=== PATIENT | male | born 1990 | race Caucasian/White ===

== ENCOUNTER 2020-11-14 13:23 | Outpatient (REF) | payer OTHER, SELFPAY ==
[2020-11-14 13:50] LABS: MANUAL DIFF FLAG NO
[2020-11-14 13:57] LABS: Basophils Percent Auto 0.4 % (0-2); Eosinophils Percent Auto 0.8 % (0-4); Hematocrit 42.2 % (42-52); Hemoglobin 13.8 g/dl (14.0-18.0); Imm Gran Abs Auto 0.01 X10*3/uL (0.00-0.03); Imm Gran Pct Auto 0.2 % (0.0-0.4); Lymphocytes Absolute Auto 1.5 X10*3/uL (1.2-4.9); Lymphocytes Percent Auto 30.1 % (20-40); Mean Corpuscular HGB Conc 32.7 g/dl (31.0-36.0); Mean Corpuscular Hemoglobin 28.4 pg (27.0-33.0); Mean Corpuscular Volume 86.8 fL (80-98); Mean Platelet Volume 10.5 fL (9.4-12.4); Monocytes Absolute Auto 0.6 X10*3/uL (0.1-1.2); Monocytes Percent Auto 11.5 % (2-11); Neutrophils Absolute Auto 2.8 X10*3/uL (2.0-8.3); Platelet Count 316 X10*3/uL (160-400); Red Blood Count 4.86 X10*6/uL (4.60-5.80); Red Cell Distribution Width 11.8 % (11.0-16.0); White Blood Count 4.9 X10*3/uL (4.8-10.8)
[2020-11-14 14:19] LABS: Alanine Aminotransferase 29 U/L (0-40); Albumin Level 4.2 g/dL (3.5-5.0); Alkaline Phosphatase 95 U/L (39-117); Anion Gap 13 (12-20); Aspartate Amino Transferase 20 U/L (5-37); Bilirubin Total 0.6 mg/dL (0.0-1.0); Blood Urea Nitrogen 14 mg/dL (9-16); Calcium 8.6 mg/dL (8.4-10.2); Carbon Dioxide 24 mmol/L (22-29); Chloride 107 mmol/L (96-108); Cholesterol 153 mg/dL; Estimated Glomerular Filt Rate > 60; Glucose Fasting 102 mg/dL (60-99); HDL Cholesterol 47 mg/dL; LDL Cholesterol Calculated 99 mg/dl; Potassium 4.4 mmol/L (3.3-5.1); Sodium 140 mmol/L (135-145); Total Protein 6.5 g/dL (6.5-8.0); Triglycerides 38 mg/dL
== END 2020-11-14 13:24 | disposition home or self-care (01) ==
LOC: HO.LAB 13:23
PROVIDERS: PCP Internal Medicine; Visit Provider Internal Medicine
DX: Z00.00 Encounter for general adult medical examination without abnormal findings (principal); E11.9 Type 2 diabetes mellitus without complications
CPT/HCPCS: 36415; 80053; 80061; 85025

== ENCOUNTER 2020-12-29 15:06 | Outpatient (REF) | payer OTHER, SELFPAY ==
--- NOTE | ~2020-12-29 | XR_ITS ---
EXAMINATION: XR KNEE, RIGHT CLINICAL INFORMATION: Pain COMPARISON: None TECHNIQUE: Four views of the right knee. FINDINGS: Postsurgical changes from cruciate ligament repair. Bones and soft tissues are normal. No fracture or joint effusion. Alignment is anatomic. Mild narrowing of medial joint space suggest mild DJD.. No abnormal soft tissue calcification. XR/XR knee RT 4V IMPRESSION: Postoperative changes. Mild DJD medial compartment.
== END 2020-12-29 15:07 | disposition home or self-care (01) ==
LOC: HO.XRAY 15:06
PROVIDERS: PCP Internal Medicine; Visit Provider Nurse Practitioner Family
DX: M25.561 Pain in right knee (principal)
CPT/HCPCS: 73564

== ENCOUNTER 2021-01-25 14:00 | Outpatient (RCR) | payer OTHER, SELFPAY | END 2021-03-02 10:10 | disposition other institution (70) | LOC: HO.OT 14:00 | PROVIDERS: PCP Internal Medicine; Visit Provider Nurse Practitioner Family | DX: M77.01 Medial epicondylitis, right elbow (principal) | CPT/HCPCS: 97033; 97110; 97140; 97166 ==

== ENCOUNTER 2021-07-11 17:04 | Outpatient (REF) | payer OTHER, SELFPAY ==
--- NOTE | ~2021-07-11 | XR_ITS ---
EXAMINATION: XR CHEST CLINICAL INFORMATION: Bronchitis COMPARISON: Previous chest x-ray most recent October 2018 TECHNIQUE: 2 views of the chest were obtained. FINDINGS: The cardiac and mediastinal contours are normal. There is increased attenuation in the right upper lung questionable for small right upper lobe pneumonia. This overlies the right anterior third rib. The lungs are otherwise clear. There is no pleural effusion or pneumothorax. Bony structures are unremarkable. XR/XR chest 2V IMPRESSION: Question small right upper lobe pneumonia.
[2021-07-11 17:14] LABS: MANUAL DIFF FLAG NO
[2021-07-11 17:49] LABS: Basophils Percent Auto 0.1 % (0-2); Hematocrit 47.6 % (42.0-52.0); Hemoglobin 15.6 g/dl (14.0-18.0); Imm Gran Abs Auto 0.03 X10*3/uL (0.00-0.03); Imm Gran Pct Auto 0.4 % (0.0-0.4); Lymphocytes Absolute Auto 0.7 X10*3/uL (1.2-4.9); Mean Corpuscular HGB Conc 32.8 g/dl (31.0-36.0); Mean Corpuscular Hemoglobin 27.9 pg (27.0-33.0); Mean Platelet Volume 10.9 fL (9.4-12.4); Monocytes Absolute Auto 0.2 X10*3/uL (0.1-1.2); Monocytes Percent Auto 1.8 % (2-11); Neutrophils Absolute Auto 7.4 x10*3/uL (2.0-8.3); Neutrophils Percent Auto 89.7 % (45-73); Platelet Count 297 X10*3/uL (160-400); Red Cell Distribution Width 11.6 % (11.0-16.0); White Blood Count 8.3 X10*3/uL (4.8-10.8)
[2021-07-11 18:14] LABS: Alanine Aminotransferase 50 U/L (0-40); Albumin Level 4.7 g/dL (3.5-5.0); Alkaline Phosphatase 90 U/L (39-117); Anion Gap 13 (12-20); Aspartate Amino Transferase 42 U/L (5-37); Bilirubin Total 0.6 mg/dL (0.0-1.0); Blood Urea Nitrogen 13 mg/dL (9-16); Calcium 9.4 mg/dL (8.4-10.2); Carbon Dioxide 29 mmol/L (22-29); Chloride 102 mmol/L (96-108); Cholesterol 143 mg/dL; Estimated Glomerular Filt Rate > 60; Glucose Fasting 86 mg/dL (60-99); HDL Cholesterol 37 mg/dL; LDL Cholesterol Calculated 88 mg/dl; Potassium 4.3 mmol/L (3.3-5.1); Sodium 140 mmol/L (135-145); Total Protein 7.7 g/dL (6.5-8.0); Triglycerides 94 mg/dL
[2021-07-11 18:35] LABS: Thyroid Stimulating Hormone 0.59 uIU/mL (0.32-4.0)
== END 2021-07-11 17:05 | disposition home or self-care (01) ==
LOC: HO.XRAY 17:04
PROVIDERS: PCP Physician Assistant; Visit Provider Internal Medicine
DX: Z00.00 Encounter for general adult medical examination without abnormal findings (principal); J40 Bronchitis, not specified as acute or chronic
CPT/HCPCS: 36415; 71046; 80053; 80061; 84443; 85025

== ENCOUNTER → 2021-12-05 14:13 | Outpatient (BNVA) | payer OTHER, SELFPAY | PROVIDERS: PCP Internal Medicine; Referring Provider Internal Medicine; Visit Provider Internal Medicine | DX: R01.1 Cardiac murmur, unspecified (principal); R00.2 Palpitations | CPT/HCPCS: 93005; 99202 ==

== ENCOUNTER → 2021-12-14 10:09 | Outpatient (BNVA) | payer OTHER, SELFPAY | PROVIDERS: PCP Internal Medicine; Referring Provider Internal Medicine; Visit Provider Surgery | DX: L72.3 Sebaceous cyst (principal); L98.9 Disorder of the skin and subcutaneous tissue, unspecified; I88.9 Nonspecific lymphadenitis, unspecified | CPT/HCPCS: 99202 ==

== ENCOUNTER 2021-12-21 14:05 | Outpatient (REF) | payer OTHER, SELFPAY ==
--- NOTE | ~2021-12-21 | XR_ITS ---
EXAMINATION: CERVICAL SPINE. LUMBAR SPINE. CLINICAL INFORMATION: Neck pain and low back pain. COMPARISON: None TECHNIQUE: Lumbar spine 3 views. Cervical spine 3 views. FINDINGS: Lumbar spine: There is normal lumbar lordosis. The vertebral heights, alignment and disc heights are normal. No visible acute fracture, dislocation or lytic process seen. The paravertebral soft tissues are normal. The SI joints are normal. Soft tissues are normal. XR/XR cervical spine 2V IMPRESSION: Unremarkable lumbar spine exam.
--- NOTE | ~2021-12-21 | XR_ITS ---
EXAMINATION: CERVICAL SPINE. LUMBAR SPINE. CLINICAL INFORMATION: Neck pain and low back pain. COMPARISON: None TECHNIQUE: Lumbar spine 3 views. Cervical spine 3 views. FINDINGS: Lumbar spine: There is normal lumbar lordosis. The vertebral heights, alignment and disc heights are normal. No visible acute fracture, dislocation or lytic process seen. The paravertebral soft tissues are normal. The SI joints are normal. Soft tissues are normal. XR/XR lumbar spine 2-3V IMPRESSION: Unremarkable lumbar spine exam.
== END 2021-12-21 14:06 | disposition home or self-care (01) ==
LOC: HO.XRAY 14:05
PROVIDERS: PCP Internal Medicine; Visit Provider Internal Medicine
DX: M54.9 Dorsalgia, unspecified (principal); M54.2 Cervicalgia
CPT/HCPCS: 72040; 72100

== ENCOUNTER 2021-12-28 09:50 | Outpatient (REF) | payer OTHER, SELFPAY | END 2021-12-28 09:51 | disposition home or self-care (01) | LOC: HO.LAB 09:50 | PROVIDERS: PCP Internal Medicine; Visit Provider Surgery | DX: L72.3 Sebaceous cyst (principal); L98.9 Disorder of the skin and subcutaneous tissue, unspecified; Z87.891 Personal history of nicotine dependence | CPT/HCPCS: 11401; 11422; 88304 ==

== ENCOUNTER → 2022-01-22 13:10 | Outpatient (REF) | payer OTHER, SELFPAY ==
--- NOTE | 2022-01-22 13:13 | CA_ITS ---
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 The calculated ejection fraction is 63% by biplane method. - There is mildly decreased right ventricular systolic function. - No obvious valvular pathology seen on this study. Findings Left Ventricle Normal left ventricular cavity size. There is normal left ventricular wall thickness. The left ventricular systolic function is normal. The calculated ejection fraction is 63% by biplane method. There is no evidence of regional wall motion abnormalities. Diastolic function is normal for age. LV peak GLS -22%. Right Ventricle Mildly increased right ventricular cavity size. There is mildly decreased right ventricular systolic function. Atria Both atria are normal in size. Aortic Valve There is a normal trileaflet aortic valve. There is no aortic valve stenosis. There is no aortic valve regurgitation. Mitral Valve The mitral valve appears normal. There is no mitral valve regurgitation. There is no mitral valve stenosis. Pulmonic Valve The pulmonic valve is likely normal. Tricuspid Valve Normal tricuspid valve structure. There is no tricuspid valve regurgitation. Tricuspid regurgitation envelope is inadequate for calculation of right ventricular systolic pressure. Great Vessels The aortic annulus, sinuses of valsalva, sino tubular ridge, and asc aorta are normal in size. Venous The inferior vena cava is normal in size and collapses greater than 50% with inspiration. Pericardium/Pleural There is no evidence of pericardial effusion. Prior Study Comparison Changes noted compared to prior study dated: 01/22/2017. See comments on RV. Recommendations, Care & Conclusions No obvious valvular pathology seen on this study. Measurements 2D Linear Measurements IVSd: 0.94 0.6-0.9/0.6-1.0 cm LVIDd: 5.19 3.9-5.3/4.2-5.9 cm LVIDd Index: 2.51 2.4-3.2/2.2-3.1 cm/m2 LVIDs: 3.19 2.0-3.6 cm LVPWd: 0.70 0.7-1.1 cm LA Diam: 4.20 2.7-3.8/3.0-4.0 cm LAIDs Index: 2.03 1.5-2.3 cm/m2 LV Mass: 185.38 67-162/88-224 g LV Mass Index: 89.56 43-95/49-115 g/m2 LVOT Diam: 2.00 3.0+(-)1.3 cm 2D Systolic Function EF 4C: 63.10 >55% EF 2C: 63.00 >55% EF BiP: 63.00 >55% Mitral Valve MV Pk E: 0.78 MV PK A: 0.43 MV Decel Time: 202.00 E/A: 1.80 E'Lateral: 13.20 E'Medial: 9.14 E/E' Med: 8.50 E/E' Lat: 5.90 PHT: 59.00 MVA PHT: 3.73 Decel Mccone: 3.85 Aortic Valve AoV Pk Brad: 1.29 AoV Mn Brad: 0.96 AoV VTI: 0.27 AoV Pk Grad: 7.00 Aov Mn Grad: 4.00 CLAY Cont.VTI: 2.50 LVOT LVOT Pk Brad: 1.00 LVOT Mn Brad: 0.79 LVOT VTI: 0.22 LVOT Pk Grad: 4.00 LVOT Mn Grad: 3.00 LVOT Diam: 2.00 LVOT Area: 3.14 Diastolic Function MV Pk E: 0.78 MV Pk A: 0.43 E/A: 1.80 E'Medial: 9.14 E/E' Med: 8.50 E' Laterial: 13.20 E/E' Lat: 5.90 Right Ventricle TAPSE (mm): 15.50 TVS' Brad: 11.40 Tricuspid Valve RA Press: 3.00 Great Vessels Aorta Sinus of Valsalva: 2.80 2.0-3.[address] Ridge: 2.47 1.7-3.4 cm Ao Asc: 2.80 2.1-3.4 cm Ao Arch: 2.30 Ao Desc: 1.60 Pulmonary Veins Pulm Vein S/D 0.50 Pulmonary Valve PV Pk Brad: 1.19 Peak PV Grad: 6.00 Updated in Other Vendor System with Status of Final Ermias Morales MD electronically signed on 01/24/2022 4:13:15 PM with status of Final
--- NOTE | 2022-01-22 13:13 | HM_ITS ---
Conclusion: 1. Patient was monitored for total period of 2 days and 23 hours 2. Baseline was normal sinus rhythm with average heart rate 74 beats per minute 3. No significant pauses or bradycardia noted 4. Very rare ectopy noted 5. No patient reported events MTDD
== END ==
LOC: HO.CARD 13:10
PROVIDERS: PCP Internal Medicine; Visit Provider Internal Medicine
DX: R01.1 Cardiac murmur, unspecified (principal); R00.2 Palpitations
CPT/HCPCS: 93242; 93306; 93356

== ENCOUNTER → 2022-01-31 09:17 | Outpatient (BNVA) | payer OTHER, SELFPAY | PROVIDERS: PCP Internal Medicine; Referring Provider Internal Medicine; Visit Provider Internal Medicine | DX: R01.1 Cardiac murmur, unspecified (principal); R00.2 Palpitations; I51.7 Cardiomegaly; G47.33 Obstructive sleep apnea (adult) (pediatric) | CPT/HCPCS: 99212 ==

== ENCOUNTER → 2022-02-19 15:57 | Outpatient (REF) | payer OTHER, SELFPAY | LOC: HO.SL 15:57 | PROVIDERS: PCP Internal Medicine; Visit Provider Internal Medicine | DX: G47.33 Obstructive sleep apnea (adult) (pediatric) (principal) | CPT/HCPCS: 95806 ==

== ENCOUNTER 2022-06-12 11:13 | Outpatient (REF) | payer OTHER, SELFPAY ==
--- NOTE | ~2022-06-12 | XR_ITS ---
EXAMINATION: XR CHEST CLINICAL INFORMATION: R07.9 - Chest pain, unspecified COMPARISON: Chest radiographs 07/11/2021 and 11/24/2018 TECHNIQUE: 2 views of the chest were obtained. FINDINGS: No pneumothorax, hyperinflation, airspace consolidation, or groundglass opacity. The costophrenic sulci are clear. The heart is normal in size. The vascularity is normal. Hilar and mediastinal contours and bony structures are unremarkable. XR/XR chest 2V IMPRESSION: Unremarkable examination.
== END 2022-06-12 11:14 | disposition home or self-care (01) ==
LOC: HO.XRAY 11:13
PROVIDERS: PCP Internal Medicine; Visit Provider Internal Medicine
DX: R07.9 Chest pain, unspecified (principal)
CPT/HCPCS: 71046

== ENCOUNTER 2022-12-30 13:45 | Outpatient (REF) | payer OTHER, SELFPAY ==
[2022-12-30 13:54] LABS: MANUAL DIFF FLAG NO
[2022-12-30 14:26] LABS: Basophils Percent Auto 0.3 % (0-2); Eosinophils Percent Auto 0.3 % (0-4); Hematocrit 45.6 % (42.0-52.0); Imm Gran Abs Auto 0.03 X10*3/uL (0.00-0.03); Imm Gran Pct Auto 0.3 % (0.0-0.4); Lymphocytes Absolute Auto 1.5 X10*3/uL (1.2-4.9); Lymphocytes Percent Auto 13.2 % (20-40); Mean Corpuscular HGB Conc 32.9 g/dl (31.0-36.0); Mean Corpuscular Volume 85.1 fL (80.0-98.0); Mean Platelet Volume 10.8 fL (9.4-12.4); Monocytes Absolute Auto 0.7 X10*3/uL (0.1-1.2); Monocytes Percent Auto 6.3 % (2-11); Neutrophils Absolute Auto 8.9 x10*3/uL (2.0-8.3); Neutrophils Percent Auto 79.6 % (45-73); Platelet Count 324 X10*3/uL (160-400); Red Blood Count 5.36 X10*6/uL (4.60-5.80); Red Cell Distribution Width 12.2 % (11.0-16.0); White Blood Count 11.1 X10*3/uL (4.8-10.8)
[2022-12-30 15:38] LABS: Alanine Aminotransferase 30 U/L (0-40); Albumin Level 4.5 g/dL (3.5-5.0); Alkaline Phosphatase 106 U/L (39-117); Anion Gap 11 (12-20); Aspartate Amino Transferase 19 U/L (5-37); Bilirubin Total 0.7 mg/dL (0.0-1.0); Blood Urea Nitrogen 14 mg/dL (9-16); Calcium 9.5 mg/dL (8.4-10.2); Carbon Dioxide 29 mmol/L (22-29); Chloride 107 mmol/L (96-108); Cholesterol 178 mg/dL; Estimated Glomerular Filt Rate > 60; Glucose Fasting 103 mg/dL (60-99); HDL Cholesterol 53 mg/dL; LDL Cholesterol Calculated 117 mg/dl; Potassium 4.6 mmol/L (3.3-5.1); Sodium 142 mmol/L (135-145); Total Protein 7.2 g/dL (6.5-8.0); Triglycerides 42 mg/dL
[2022-12-30 15:56] LABS: Thyroid Stimulating Hormone 0.82 uIU/mL (0.32-4.0)
[2023-01-08 15:14] LABS: Testosterone, Free 67.9 pg/mL (35.0-155.0); Testosterone, Total 348 ng/dL (250-1100)
== END 2022-12-30 13:46 | disposition home or self-care (01) ==
LOC: HO.LAB 13:45
PROVIDERS: PCP Internal Medicine; Visit Provider Internal Medicine
DX: E78.5 Hyperlipidemia, unspecified (principal); D64.9 Anemia, unspecified; N28.9 Disorder of kidney and ureter, unspecified; R53.83 Other fatigue; E03.9 Hypothyroidism, unspecified
CPT/HCPCS: 36415; 80053; 80061; 84402; 84403; 84443; 85025

== ENCOUNTER → 2022-12-31 12:50 | Outpatient (REF) | payer OTHER, SELFPAY ==
--- NOTE | 2022-12-31 12:52 | CA_ITS ---
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 The calculated ejection fraction is 67% by biplane method. - No obvious valvular pathology seen on this study. Findings Left Ventricle Normal left ventricular cavity size. There is normal left ventricular wall thickness. The left ventricular systolic function is normal. The calculated ejection fraction is 67% by biplane method. There is no evidence of regional wall motion abnormalities. Diastolic function is normal for age. LV peak GLS -18.1%. Right Ventricle Normal right ventricular cavity size and systolic function. Atria Both atria are normal in size. Aortic Valve There is a normal trileaflet aortic valve. There is no aortic valve stenosis. There is no aortic valve regurgitation. Mitral Valve The mitral valve appears normal. There is no mitral valve regurgitation. There is no mitral valve stenosis. Pulmonic Valve The pulmonic valve is likely normal. Tricuspid Valve There is no tricuspid valve regurgitation. Tricuspid regurgitation envelope is inadequate for calculation of right ventricular systolic pressure. Great Vessels The asc aorta is normal in size. Venous The inferior vena cava is normal in size and collapses greater than 50% with inspiration. Pericardium/Pleural There is no evidence of pericardial effusion. Prior Study Comparison Changes noted compared to prior study dated: 01/22/2022. TAPSE in normal range. Recommendations, Care & Conclusions No obvious valvular pathology seen on this study. Measurements 2D Linear Measurements IVSd: 0.99 0.6-0.9/0.6-1.0 cm LVIDd: 4.97 3.9-5.3/4.2-5.9 cm LVIDd Index: 2.13 2.4-3.2/2.2-3.1 cm/m2 LVIDs: 3.10 2.0-3.6 cm LVPWd: 0.92 0.7-1.1 cm LA Diam: 3.70 2.7-3.8/3.0-4.0 cm LAIDs Index: 1.59 1.5-2.3 cm/m2 LV Mass: 211.16 67-162/88-224 g LV Mass Index: 90.63 43-95/49-115 g/m2 LVOT Diam: 2.00 3.0+(-)1.3 cm 2D Systolic Function EF 4C: 66.00 >55% EF 2C: 67.80 >55% EF BiP: 67.10 >55% Mitral Valve MV Pk E: 0.73 MV PK A: 0.48 MV Decel Time: 253.00 E/A: 1.50 E'Lateral: 16.40 E'Medial: 9.46 E/E' Med: 7.70 E/E' Lat: 4.50 PHT: 74.00 MVA PHT: 2.97 Decel Mifflin: 2.90 Aortic Valve AoV Pk Brad: 1.45 AoV Mn Brad: 1.06 AoV VTI: 0.33 AoV Pk Grad: 8.00 Aov Mn Grad: 5.00 CLAY Cont.VTI: 2.34 LVOT LVOT Pk Brad: 1.17 LVOT Mn Brad: 0.71 LVOT VTI: 0.24 LVOT Pk Grad: 5.00 LVOT Mn Grad: 2.00 LVOT Diam: 2.00 LVOT Area: 3.14 Diastolic Function MV Pk E: 0.73 MV Pk A: 0.48 E/A: 1.50 E'Medial: 9.46 E/E' Med: 7.70 E' Laterial: 16.40 E/E' Lat: 4.50 Right Ventricle TAPSE (mm): 24.90 TVS' Brad: 11.50 Tricuspid Valve RA Press: 3.00 Great Vessels Aorta Sinus of Valsalva: 2.97 2.0-3.[address] Ridge: 2.11 1.7-3.4 cm Ao Asc: 2.80 2.1-3.4 cm Updated in Other Vendor System with Status of Final Ermias Morales MD electronically signed on 01/01/2023 9:58:32 AM with status of Final
== END ==
LOC: HO.CARD 12:50
PROVIDERS: PCP Internal Medicine; Visit Provider Internal Medicine
DX: I51.7 Cardiomegaly (principal)
CPT/HCPCS: 93306; 93356

== ENCOUNTER → 2023-01-30 13:03 | Outpatient (BNVA) | payer OTHER, SELFPAY | PROVIDERS: PCP Internal Medicine; Referring Provider Internal Medicine; Visit Provider Internal Medicine | DX: R01.1 Cardiac murmur, unspecified (principal); R00.2 Palpitations; I51.7 Cardiomegaly | CPT/HCPCS: 93005; 99212 ==

== ENCOUNTER 2023-02-27 11:42 | Outpatient (AMB) | payer OTHER, SELFPAY ==
--- NOTE | 2023-02-27 11:48 | A.OFFPC_ITS ---
Vital Signs 02/27/23 11:51 Height 5 ft 7 in Weight 214 lb 6 oz BMI 33.6 BP 132/70 Blood Pressure Location Lt brachial Position Sitting Pulse 69 Pulse Source Pulse Oximeter Pulse Oximetry (%) 100 Oxygen Delivery Method Room Air Intake Visit Reasons: Dropped weight on pinky-foot Intake Note: Patient is here today for dropping weight on his right baby toe. Client Server Developer Required: No Mold Designer: Not Required per policy Accompanied by: Self / Same As Patient Allergies diphenhydramine Allergy (Intermediate, Verified 02/27/23 11:50) hives apple [APPLE] Allergy (Mild, Verified 02/27/23 11:50) NECK PAIN COUGH amoxicillin [AMOXICILLIN] Allergy (Unknown, Verified 02/27/23 11:50) HIVES azithromycin [From ZITHROMAX] Allergy (Unknown, Verified 02/27/23 11:50) COLITIS clindamycin [CLINDAMYCIN] Allergy (Unknown, Verified 02/27/23 11:50) GI PROBLEMS lactose [LACTOSE] Allergy (Unknown, Verified 02/27/23 11:50) GI SYMPTOMS, VOMITING, DIFF BREATHING levofloxacin [Levaquin] Allergy (Unknown, Verified 02/27/23 11:50) rash on hand naproxen [NAPROXEN] Allergy (Unknown, Verified 02/27/23 11:50) STOMACH UPSET penicillin V Allergy (Unknown, Verified 02/27/23 11:50) hives Penicillins [PENICILLINS] Allergy (Unknown, Verified 02/27/23 11:50) HIVES Sulfa (Sulfonamide Antibiotics) [SULFA (SULFONAMIDE ANTIBIOTICS)] Allergy (Unknown, Verified 02/27/23 11:50) HIVES aspirin Adverse Reaction (Unknown, Verified 02/27/23 11:50) upset stomach sertraline [Zoloft] Adverse Reaction (Unknown, Verified 02/27/23 11:50) SI thoughts all nsaids Allergy (Unknown, Uncoded 02/27/23 11:50) stomach upset Codeine Phosphate Allergy (Unknown, Uncoded 02/27/23 11:50) hives Medication List - Last Reconciled 02/27/23 by Norris Villasenor MD omeprazole 20 mg PO DAILY Tobacco use date assessed: 02/27/23 Dental Screening Dental Screen Date: 02/27/23 Did you have a dental visit in the last 12 months?: Yes Did you have a dental problem in the last 6 months where you did not have access to dental care?: No Was dental information given to patient?: Patient has dentist HPI Dropped weight on pinky-foot HPI Details weight fell on right foot today 4th and 5th toes [facility] Medical History (Updated 06/12/22 @ 11:03 by Norris Villasenor MD) Elevated BP without diagnosis of hypertension Surgical History History of anterior cruciate ligament surgery History of knee surgery History of tonsillectomy Family History Mother Hypertension Father Diabetes Hypertension High cholesterol Brother WPW (Yddek-Fqloyzdhc-Zrowh syndrome) Social History Housing: Apartment Alcohol intake: current Alcohol intake frequency: does not drink Patient Tobacco Use Status: Former Tobacco user e-Cigarette/Vaping Use: Never Used Second Hand Smoke Exposure: No service: Yes Current occupational status: employed Current occupational exposures/hazards: No Cognitive needs: No Hearing needs: No Vision needs: Yes Questionnaire PHQ-9 Over the last 2 weeks, how often have you been bothered by any of the following problems? 1. Little interest or pleasure in doing things: not at all 2. Feeling down, depressed, or hopeless: not at all 3. Trouble falling or staying asleep, or sleeping too much: not at all 4. Feeling tired or having little energy: not at all 5. Poor appetite or overeating: not at all 6. Feeling bad about yourself - or that you are a failure or have let yourself or your family down: not at all 7. Trouble concentrating on things, such as reading the newspaper or watching television: not at all 8. Moving or speaking so slowly that other people could have noticed. Or the opposite - being so fidgety or restless that you have been moving around a lot more than usual: not at all 9. Thoughts that you would be better off or of hurting yourself in some way: not at all Total score: 0 Depression Screening Interpretation: Negative Source: Developed by Drs. Cuate Luna, La Nena B.Aman Petty and colleagues, with an educational priscila from [employer]. Thrive Questionnaire Date Thrive assessed: 02/27/23 I am a: Patient What is your living situation today?: I have a steady place to live Within the past 12 months, did the food you bought not last and you didn't have the money to get more?: Never true Within the past 12 months, did you worry whether your food would run out before you got money to buy more?: Never true Do you have trouble paying for medicines?: No Do you have trouble getting transportation to medical appointments?: No Do you have trouble paying your heating and electricity bill?: No Do you have trouble taking care of your child, family member or friend?: No Do you have trouble with day-to-day activities such as bathing, preparing meals, shopping, managing finances, etc.?: No Are you currently unemployed and looking for a job?: No Are you interested in more education?: No Currently or been in a relationship where the following occur: no concerns reported AUDIT C Alcohol Use Questionnaire (AUDIT-C) 1. How often do you have a drink containing alcohol?: Never Total Score: 0 SUDARSHAN-7 AMB Questionnaire SUDARSHAN-7 Date SUDARSHAN - 7 assessed: 02/27/23 Feeling nervous, anxious, or on edge: 0 = Not at all Not being able to stop or control worryin = Not at all Worrying too much about different things: 0 = Not at all Trouble relaxin = Not at all Being so restless that it is hard to sit still: 0 = Not at all Becoming easily annoyed or irritable: 0 = Not at all Feeling afraid as if something awful might happen: 0 = Not at all Total SUDARSHAN-7 score (0-4 normal; 5-9 mild; 10-14 moderate; 15-21 severe): 0 Source: Developed by Drs. Cuate Luna, Aman Bernabe and colleagues, with an educational priscila from [employer]. Review of Systems Const Denies chills, Denies headache(s) and Denies weight loss ENT Denies headache(s) Card Denies chest pain, Denies syncope, Denies irregular heart rhythm and Denies dyspnea Resp Denies chest congestion, Denies cough and Denies dyspnea GI Denies abdominal pain, Denies change in stool character, Denies nausea and Denies vomiting Musc Denies deformity and Denies joint swelling Neuro Denies syncope and Denies headache(s) Physical exam (Primary Care) Vital Signs: Last Vital Signs Pulse 69 02/27/23 11:51 BP 132/70 02/27/23 11:51 Pulse Ox 100 02/27/23 11:51 Oxygen Delivery Method Room Air 02/27/23 11:51 BMI result Body Mass Index 33.6 Tobacco/Smoking Status: Tobacco use Status Tobacco use date assessed 02/27/23 02/27/23 11:55 Patient Tobacco Use Status Former Tobacco user 02/27/23 11:55 e-Cigarette/Vaping Use Never Used 02/27/23 11:55 PHQ-9: PHQ-9 Score PHQ-9: Total score 0 02/27/23 11:55 Depression Screening Interpretation: Negative Thrive Assessment: Date of Thrive Assessment Date Thrive assessed 02/27/23 02/27/23 11:55 Currently or been in a relationship where the following occur: no concerns reported Const General: cooperative and no acute distress Chest Chest palpation & inspection: normal inspection of the chest GI Inspection: Yes normal to inspection Extrem Other: contusions on right 4th and 5th toes Assessment and Plan Assessment & Plan (1) Toe trauma: Code(s): S99.929A - Unspecified injury of unspecified foot, initial encounter Plan: xr ordered Orders: Orders XR foot RT 2V Today M79.673 - Pain in unspecified foot Medications: Refilled omeprazole 20 mg PO DAILY 90 tabs 8RF Coding Level of Care Code Est Pt Level 3 (12423) Diagnoses Toe trauma S99.929A
[2023-02-27 11:51] VITALS: BP 132/70; PULSE 69; O2SAT 100; BMI 33.6
== END 2023-02-27 12:00 | disposition home or self-care (01) ==
PROVIDERS: PCP Internal Medicine; Visit Provider Internal Medicine
DX: S99.929A Unspecified injury of unspecified foot, initial encounter (principal)
CPT/HCPCS: 99213

== ENCOUNTER 2023-02-27 12:13 | Outpatient (REF) | payer OTHER, SELFPAY ==
--- NOTE | ~2023-02-27 | XR_ITS ---
EXAMINATION: XR FOOT, RIGHT CLINICAL INFORMATION: Pain. COMPARISON: None available. TECHNIQUE: AP, lateral, and oblique views of the right foot. FINDINGS: The bones and soft tissues are normal. No fracture. Alignment is anatomic. Joint spaces are maintained. XR/XR foot RT 2V IMPRESSION: Unremarkable right foot.
== END 2023-02-27 12:14 | disposition home or self-care (01) ==
LOC: HO.XRAY 12:13
PROVIDERS: PCP Internal Medicine; Visit Provider Internal Medicine
DX: M79.671 Pain in right foot (principal)
CPT/HCPCS: 73620

== ENCOUNTER 2023-06-02 08:27 | Outpatient (AMB) | payer OTHER, SELFPAY ==
[2023-06-02 08:31] VITALS: BP 136/82; PULSE 58; O2SAT 98; BMI 33.5
--- NOTE | 2023-06-02 08:31 | MHC.PC.OV ---
Vital Signs 06/02/23 08:31 Height 5 ft 7 in Weight 214 lb BMI 33.5 BP 136/82 Blood Pressure Location Lt brachial Position Sitting Pulse 58 Pulse Source Pulse Oximeter Pulse Oximetry (%) 98 Oxygen Delivery Method Room Air Intake Visit Reasons: Carpal tunnel left hand. Allergy testing. 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 Outside: Not Required per policy Accompanied by: Self / Same As Patient Allergies diphenhydramine Allergy (Intermediate, Verified 06/02/23 08:31) hives apple [APPLE] Allergy (Mild, Verified 06/02/23 08:31) NECK PAIN COUGH amoxicillin [AMOXICILLIN] Allergy (Unknown, Verified 06/02/23 08:31) HIVES azithromycin [From ZITHROMAX] Allergy (Unknown, Verified 06/02/23 08:31) COLITIS clindamycin [CLINDAMYCIN] Allergy (Unknown, Verified 06/02/23 08:31) GI PROBLEMS lactose [LACTOSE] Allergy (Unknown, Verified 06/02/23 08:31) GI SYMPTOMS, VOMITING, DIFF BREATHING levofloxacin [Levaquin] Allergy (Unknown, Verified 06/02/23 08:31) rash on hand naproxen [NAPROXEN] Allergy (Unknown, Verified 06/02/23 08:31) STOMACH UPSET penicillin V Allergy (Unknown, Verified 06/02/23 08:31) hives Penicillins [PENICILLINS] Allergy (Unknown, Verified 06/02/23 08:31) HIVES Sulfa (Sulfonamide Antibiotics) [SULFA (SULFONAMIDE ANTIBIOTICS)] Allergy (Unknown, Verified 06/02/23 08:31) HIVES aspirin Adverse Reaction (Unknown, Verified 06/02/23 08:31) upset stomach sertraline [Zoloft] Adverse Reaction (Unknown, Verified 06/02/23 08:31) SI thoughts all nsaids Allergy (Unknown, Uncoded 06/02/23 08:31) stomach upset Codeine Phosphate Allergy (Unknown, Uncoded 06/02/23 08:31) hives Medication List - Last Reconciled 06/02/23 by Norris Villasenor MD omeprazole 20 mg PO DAILY Tobacco use date assessed: 02/27/23 Dental Screening Dental Screen Date: 06/02/23 Did you have a dental visit in the last 12 months?: No Did you have a dental problem in the last 6 months where you did not have access to dental care?: No Was dental information given to patient?: Patient has dentist HPI Carpal tunnel left hand. Allergy testing. HPI Details diagnosed with left CTS last year at [facility]; symptoms persist [facility] Medical History Elevated BP without diagnosis of hypertension Surgical History History of tonsillectomy History of anterior cruciate ligament surgery History of knee surgery Family History Mother Hypertension Father Diabetes Hypertension High cholesterol Brother WPW (Oaziv-Ifuvxuabu-Sufak syndrome) Social History Housing: Apartment Alcohol intake: current Alcohol intake frequency: does not drink Patient Tobacco Use Status: Former Tobacco user e-Cigarette/Vaping Use: Never Used Second Hand Smoke Exposure: No service: Yes Current occupational status: employed Current occupational exposures/hazards: No Cognitive needs: No Hearing needs: No Vision needs: Yes Questionnaire PHQ-9 Over the last 2 weeks, how often have you been bothered by any of the following problems? 1. Little interest or pleasure in doing things: not at all 2. Feeling down, depressed, or hopeless: not at all 3. Trouble falling or staying asleep, or sleeping too much: not at all 4. Feeling tired or having little energy: not at all 5. Poor appetite or overeating: not at all 6. Feeling bad about yourself - or that you are a failure or have let yourself or your family down: not at all 7. Trouble concentrating on things, such as reading the newspaper or watching television: not at all 8. Moving or speaking so slowly that other people could have noticed. Or the opposite - being so fidgety or restless that you have been moving around a lot more than usual: not at all 9. Thoughts that you would be better off or of hurting yourself in some way: not at all Total score: 0 Depression Screening Interpretation: Negative Depression Screening Done: Yes 38072 - PHQ-9 Billing: Yes Source: Developed by Drs. Cuate Luna, La Nena B.WAman Ramires and colleagues, with an educational priscila from [employer]. Thrive Questionnaire Date Thrive assessed: 02/27/23 AUDIT C Alcohol Use Questionnaire (AUDIT-C) 1. How often do you have a drink containing alcohol?: Never Total Score: 0 Score Reviewed/Action Taken: Yes SUDARSHAN-7 AMB Questionnaire SUDARSHAN-7 Date SUDARSHAN - 7 assessed: 02/27/23 Source: Developed by Drs. Cuate Luna, Aman Bernabe and colleagues, with an educational priscila from [employer]. Review of Systems Const Denies chills, Denies headache(s) and Denies weight loss ENT Denies headache(s) Card Denies chest pain, Denies syncope, Denies irregular heart rhythm and Denies dyspnea Resp Denies chest congestion, Denies cough and Denies dyspnea GI Denies abdominal pain, Denies change in stool character, Denies nausea and Denies vomiting Musc Denies deformity and Denies joint swelling Neuro Denies syncope and Denies headache(s) Physical exam (Primary Care) Vital Signs: Last Vital Signs Pulse 58 06/02/23 08:31 BP 136/82 06/02/23 08:31 Pulse Ox 98 06/02/23 08:31 Oxygen Delivery Method Room Air 06/02/23 08:31 BMI result Body Mass Index 33.5 Tobacco/Smoking Status: Tobacco use Status Tobacco use date assessed 02/27/23 06/02/23 08:34 Patient Tobacco Use Status Former Tobacco user 06/02/23 08:34 e-Cigarette/Vaping Use Never Used 06/02/23 08:34 PHQ-9: PHQ-9 Score PHQ-9: Total score 0 06/02/23 08:38 Depression Screening Interpretation: Negative Thrive Assessment: Date of Thrive Assessment Date Thrive assessed 02/27/23 06/02/23 08:34 Const General: cooperative, comfortable, no acute distress and alert Neck Neck: Yes no lymphadenopathy Thyroid: Thyroid normal Resp Effort & Inspection: normal respiratory effort Auscultation: clear to auscultation bilaterally Percussion: percussion normal Cardio Jugular venous distension: no JVD Palpation: normal PMI Rate: regular rate Rhythm: regular rhythm Heart sounds: S1 normal heart sound present and S2 normal heart sound present GI Inspection: Yes normal to inspection Palpation (GI): No hepatosplenomegaly present Skin General skin exam: no rashes or lesions noted Extrem General: Yes no clubbing, cyanosis or edema Assessment and Plan Assessment & Plan (1) Carpal tunnel syndrome of left wrist: Code(s): G56.02 - Carpal tunnel syndrome, left upper limb Plan: ref REJI Orders: Referrals Orthopedics Referral G56.02 - Carpal tunnel syndrome, left upper limb Gastroenterology Referral R10.9 - Unspecified abdominal pain Coding Level of Care Code Est Pt Level 3 (58488) Diagnoses Carpal tunnel syndrome of left wrist G56.02
== END 2023-06-02 08:59 | disposition home or self-care (01) ==
LOC: HO.HMGH 08:27
PROVIDERS: PCP Internal Medicine; Visit Provider Internal Medicine
DX: G56.02 Carpal tunnel syndrome, left upper limb (principal); Z90.89 Acquired absence of other organs
CPT/HCPCS: 99213

== ENCOUNTER 2023-06-05 13:38 | Outpatient (AMB) | payer OTHER, SELFPAY ==
--- NOTE | 2023-06-05 13:50 | A.OFFVIS_ITS ---
Intake Vital Signs 06/05/23 13:52 Height 5 ft 7 in Weight 214 lb BMI 33.5 Intake Visit Reasons: New Pt - Left Hand CTS Intake Note: Mikal 32 yr old male who is right hand dominant presents today as a new patient for his left hand CTS. States symptoms started about 10 years ago and has worsen in the last year. States he has weakness in hands and is dropping items more frequent. Seen with [facility] gave a wrist brace to use at night time. Patient reports brace didnt help. States his right hand is not as bad as his left. Denies EMG study. Allergies diphenhydramine Allergy (Intermediate, Verified 06/05/23 13:51) hives apple [APPLE] Allergy (Mild, Verified 06/05/23 13:51) NECK PAIN COUGH amoxicillin [AMOXICILLIN] Allergy (Unknown, Verified 06/05/23 13:51) HIVES azithromycin [From ZITHROMAX] Allergy (Unknown, Verified 06/05/23 13:51) COLITIS clindamycin [CLINDAMYCIN] Allergy (Unknown, Verified 06/05/23 13:51) GI PROBLEMS lactose [LACTOSE] Allergy (Unknown, Verified 06/05/23 13:51) GI SYMPTOMS, VOMITING, DIFF BREATHING levofloxacin [Levaquin] Allergy (Unknown, Verified 06/05/23 13:51) rash on hand naproxen [NAPROXEN] Allergy (Unknown, Verified 06/05/23 13:51) STOMACH UPSET penicillin V Allergy (Unknown, Verified 06/05/23 13:51) hives Penicillins [PENICILLINS] Allergy (Unknown, Verified 06/05/23 13:51) HIVES Sulfa (Sulfonamide Antibiotics) [SULFA (SULFONAMIDE ANTIBIOTICS)] Allergy (Unknown, Verified 06/05/23 13:51) HIVES aspirin Adverse Reaction (Unknown, Verified 06/05/23 13:51) upset stomach sertraline [Zoloft] Adverse Reaction (Unknown, Verified 06/05/23 13:51) SI thoughts all nsaids Allergy (Unknown, Uncoded 06/05/23 13:51) stomach upset Codeine Phosphate Allergy (Unknown, Uncoded 06/05/23 13:51) hives HPI New Pt - Left Hand CTS HPI Details 32-year-old male who presents to the off ice today for evaluation of left hand. He states he has numbness and tingling in his bilateral hands for about 10 years which is has been worsened for the last 1 year. His symptoms are worse in his left hand. He also c/o weakness in his hands and frequently drops items. He was seen at [facility] where he was given a wrist brace to use at night which did not provide him any relief. [facility] Medical History Elevated BP without diagnosis of hypertension Surgical History History of tonsillectomy History of anterior cruciate ligament surgery History of knee surgery Family History Mother Hypertension Father Diabetes Hypertension High cholesterol Brother WPW (Hoprq-Kuwqijmwj-Symjl syndrome) Social History (Updated 06/05/23 @ 13:55 by Maryann Rivas [facility]) Housing: Apartment Alcohol intake: current Alcohol intake frequency: does not drink Patient Tobacco Use Status: Former Tobacco user e-Cigarette/Vaping Use: Never Used Second Hand Smoke Exposure: No service: Yes Current occupational status: employed 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 Current occupational exposures/hazards: No Cognitive needs: No Hearing needs: No Vision needs: Yes Review of Systems Const All systems reviewed & are unremarkable except as noted in HPI and below Physical Exam Vital Signs: BMI result Body Mass Index 33.5 Const General: cooperative, healthy appearing, comfortable, no acute distress, well developed and alert Orientation/consciousness: patient oriented x3 HEENT Head: Yes normal to inspection, Yes normocephalic and Yes atraumatic Eyes General: appearance normal, both eyes and all related structures Resp Effort & Inspection: normal respiratory effort and able to speak in complete sentences Cardio Rate: regular rate Peripheral pulses: Peripheral pulses 2+ throughout GI Palpation (GI): Soft to palpation Skin Lesions: no lesions Rashes: no rashes Neuro General: patient oriented x3 Extrem Other: Bilateral wrist: Normal to inspection. Tenderness over the carpal canal. Numbness and tingling over the median nerve distribution of the right hand. Able to make a full fist and fully extend all fingers. Positive Tinel's. Assessment & Plan Assessment & Plan (1) Carpal tunnel syndrome of left wrist: Code(s): G56.02 - Carpal tunnel syndrome, left upper limb (2) Carpal tunnel syndrome on right: Code(s): G56.01 - Carpal tunnel syndrome, right upper limb Plan We are going to obtain an EMG/nerve conduction study for bilateral wrist to further evaluate the etiology of his numbness and tingling. I did briefly discussed options if he does come back with median or ulnar nerve neuropathy. He will see me back once the study is complete. Orders: Orders NE electromyogram (EMG) Today R20.0 - Anesthesia of skin, R20.2 - Paresthesia of skin NE nerve conduction velocity Today R20.0 - Anesthesia of skin, R20.2 - Paresthesia of skin Patient Instructions: Scribed for Jossy Mccann PA-C, by Eric Ponce expert medical writer, on 06/05/2023 at 1:45 PM OWEN. Jossy Garcia PA-C, have personally reviewed and agree with the information entered by the scribe. Coding Level of Care Code New Pt Level 3 (84620) Diagnoses Carpal tunnel syndrome of left wrist G56.02 Carpal tunnel syndrome on right G56.01
[2023-06-05 13:52] VITALS: BMI 33.5
== END 2023-06-05 14:16 | disposition home or self-care (01) ==
PROVIDERS: PCP Internal Medicine; Visit Provider Physician Assistant
DX: G56.03 Carpal tunnel syndrome, bilateral upper limbs (principal)
CPT/HCPCS: 99203

== ENCOUNTER → 2023-06-05 13:38 | Outpatient (BNVA) | payer OTHER, SELFPAY | PROVIDERS: PCP Internal Medicine; Visit Provider Physician Assistant | DX: G56.03 Carpal tunnel syndrome, bilateral upper limbs (principal) | CPT/HCPCS: 99202 ==

== ENCOUNTER 2023-07-14 11:58 | Outpatient (REF) | payer OTHER, SELFPAY ==
--- NOTE | ~2023-07-14 | XR_ITS ---
EXAMINATION: XR KNEE STANDING, BILATERAL XR KNEE, RIGHT CLINICAL INFORMATION: Pain in unspecified knee. COMPARISON: X-ray of the right knee December 2020. TECHNIQUE: Upright views of both knees. Patellar and lateral views of the right knee. FINDINGS: RIGHT KNEE: Postsurgical changes related to anterior cruciate ligament reconstruction surgery. Medial Compartment: Marginal osteophytes and mild joint space narrowing indicative of mild osteoarthritis, unchanged. Lateral Compartment: Normal. Patellofemoral Compartment: Marginal osteophytes indicative of mild osteoarthritis, unchanged. No effusion. LEFT KNEE: Limited AP upright: Bone and joints unremarkable. XR/XR knee RT 2V IMPRESSION: Right knee: Postsurgical changes. Mild osteoarthritis unchanged. Left knee: Normal.
--- NOTE | ~2023-07-14 | XR_ITS ---
EXAMINATION: XR PELVIS CLINICAL INFORMATION: Pain in unspecified hip. COMPARISON: CT scan of the abdomen and pelvis July 2015. TECHNIQUE: AP view of the pelvis. FINDINGS: Small bone island in the femoral neck, unchanged. Small circular area of sclerosis in the femoral neck, likely reflects a cyst. No fracture. Hip joint spaces are maintained. Alignment is anatomic. Sacroiliac joints and pubic symphysis are normal. No abnormal soft tissue calcifications. XR/XR pelvis 1-2V IMPRESSION: No acute abnormality of the pelvis or hips. Probable cyst at the left femoral head-neck junction. This can be associated with femoroacetabular impingement syndrome in some patients. This is unchanged.
--- NOTE | ~2023-07-14 | XR_ITS ---
EXAMINATION: XR KNEE STANDING, BILATERAL XR KNEE, RIGHT CLINICAL INFORMATION: Pain in unspecified knee. COMPARISON: X-ray of the right knee December 2020. TECHNIQUE: Upright views of both knees. Patellar and lateral views of the right knee. FINDINGS: RIGHT KNEE: Postsurgical changes related to anterior cruciate ligament reconstruction surgery. Medial Compartment: Marginal osteophytes and mild joint space narrowing indicative of mild osteoarthritis, unchanged. Lateral Compartment: Normal. Patellofemoral Compartment: Marginal osteophytes indicative of mild osteoarthritis, unchanged. No effusion. LEFT KNEE: Limited AP upright: Bone and joints unremarkable. XR/XR knee standing BI IMPRESSION: Right knee: Postsurgical changes. Mild osteoarthritis unchanged. Left knee: Normal.
== END 2023-07-14 11:59 | disposition home or self-care (01) ==
LOC: HO.HOSX 11:58
PROVIDERS: Visit Provider Orthopaedic Surgery
DX: M25.561 Pain in right knee (principal); M25.461 Effusion, right knee; M79.604 Pain in right leg; M25.559 Pain in unspecified hip
CPT/HCPCS: 72170; 73560; 73565; 99212

== ENCOUNTER 2023-07-14 13:10 | Outpatient (AMB) | payer OTHER, SELFPAY ==
--- NOTE | 2023-07-14 13:12 | MHC.OFFVIS ---
Intake Intake Visit Reasons: Right leg pain and swellimg Intake Note: Mikal is a 33 year old male who presents today with complaints of right knee pain and swelling. Patient reports that he has had right knee pain for about 2 weeks now. Denies injury. Hx of 2 right knee surgeries. 1st was done at [facility] - ACL and meniscus, 2nd surgery done here at [facility] [place] [place] just meniscus arthroscopy. He has pain on the lateral aspect of the calf, pain increases with pronation of the foot. he is taking ibuprofen for the pain which does help. Allergies diphenhydramine Allergy (Intermediate, Verified 06/05/23 13:51) hives apple [APPLE] Allergy (Mild, Verified 06/05/23 13:51) NECK PAIN COUGH amoxicillin [AMOXICILLIN] Allergy (Unknown, Verified 06/05/23 13:51) HIVES azithromycin [From ZITHROMAX] Allergy (Unknown, Verified 06/05/23 13:51) COLITIS clindamycin [CLINDAMYCIN] Allergy (Unknown, Verified 06/05/23 13:51) GI PROBLEMS lactose [LACTOSE] Allergy (Unknown, Verified 06/05/23 13:51) GI SYMPTOMS, VOMITING, DIFF BREATHING levofloxacin [Levaquin] Allergy (Unknown, Verified 06/05/23 13:51) rash on hand naproxen [NAPROXEN] Allergy (Unknown, Verified 06/05/23 13:51) STOMACH UPSET penicillin V Allergy (Unknown, Verified 06/05/23 13:51) hives Penicillins [PENICILLINS] Allergy (Unknown, Verified 06/05/23 13:51) HIVES Sulfa (Sulfonamide Antibiotics) [SULFA (SULFONAMIDE ANTIBIOTICS)] Allergy (Unknown, Verified 06/05/23 13:51) HIVES aspirin Adverse Reaction (Unknown, Verified 06/05/23 13:51) upset stomach sertraline [Zoloft] Adverse Reaction (Unknown, Verified 06/05/23 13:51) SI thoughts all nsaids Allergy (Unknown, Uncoded 06/05/23 13:51) stomach upset Codeine Phosphate Allergy (Unknown, Uncoded 06/05/23 13:51) hives HPI Right leg pain and swellimg HPI Details Mikal is a 33 year old man who presents with complaints of right knee pain & swelling. He has pain with daily activity, along with swelling which worsens with pronation of his foot. His pain is localized primarily to the lateral aspect of his calf, and has been present for ~2 weeks. He finds some relief from NSAIDs and denies any other treatment. He was seen at [facility] urgent care for this, and an ultrasound of his right leg, done on 07/06/23, was negative for DVT. He has a hx of two prior right knee surgeries. A right ACL reconstruction & meniscus repair at [facility], and a second knee done at [facility]. [facility] Medical History Elevated BP without diagnosis of hypertension Surgical History History of tonsillectomy History of anterior cruciate ligament surgery History of knee surgery Family History Mother Hypertension Father Diabetes Hypertension High cholesterol Brother WPW (Emaip-Ydjyhlbwy-Dxiun syndrome) Social History (Updated 06/05/23 @ 13:55 by Maryann [facility]ivas [facility] Housing: Apartment Alcohol intake: current Alcohol intake frequency: does not drink Patient Tobacco Use Status: Former Tobacco user e-Cigarette/Vaping Use: Never Used Second Hand Smoke Exposure: No service: Yes Current occupational status: employed 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 Current occupational exposures/hazards: No Cognitive needs: No Hearing needs: No Vision needs: Yes Review of Systems Const All systems reviewed & are unremarkable except as noted in HPI and below Physical Exam Const General: no acute distress, alert and awake Orientation/consciousness: patient oriented x3 HEENT Head: Yes normocephalic and Yes atraumatic Eyes EOM: EOMs intact bilaterally Resp Effort & Inspection: normal respiratory effort and able to speak in complete sentences Cardio Jugular venous distension: no JVD Skin General skin exam: turgor normal Rashes: no rashes Neuro General: patient oriented x3 Extrem Other: His pain is anterior tibial and mild. There is no STS and his knee is not symptomatic. He has tight hamstrings and is well muscled. Psych Appearance: grossly normal Affect: normal affect Attitude: cooperative Results Reviewed Results Reviewed: I personally reviewed relevant radiographs nl pelvis and knee radiographs. s/p ACL recon knee Assessment & Plan Assessment & Plan (1) Leg pain, anterior: Code(s): M79.606 - Pain in leg, unspecified Plan: Anterior lower leg discomfort. We had a long discusion about muscle development and balancing extensors and flexors and core exercises. There in no acute treatment warranted. Plan Scribed for Shahbaz Roa MD by Bruce Cuellar, medical records assistant, on 07/14/23 at 1:40 PM, EST. Orders: Orders XR pelvis 1-2V 07/14/23 M25.559 - Pain in unspecified hip XR knee standing BI 07/14/23 M25.569 - Pain in unspecified knee XR knee RT 2V 07/14/23 M25.569 - Pain in unspecified knee Coding Level of Care Code Est Pt Level 3 (14640) Diagnoses Leg pain, anterior M79.606
== END 2023-07-14 13:53 | disposition home or self-care (01) ==
PROVIDERS: PCP Internal Medicine; Visit Provider Orthopaedic Surgery
DX: M79.606 Pain in leg, unspecified (principal)
CPT/HCPCS: 99213

== ENCOUNTER 2023-07-18 14:42 | Outpatient (REF) | payer OTHER, SELFPAY ==
--- NOTE | 2023-07-18 14:44 | EMG_ITS ---
Chief complaint: Bilateral hand numbness Reason for referral: Evaluate for Carpal Tunnel Syndrome Referred by: Jossy CURRY Procedure done: Bilateral upper extremities NCS/EMG Precautions and/or limitations: None The limb temperature was monitored continuously and remained between 32-36 degrees C during the performance of the NCS. Nerve Conduction Studies Anti Sensory Summary Table ?Stim Site NR Onset (ms) Norm Onset (ms) Peak (ms) Norm Peak (ms) O-P Amp (?V) Norm O-P Amp Site1 Site2 Delta-0 (ms) Dist (cm) Brad (m/s) Norm Brad (m/s) Left Median Anti Sensory (2nd Digit) Wrist ? 2.4 3.0 <3.6 50.1 >10 Wrist 2nd Digit 2.4 14.0 58 Right Median Anti Sensory (2nd Digit) Wrist ? 2.4 3.0 <3.6 38.6 >10 Wrist 2nd Digit 2.4 14.0 58 Left Ulnar Anti Sensory (5th Digit) Wrist ? 2.2 2.7 <3.7 36.5 >15.0 Wrist 5th Digit 2.2 14.0 64 Right Ulnar Anti Sensory (5th Digit) Wrist ? 2.3 2.8 <3.7 31.4 >15.0 Wrist 5th Digit 2.3 14.0 61 Motor Summary Table ?Stim Site NR Onset (ms) Norm Onset (ms) O-P Amp (mV) Norm O-P Amp iAmp (mV) Amp (1st) (%) Site1 Site2 Delta-0 (ms) Dist (cm) Brad (m/s) Norm Brad (m/s) Left Median Motor (Abd Poll Brev) Wrist ? 3.3 <3.9 12.0 >4.5 14.5 100.0 Elbow Wrist 3.8 22.0 58 >45 Elbow ? 7.1 10.8 13.2 90.0 Right Median Motor (Abd Poll Brev) Wrist ? 3.1 <3.9 14.9 >4.5 17.8 100.0 Elbow Wrist 4.0 22.0 55 >45 Elbow ? 7.1 12.0 14.2 80.5 Left Ulnar Motor (Abd Dig Minimi) Wrist ? 2.6 <3.0 11.4 >5 14.0 100.0 B Elbow Wrist 3.3 20.0 61 >45 B Elbow ? 5.9 11.1 13.8 97.4 A Elbow B Elbow 1.0 10.0 100 >45 A Elbow ? 6.9 11.1 13.8 97.4 Right Ulnar Motor (Abd Dig Minimi) Wrist ? 2.5 <3.0 9.8 >5 13.3 100.0 B Elbow Wrist 3.2 20.0 63 >45 B Elbow ? 5.7 9.9 13.2 101.0 A Elbow B Elbow 1.2 10.0 83 >45 A Elbow ? 6.9 9.4 12.1 95.9 Comparison Summary Table ?Stim Site NR Peak (ms) Norm Peak (ms) P-T Amp (?V) Site1 Site2 Delta-P (ms) Norm Delta (ms) Right Median/Radial Dig I Comparison (Digit 1 - 10cm) Median ? 2.5 <2.9 53.7 Median Radial 0.1 Radial ? 2.4 <2.8 16.3 EMG ?Side Muscle Nerve Root Ins Act Fibs Psw Amp Dur Poly Recrt Int Pat Comment Right 1stDorInt Ulnar C8-T1 Nml Nml Nml Nml Nml 0 Nml Complete Right FlexCarRad Median C6-7 Nml Nml Nml Nml Nml 0 Nml Complete Right Biceps Musculocut C5-6 Nml Nml Nml Nml Nml 0 Nml Complete Right Triceps Radial C6-7-8 Nml Nml Nml Nml Nml 0 Nml Complete Right Deltoid Axillary C5-6 Nml Nml Nml Nml Nml 0 Nml Complete Left 1stDorInt Ulnar C8-T1 Nml Nml Nml Nml Nml 0 Nml Complete Left FlexCarRad Median C6-7 Nml Nml Nml Nml Nml 0 Nml Complete Left Biceps Musculocut C5-6 Nml Nml Nml Nml Nml 0 Nml Complete Left Triceps Radial C6-7-8 Nml Nml Nml Nml Nml 0 Nml Complete Left Deltoid Axillary C5-6 Nml Nml Nml Nml Nml 0 Nml Complete FINDINGS: All motor and sensory nerves tested showed normal latencies, amplitudes and conduction velocities. Concentric needle EMG was performed in selected muscles of the bilateral upper extremities. Study did not reveal signs of electric abnormalities as shown in the table below. IMPRESSION: 1. This is a normal study. 2. There is no electrodiagnostic evidence for median neuropathy, ulnar neuropathy, brachial plexopathy, or cervical radiculopathy. Thank you for your kind referral. Rosalva Sommer MD, ADENIKE Board Certified, [place] [employer] and Rehabilitation (ABPMR) Board Certified, [place] Board of Electrodiagnostic Medicine (ABEM) CODIN 05404 x 2 MTDD
== END 2023-07-18 14:43 | disposition home or self-care (01) ==
LOC: HO.NEURO 14:42
PROVIDERS: PCP Internal Medicine; Visit Provider Physician Assistant
DX: R20.0 Anesthesia of skin (principal); R20.2 Paresthesia of skin
CPT/HCPCS: 95886; 95911

== ENCOUNTER → 2023-07-18 14:44 | Outpatient (BNV) | payer OTHER, SELFPAY | PROVIDERS: PCP Internal Medicine; Visit Provider Physical Medicine & Rehabilitation | DX: R20.0 Anesthesia of skin (principal); M79.641 Pain in right hand; M79.642 Pain in left hand | CPT/HCPCS: 95886; 95911 ==

== ENCOUNTER 2023-08-04 14:52 | Outpatient (AMB) | payer OTHER, SELFPAY ==
--- NOTE | 2023-08-04 15:02 | MHC.OFFVIS ---
Intake Vital Signs 08/04/23 15:10 Height 5 ft 10 in Weight 220 lb BMI 31.6 BP 151/69 H Blood Pressure Location Lt brachial Position Sitting Pulse 83 Intake Visit Reasons: Unspecified Abdominal Pain Intake Note: Patient new consult for abdominal pain. Patient cc: abdominal pain with bloating, IBS symptoms. Control Room Tender Required: No Accompanied by: Self / Same As Patient Allergies diphenhydramine Allergy (Intermediate, Verified 08/04/23 15:04) hives apple [APPLE] Allergy (Mild, Verified 08/04/23 15:04) NECK PAIN COUGH amoxicillin [AMOXICILLIN] Allergy (Unknown, Verified 08/04/23 15:04) HIVES azithromycin [From ZITHROMAX] Allergy (Unknown, Verified 08/04/23 15:04) COLITIS clindamycin [CLINDAMYCIN] Allergy (Unknown, Verified 08/04/23 15:04) GI PROBLEMS lactose [LACTOSE] Allergy (Unknown, Verified 08/04/23 15:04) GI SYMPTOMS, VOMITING, DIFF BREATHING levofloxacin [Levaquin] Allergy (Unknown, Verified 08/04/23 15:04) rash on hand naproxen [NAPROXEN] Allergy (Unknown, Verified 08/04/23 15:04) STOMACH UPSET penicillin V Allergy (Unknown, Verified 08/04/23 15:04) hives Penicillins [PENICILLINS] Allergy (Unknown, Verified 08/04/23 15:04) HIVES Sulfa (Sulfonamide Antibiotics) [SULFA (SULFONAMIDE ANTIBIOTICS)] Allergy (Unknown, Verified 08/04/23 15:04) HIVES aspirin Adverse Reaction (Unknown, Verified 08/04/23 15:04) upset stomach sertraline [Zoloft] Adverse Reaction (Unknown, Verified 08/04/23 15:04) SI thoughts all nsaids Allergy (Unknown, Uncoded 06/05/23 13:51) stomach upset Codeine Phosphate Allergy (Unknown, Uncoded 06/05/23 13:51) hives HPI Unspecified Abdominal Pain HPI Details 33-year-old male with past medical history of allergic rhinitis, cardiac murmur, obesity, multiple seasonal allergies is here today for initial consultation. Patient reports that he has been dealing with on and off postprandial epigastric discomfort with abdominal bloating. On and off constipation and diarrhea. Patient reports dyspepsia without dysphagia or odynophagia. Reports abdominal pain and cramping not always related to meals. Patient denies any melena, hematochezia, unintentional weight loss or ribbon like stools. Patient admits that he is allergic to lactose. Multiple allergies that include medications and environmental allergies. Patient denies any abdominal surgeries. Denies any nausea or vomiting. 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 Current occupational exposures/hazards: No Cognitive needs: No Hearing needs: No Vision needs: Yes Review of Systems Const Denies weight gain and Denies weight loss ENT Reports no additional complaints, Denies dysphagia and Denies odynophagia Card Reports no additional complaints Resp Reports no additional complaints GI Reports abdominal pain, Denies belching, Denies melena, Denies bloating, Reports constipation, Denies dysphagia, Denies excessive flatus, Reports dyspepsia, Reports heartburn, Denies diarrhea, Reports loose stools, Denies nausea, Denies odynophagia and Denies vomiting Reports no additional complaints Musc Reports no additional complaints Neuro Reports no additional complaints Psych Reports no additional complaints Endo Reports no additional complaints Physical Exam Vital Signs: Last Vital Signs Pulse 83 08/04/23 15:10 BP 151/69 H 08/04/23 15:10 BMI result Body Mass Index 31.6 Const General: healthy appearing, no acute distress and well developed Nutritional Appearance: well nourished Orientation/consciousness: patient oriented x3 Resp Effort & Inspection: normal respiratory effort, able to speak in complete sentences, no tracheal deviation and symmetric chest movement Auscultation: clear to auscultation bilaterally Cardio Rate: regular rate GI Inspection: Yes normal to inspection and No distended Palpation (GI): Soft to palpation, not firm, nontender and No hepatosplenomegaly present Auscultation: normal bowel sounds General: Yes no CVA tenderness Back/Spine/Pelvis Back: no CVA tenderness Skin General skin exam: elasticity normal, turgor normal and dry skin Neuro General: patient oriented x3 Psych Appearance: grossly normal Mental Status: mental status grossly normal Assessment & Plan Assessment & Plan (1) GERD (gastroesophageal reflux disease): Code(s): K21.9 - Gastro-esophageal reflux disease without esophagitis Qualifiers: Esophagitis presence: esophagitis presence not specified Qualified Code(s): K21.9 - Gastro-esophageal reflux disease without esophagitis (2) Postprandial epigastric pain: Code(s): R10.13 - Epigastric pain (3) Abdominal bloating: Code(s): R14.0 - Abdominal distension (gaseous) (4) Postprandial diarrhea: Code(s): K52.9 - Noninfective gastroenteritis and colitis, unspecified (5) Constipation: Code(s): K59.00 - Constipation, unspecified Qualifiers: Constipation type: slow transit constipation Qualified Code(s): K59.01 - Slow transit constipation Plan Will check thyroid study, vitamin B12 and folate, vitamin-D level. Will rule out IBD check CRP fecal calprotectin. Rule out celiac, pancreatic insufficiency and H pylori. Discussed with patient avoiding dietary triggers and late night snacking. Staying upright for minimal 3 hours after meals discussed with patient. Patient continue taking omeprazole daily. Low FODMAP diet discussed with patient. List of food recommended as well as list of food to avoid given to patient. Will start patient on fiber to help him bulk stool and senna to help him eliminate his bowels. Patient was encouraged to increase fluid intake and activity to promote better bowel motility. Patient will return in our office in 5 weeks, sooner on as needed basis. Patient is agreeable to this plan and verbalizes understanding of instructions. He was given the opportunity to ask questions and all questions answered. Thank you for allowing me to participate in his care Orders: Orders TSH reflex Free T4 08/04/23 K59.00 - Constipation, unspecified Vitamin B12 and Folate 08/04/23 R19.7 - Diarrhea, unspecified H pylori Ag Stool 08/04/23 K21.9 - Gastro-esophageal reflux disease without esophagitis Pancreatic Elastase-1 08/04/23 R10.9 - Unspecified abdominal pain Transglutaminase Ab IgG 08/04/23 R10.9 - Unspecified abdominal pain Transglutaminase IgA 08/04/23 R10.9 - Unspecified abdominal pain Vitamin D 25-OH (D2 and D3) 08/04/23 E55.9 - Vitamin D deficiency, unspecified C Reactive Protein 08/04/23 K58.9 - Irritable bowel syndrome without diarrhea Calprotectin, Fecal 08/04/23 R15.9 - Full incontinence of feces Rast Allergen 08/04/23 K21.9 - Gastro-esophageal reflux disease without esophagitis Medications: New methylcellulose (laxative) (Citrucel) 500 mg PO DAILY 30 tabs 2RF K59.00 - Constipation, unspecified sennosides (Natural Senna Laxative) 17.2 mg (2 x 8.6 mg) PO BEDTIME 60 tabs 1RF constipation K59.00 - Constipation, unspecified Coding Level of Care Code New Pt Level 4 (95763) Diagnoses Gastroesophageal reflux disease, unspecified whether esophagitis present K21.9 Esophagitis presence: esophagitis presence not specified Postprandial epigastric pain R10.13 Abdominal bloating R14.0 Postprandial diarrhea K52.9 Slow transit constipation K59.01 Constipation type: slow transit constipation Time Spent (min) 45 Comment 30 minutes spent with patient and additional 15 minutes spent reviewing his records
[2023-08-04 15:10] VITALS: BP 151/69; PULSE 83; BMI 31.6
== END 2023-08-04 15:38 | disposition home or self-care (01) ==
PROVIDERS: PCP Internal Medicine; Visit Provider Nurse Practitioner Family
DX: K21.9 Gastro-esophageal reflux disease without esophagitis (principal); R10.13 Epigastric pain; R14.0 Abdominal distension (gaseous); K52.9 Noninfective gastroenteritis and colitis, unspecified; K59.01 Slow transit constipation
CPT/HCPCS: 99204

== ENCOUNTER 2023-08-04 14:52 | Outpatient (REF) | payer OTHER, SELFPAY ==
[2023-08-04 17:45] LABS: C Reactive Protein 0.32 mg/dL (< or = 0.50)
[2023-08-04 18:04] LABS: TSH reflex Free T4 0.95 uIU/mL (0.32-4.0)
[2023-08-04 18:20] LABS: Folate 7.3 ng/mL (> or = 4.0); Vitamin B12 509 pg/mL (200-900)
[2023-08-06 14:44] LABS: Transglutaminase Ab IgG <1.0 U/mL; Transglutaminase IgA <1.0 U/mL
[2023-08-09 14:58] LABS: Vitamin D 25-OH, D2 <4 ng/mL; Vitamin D 25-OH, D3 15 ng/mL; Vitamin D 25-OH, Total 15 ng/mL (30-100)
== END 2023-08-04 14:53 | disposition home or self-care (01) ==
LOC: HO.LAB 14:52
PROVIDERS: PCP Internal Medicine; Visit Provider Nurse Practitioner Family
DX: K52.9 Noninfective gastroenteritis and colitis, unspecified (principal); K21.9 Gastro-esophageal reflux disease without esophagitis; K59.01 Slow transit constipation; R10.13 Epigastric pain; R14.0 Abdominal distension (gaseous); E55.9 Vitamin D deficiency, unspecified
CPT/HCPCS: 36415; 82306; 82607; 82746; 84443; 86003; 86140; 86364; 99202

== ENCOUNTER 2024-03-09 13:24 | Outpatient (AMB) | payer OTHER, SELFPAY ==
[2024-03-09 13:30] VITALS: BP 142/82; PULSE 77; O2SAT 97; BMI 30.8
--- NOTE | 2024-03-09 13:30 | A.OFFPC_ITS ---
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 Accompanied by: Self / Same As Patient Allergies diphenhydramine Allergy (Intermediate, Verified 03/09/24 13:32) hives apple [APPLE] Allergy (Mild, Verified 03/09/24 13:32) NECK PAIN COUGH amoxicillin [AMOXICILLIN] Allergy (Unknown, Verified 03/09/24 13:32) HIVES azithromycin [From ZITHROMAX] Allergy (Unknown, Verified 03/09/24 13:32) COLITIS clindamycin [CLINDAMYCIN] Allergy (Unknown, Verified 03/09/24 13:32) GI PROBLEMS lactose [LACTOSE] Allergy (Unknown, Verified 03/09/24 13:32) GI SYMPTOMS, VOMITING, DIFF BREATHING levofloxacin [Levaquin] Allergy (Unknown, Verified 03/09/24 13:32) rash on hand naproxen [NAPROXEN] Allergy (Unknown, Verified 03/09/24 13:32) STOMACH UPSET penicillin V Allergy (Unknown, Verified 03/09/24 13:32) hives Penicillins [PENICILLINS] Allergy (Unknown, Verified 03/09/24 13:32) HIVES Sulfa (Sulfonamide Antibiotics) [SULFA (SULFONAMIDE ANTIBIOTICS)] Allergy (Unknown, Verified 03/09/24 13:32) HIVES aspirin Adverse Reaction (Unknown, Verified 03/09/24 13:32) upset stomach sertraline [Zoloft] Adverse Reaction (Unknown, Verified 03/09/24 13:32) SI thoughts all nsaids Allergy (Unknown, Uncoded 03/09/24 13:32) stomach upset Codeine Phosphate Allergy (Unknown, Uncoded 03/09/24 13:32) hives Medication List - Last Reconciled 03/09/24 by Norris Villasenor MD cholecalciferol (vitamin D3) 50 mcg PO DAILY methylcellulose (laxative) (Citrucel) 500 mg PO DAILY omeprazole 20 mg PO DAILY sennosides (Natural Senna Laxative) 17.2 mg (2 x 8.6 mg) PO BEDTIME Tobacco use date assessed: 02/27/23 Dental Screening Dental Screen Date: 06/02/23 HPI [facility] 03/08 RT hand infection HPI Details seen in er 2 days ago with an infected abrasion left hand with lymphahangitis; given rx and improving PFSH Medical History Elevated BP without diagnosis of hypertension Surgical History History of tonsillectomy History of anterior cruciate ligament surgery History of knee surgery Family History Mother Hypertension Father Diabetes Hypertension High cholesterol Brother WPW (Mrvnv-Psuxotmdc-Aoxxu syndrome) Social History Housing: Apartment Alcohol intake: current Alcohol intake frequency: does not drink Patient Tobacco Use Status: Former Tobacco user e-Cigarette/Vaping Use: Never Used Second Hand Smoke Exposure: No service: Yes Current occupational status: employed 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 1. Little interest or pleasure in doing things: not at all 2. Feeling down, depressed, or hopeless: not at all 3. Trouble falling or staying asleep, or sleeping too much: not at all 4. Feeling tired or having little energy: not at all 5. Poor appetite or overeating: not at all 6. Feeling bad about yourself - or that you are a failure or have let yourself or your family down: not at all 7. Trouble concentrating on things, such as reading the newspaper or watching television: not at all 8. Moving or speaking so slowly that other people could have noticed. Or the op posite - being so fidgety or restless that you have been moving around a lot more than usual: not at all 9. Thoughts that you would be better off or of hurting yourself in some way: not at all Total score: 0 Depression Screening Interpretation: Negative Depression Screening Done: Yes 33782 - PHQ-9 Billing: Yes Source: Developed by Drs. Cuate Luna, La Nena Aman Steven and colleagues, with an educational priscila from [email or web address]. Thrive Questionnaire Date Thrive assessed: 03/09/24 I am a: Patient What is your living situation today?: I have a steady place to live THRIVE Score: 0 SUDARSHAN-7 AMB Questionnaire SUDARSHAN-7 Date SUDARSHAN - 7 assessed: 03/09/24 Feeling nervous, anxious, or on edge: 0 = Not at all Not being able to stop or control worryin = Not at all Worrying too much about different things: 0 = Not at all Trouble relaxin = Not at all Being so restless that it is hard to sit still: 0 = Not at all Becoming easily annoyed or irritable: 0 = Not at all Feeling afraid as if something awful might happen: 0 = Not at all Total SUDARSHAN-7 score (0-4 normal; 5-9 mild; 10-14 moderate; 15-21 severe): 0 Source: Developed by Drs. Cuate Luna, Aman Bernabe and colleagues, with an educational priscila from [email or web address]. Review of Systems Const Denies chills, Denies headache(s) and Denies weight loss ENT Denies headache(s) Card Denies chest pain, Denies syncope, Denies irregular heart rhythm and Denies dyspnea Resp Denies chest congestion, Denies cough and Denies dyspnea GI Denies abdominal pain, Denies change in stool character, Denies nausea and Denies vomiting Musc Denies deformity and Denies joint swelling Neuro Denies syncope and Denies headache(s) Physical exam (Primary Care) Vital Signs: Last Vital Signs Pulse 77 03/09/24 13:30 BP 142/82 H 03/09/24 13:30 Pulse Ox 97 03/09/24 13:30 Oxygen Delivery Method Room Air 03/09/24 13:30 BMI result Body Mass Index 30.8 Tobacco/Smoking Status: Tobacco use Status Tobacco use date assessed 02/27/23 03/09/24 13:35 Patient Tobacco Use Status Former Tobacco user 03/09/24 13:35 e-Cigarette/Vaping Use Never Used 03/09/24 13:35 PHQ-9: PHQ-9 Score PHQ-9: Total score 0 03/09/24 13:35 Depression Screening Interpretation: Negative Thrive Assessment: Date of Thrive Assessment Date Thrive assessed 03/09/24 03/09/24 13:35 Const General: cooperative, comfortable, no acute distress and alert Neck Neck: Yes no lymphadenopathy Thyroid: Thyroid normal Resp Effort & Inspection: normal respiratory effort Auscultation: clear to auscultation bilaterally Percussion: percussion normal Cardio Jugular venous distension: no JVD Palpation: normal PMI Rate: regular rate Rhythm: regular rhythm Heart sounds: S1 normal heart sound present and S2 normal heart sound present GI Inspection: Yes normal to inspection Palpation (GI): No hepatosplenomegaly present Skin Other: abrasion right hypothenar em and not infected at present Extrem General: Yes no clubbing, cyanosis or edema Assessment and Plan Assessment & Plan (1) Hand abrasion, infected: Code(s): S60.519A - Abrasion of unspecified hand, initial encounter; L08.9 - Local infection of the skin and subcutaneous tissue, unspecified Plan: cont current rx Medications: Refilled omeprazole 20 mg PO DAILY 90 tabs 8RF Coding Level of Care Code Est Pt Level 3 (41087) Diagnoses Hand abrasion, infected S60.519A; L08.9
== END 2024-03-09 13:48 | disposition home or self-care (01) ==
PROVIDERS: PCP Internal Medicine; Visit Provider Internal Medicine
DX: S60.512A Abrasion of left hand, initial encounter (principal); L08.9 Local infection of the skin and subcutaneous tissue, unspecified
CPT/HCPCS: 99213

== ENCOUNTER 2024-08-19 12:44 | Outpatient (AMB) | payer OTHER, SELFPAY ==
[2024-08-19 12:48] VITALS: BMI 30.8
--- NOTE | 2024-08-19 12:48 | MHC.OFFVIS ---
Vital Signs 08/19/24 12:48 Height 5 ft 10 in Weight 215 lb BMI 30.8 Intake Visit Reasons: OV-R knee pain Intake Note: Mikal is a 34 year old male who presents today for a follow up of his right knee pain. He has a hx of two prior right knee surgeries. A right ACL reconstruction & meniscus repair at [facility], and a second knee done at [place]. He was last seen in June of 2023 where we discussed muscle development and balancing extensors and flexors and core exercises. Patient reports that he is having pain all the time, worse with exercises and prolonged walking and standing. He is interested in bracing. Allergies diphenhydramine Allergy (Intermediate, Verified 08/19/24 12:50) hives apple [APPLE] Allergy (Mild, Verified 08/19/24 12:50) NECK PAIN COUGH amoxicillin [AMOXICILLIN] Allergy (Unknown, Verified 08/19/24 12:50) HIVES azithromycin [From ZITHROMAX] Allergy (Unknown, Verified 08/19/24 12:50) COLITIS clindamycin [CLINDAMYCIN] Allergy (Unknown, Verified 08/19/24 12:50) GI PROBLEMS lactose [LACTOSE] Allergy (Unknown, Verified 08/19/24 12:50) GI SYMPTOMS, VOMITING, DIFF BREATHING levofloxacin [Levaquin] Allergy (Unknown, Verified 08/19/24 12:50) rash on hand naproxen [NAPROXEN] Allergy (Unknown, Verified 08/19/24 12:50) STOMACH UPSET penicillin V Allergy (Unknown, Verified 08/19/24 12:50) hives Penicillins [PENICILLINS] Allergy (Unknown, Verified 08/19/24 12:50) HIVES Sulfa (Sulfonamide Antibiotics) [SULFA (SULFONAMIDE ANTIBIOTICS)] Allergy (Unknown, Verified 08/19/24 12:50) HIVES aspirin Adverse Reaction (Unknown, Verified 08/19/24 12:50) upset stomach sertraline [Zoloft] Adverse Reaction (Unknown, Verified 08/19/24 12:50) SI thoughts all nsaids Allergy (Unknown, Uncoded 08/19/24 12:50) stomach upset Codeine Phosphate Allergy (Unknown, Uncoded 08/19/24 12:50) hives HPI HPI OV-R knee pain: Details: And he returns today to follow up. He is a 34-year-old who is status post ACL reconstruction with medial meniscus repair at an outside institution who came to see me in 2016 and I did a knee arthroscopy in which I removed some anchors from his medial meniscus and a partial medial meniscectomy. At that time he had medial compartment away. He returns today feeling like it has worsened. He has pain in the medial aspect of his right knee. He works every day and plays competitive baseball during the summer months. Ever since the last baseball season he has been suffering and pain he does not like to take medication. He went to the [facility] and they told him he needed a knee replacement. 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 0-130 degrees of motion. Mild gait antalgia. Office Procedures Joint Inj/Aspir; Non-Pain Clin Joint Injection/Drain Details: Injected 1 mL of Decadron and 3 mL 1% lidocaine and 3 mL of 0.25% Marcaine. Site was prepped using aseptic technique. Patient tolerated the procedure well. Shoulders, Hips, Knees, Knee Large Joint Injection : Right Knee Coding Procedure code (CPT) selection complete Results Reviewed Results Reviewed: I personally reviewed relevant radiographs. Moderate loss of joint space medially with osteoarthritic changes. Status post ACL reconstruction as well. Assessment & Plan Assessment & Plan (1) Localized osteoarthritis of right knee: Code(s): M17.11 - Unilateral primary osteoarthritis, right knee Category: Medical Plan: This is a 34 yo with medial compartment OA. I recommend an unloading brace and I injected his right knee. 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
--- OUTSIDE RECORDS SUMMARY | 2024-08-19 15:02 | XMS_ITS ---
Author Name [facility] Organization [facility] Address [address] [place] [id number] Care Team Providers Care Sugar Sampler Name Role Phone MANNY FREEMAN Primary Care Provider Unavailabl e Selected Encounter This section includes the information on record at [place] for the Encounter. Date/Time Encounter Type Encounter Description Reason Pro vider Source Aug 17, 2024 01:44 PM Outpatient Encounter PRIMARY CARE/MEDICINE IHE Encounter Template Text not used by [place] Plan of Treatment: Future Appointments (+ 6 months) and Future Tests (+/- 45 days) The Plan of Treatment section includes future care activities for the patient from all [place] treatmentfacilities. This section includes future appointments and future orders which are active, pending or scheduled. Future Appointments This section includes appointments that were scheduled to occur 6 months from the date of the Encounter, up to a maximum of 20 appointments. The data comes from all [place] treatment facilities. Appointment Date/Time Appointment Type Appointme nt Facility Name Aug 19, 2024 12:45 PM AMBULATORY - MEDICINE [facility] Encounter Notes: All associated encounter notes This section contains the clinical notes associated to the Encounter. Date/Time Encounter Note(s) Provider Source Aug 17, 2024 01:44 PM PRIMARY CARE TELEP DANNI ENCOUNTER NOTE: LOCAL TITLE: TELEPHONE NOTE/PRIMARY CARE STANDARD TITLE: PRIMARY CARE TELEPHONE ENCOUNTER NOTE DATE OF NOTE: AUG 17, 2024@13:44 ENTRY DATE: AUG 17, 2024@13:44:55 AUTHOR: BUNNY BERANRD EXP COSIGNER: URGENCY: STATUS: COMPLETED TELEPHONE NOTE/PRIMARY CARE Has ADDENDA Oreana called directly into [facility] Acupuncture/Chiropractic line asking for an appointment. [facility] noting that does not have an active consult/referral in place. asking for assistance with his injuries for neck, back, shoulders and hips. asking for both Acupuncture and infant childcare provider. Please review and advise. Oreana can be reached at confirmed phone number in system. /clay/ BUNNY LAMAR Signed: 08/17/2024 13:46 Receipt Acknowledged By: 08/18/2024 16:21 /clay/ MARIA LUZ COLE RN REGISTERED NURSE 08/19/2024 08:02 /clay/ ELLE ALLEN LPN PACT 10 08/18/2024 ADDENDUM STATUS: COMPLETED Spoke with the and advised that we cannot refer to these specialist for chronic long-term conditions. Oreana stated he is unsure what to do. Oreana was asked if he has spoken with his non-[facility] PCP about this. stated he can no longer see that provider due to no longer having insurance and [facility]. was made aware that medical records would be needed and reviewed before proceeding forward with a treatment plan. Oreana will obtain records. /clay/ MARIA LUZ COLE RN REGISTERED NURSE Signed: 08/18/2024 16:25 BUNNY BERNARD
--- OUTSIDE RECORDS SUMMARY | 2024-08-19 15:02 | XMS_ITS | Encounter Summary ---
Author Name [facility] Organization [facility] Address [address] [place] [id number] Care Team Providers Care Qa Reviewer Name Role Phone MANNY FREEMAN Primary Care Provider Unavailabl e Selected Encounter This section includes the information on record at [place] for the Encounter. Date/Time Encounter Type Encounter Description Reason Provider Source Apr 16, 2024 11:00 AM OFFICE O/P NEW LOW 30 MIN PRIMARY CARE/MEDICINE ICD-10-CM K21.9 Gastro-esophageal reflux disease without esophagitis MANNY FREEMAN Encounter Template Text not used by [place] Assessments - Encounter Diagnoses This section includes the primary and secondary diagnoses documented for the Encounter. Date/Time Primary/Secondary Diagnosis Diagnosis Name Provider Source Apr 16, 2024 11:46 AM PRIMARY Gastro-esophageal reflux disease without esophagitis MANNY FREEMAN Apr 16, 2024 11:46 AM SECONDARY Obesity, unspecified MANNY FREEMAN Plan of Treatment: Future Appointments (+ 6 months) and Future Tests (+/- 45 days) The Plan of Treatment section includes future care activities for the patient from all [place] treatmentfacilities. This section includes future appointments and future orders which are active, pending or scheduled. Future Appointments This section includes appointments that were scheduled to occur 6 months from the date of the Encounter, up to a maximum of 20 appointments. The data comes from all [place] treatment facilities. Appointment Date/Time Appointment Type Appointme nt Facility Name Aug 19, 2024 12:45 PM AMBULATORY - [facility]ICINE [facility] Social History: Smoking Status (Most current) and Tobacco Use (All prior to encounter date) This section includes the most current, and the historical, smoking and tobacco- related health factors from the [facility] facility where the Encounter took place. Current Smoking Status This section includes the most current smoking, or tobacco-related health factor, from the [place] facility where the Encounter took place. Date/Time Current Smoking Status Comment Vishal ity Apr 16, 2024 11:00 AM VA-TOBACCO FORMER USER [facility] Tobacco Use History This section includes a history of the smoking, or tobacco-related health factors, that were collected on or before the date of the Encounter. The data comes from the [place] facility where the Encounter took place. Date/Time Smoking Status/Tobacco Use Comment F acility Apr 16, 2024 11:00 AM VA-TOBACCO QUIT 5 TO < 15 YRS [facility] Encounter Notes: All associated encounter notes This section contains the clinical notes associated to the Encounter. Date/Time Encounter Note(s) Provider Source Apr 16, 2024 11:27 AM PHYSICIAN NOTE: LOCAL TITLE: MD NOTE STANDARD TITLE: PHYSICIAN NOTE DATE OF NOTE: APR 16, 2024@11:27 ENTRY DATE: APR 16, 2024@11:27:23 AUTHOR: MANNY FREEMAN EXP COSIGNER: URGENCY: STATUS: COMPLETED HISTORY OF PRESENT ILLNESS: ADAM BEST is a 33 yo MALE who presents at the [facility] as a new pt visit. No prior medical records available. New pt packet filled out. He maintains a nonVA PCP: Dr Norris Villasenor at [facility] in [place]. NonVA Providers: PCP: Dr Villasenor Orthopedics: Dr Roa Gastroenterology: Dr Preeti Humphries Active problems - Computerized Problem List is the source for the followin. Gastroesophageal reflux disease 2. NonVA Providers 3. Exsmoker Active and Recently Outpatient Medications (including Supplies): Active Non-VA Medications Status ======= 1) Non-VA ALBUTEROL 90MCG (CFC-F) 200D ORAL INHL 2 PUFFS ACTIVE BY MOUTH EVERY 4 HOURS NEEDED 2) Non-VA DICYCLOMINE HCL 10MG CAP 10MG BY MOUTH ONCE ACTIVE DAILY 3) Non-VA OMEPRAZOLE 20MG EC CAP 20MG BY MOUTH EVERY ACTIVE MORNING 30 MINUTES BEFORE BREAKFAST ALLERGIES: ========= DIPHENHYDRAMINE, APPLES, AMOXICILLIN, AZITHROMYCIN, CLINDAMYCIN, LACTOSE LEVOFLOXACIN, NAPROXEN, PENICILLIN, SULFA DRUGS, ASPIRIN RELATED MEDICATIONS SERTRALINE, NONSTEROIDAL ANTI-INFLAMMATORY, CODEINE PHOSPHATE SURGICAL HISTORY: 2006 - s/p appendectomy 2016 - s/p meniscus repair s/p ACL repair s/p cyst removal from testicle FAMILY HISTORY: Mother: age 59, HTN Father: age 59, DM, HTN, high cholesterol PGM: pancreatic CA 2 brothers: ages 33 & 37 SOCIAL HISTORY: Single, son age 15, exsmoker (quit 2018 - smoked 10 yrs), 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[place] [facility], born and raised in [place], got his GED, currently doing online courses at [employer] HISTORY: PERIOD OF SERVICE - OTHER OR NONE UNKNOWN COMBAT SERVICE INDICATED: No VITAL SIGNS: Blood Pressure 138/84 (04/16/2024 11:24) Pulse 62 (04/16/2024 11:24) Respiration 16 (04/16/2024 11:24) Pulse Oximetry 99% (04/16/2024 11:24) Temperature 98.7 F [37.1 C] (04/16/2024 11:24) Pain 0 (04/16/2024 11:24) Height 70 in [177.8 cm] (04/16/2024 11:24) Weight 217.6 lb [98.70 kg] (04/16/2024 11:24) BMI BMI: 31.3 REVIEW OF SYSTEMS: ENT: No sore throat, no cough CARDIOVASCULAR: No chest pain, no palpitations RESPIRATORY: No SOB, no wheezing GASTROINTESTINAL: No abd pain, no N/V/D MUSCULOSKELETAL: No joint pain NEUROLOGIC: No H/A, no numbness, no weakness EXAMINATION: GENERAL: WD/WN in NAD HEENT: Moist mucosa NECK: Supple HEART: RRR, S1-S2, no murmurs LUNGS: CTA B/L ABDOMEN: Soft, NT/ND EXTREMITIES: FROM x 4, no edema NEUROLOGIC: AAO x3, no focal findings PSYCHIATRIC: Good eye contact, affect normal ASSESSMENT/PLAN: 1. Obesity: BMI ~31, advised wt loss 2. GERD: on omeprazole 20mg/day, suggested dietary modifications and to trial H2 roe instead due to profile risks of long-term use of PPI's 3. IBS: on dicyclomine 10mg/day 4. Exercise Induced Asthma: on albuterol prn 5. Multiple Joint Pain: suggested turmeric, glucosamine chondroitin, tylenol arthritis, keep well hydrated FOLLOW UP: 1 year - Annual ========= No barriers; Patient understands and agrees to current treatment plan. If pt has any questions, concerns, or changes in current health status he/she will call or come in to the VA. BMI>30/>24.99 High Risk: Patient declines to discuss weight management. Patient declined weight discussion. Discussed revisiting at a future visit. Hepatitis C Testing: Patient declines HCV lab test. HIV Screening: Patient has been offered HIV testing and has declined. I have explained that HIV testing is recommended for all adults, even if all risk factors are absent. The patient was educated on the risk of delayed screening. Medication Reconciliation: Outpatient: Has the patient been taking medications as documented in the EMLR? YES: The patient has been taking medications as documented in the EMLR. Essential Medication List for Review used to complete this medication reconciliation. INCLUDED IN THIS LIST: Alphabetical list of active outpatient prescriptions dispensed from this [facility] (local) and dispensed from another [place] or [facility] facility (remote) as well as inpatient orders (local, pending and active), local clinic medications, locally documented non-VA medications, and local prescriptions that have or been discontinued in the past 90 days. - All changes in medications, including all non-VA/Herbal/OTC medications were entered into CPRS. - If there were any medications the patient should no longer take, they were discontinued. - The patient/caregiver was instructed to update this list, discard old lists, and take this list to the next appointment, whether with a VA or non-VA provider. JLV Link Data on this list may not be complete. Please check JLV. Allergies/ADRs (Tool #5) FACILITY ALLERGY/ADR -------- CLNCL/[facility]TH [facility] REPT EFF [id number] PENICILLINS CLNCL/[facility]TH [facility] REPT EFF [id number] SULFA DRUGS [facility] AMOXICILLIN [facility] APPLES [facility] ASPIRIN RELATED MEDICATIONS [facility] AZITHROMYC[facility] CLINDAMYC[facility] CODEINE [facility]OSPH[facility]AM[facility] LACTOSE [facility] LEVOFLOXACIN [facility] NAPROXEN [facility] NONSTEROIDAL ANTI-INFLAMMATORY [facility] PENICILLIN [facility] SERTRALINE [facility] SULFA DRUGS [facility] ([facility] INCLUDED IN THIS LIST: Alphabetical list of active outpatient prescriptions dispensed from this VA (local) and dispensed from another [place] or [facility] facility (remote) as well as inpatient orders (local pending and active), local clinic medications, locally documented non-VA medications, and local prescriptions that have or been discontinued in the past 90 days. Non-VA Meds Last Documented On: Apr 16, 2024 NOTE The display of VA prescriptions dispensed from another [place] or [facility] facility (remote) is limited to active outpatient prescription entries matched to National Drug File at the originating site and may not include some items such as investigational drugs, compounds, etc. NOT INCLUDED IN THIS LIST: Medications self-entered by the patient into personal health records (i.e. [employer]) are NOT included in this list. Non-VA medications documented outside this [place], remote inpatient orders (regardless of status) and remote clinic medications are NOT included in this list. The patient and provider must always discuss medications the patient is taking, regardless of where the medication was dispensed or obtained. ------ Non-VA ALBUTEROL 90MCG (CFC-F) 200D ORAL INHL INHALE 2 PUFFS BY MOUTH EVERY 4 HOURS NEEDED Patient wants to buy from Non-VA pharmacy. Medication prescribed by Non-VA provider. Non-VA DICYCLOMINE HCL 10MG CAP TAKE 1 CAPSULE BY MOUTH ONCE DAILY Patient wants to buy from Non-VA pharmacy. Medication prescribed by Non-VA provider. Non-VA OMEPRAZOLE 20MG EC CAP TAKE 1 CAPSULE BY MOUTH EVERY MORNING 30 MINUTES BEFORE BREAKFAST Patient wants to buy from Non-VA pharmacy. Medication prescribed by Non-VA provider. ------ SUPPLIES ------ /clay/ MANNY FREEMAN MD Primary Care Physician Signed: 04/16/2024 12:27 MANNY FREEMAN Apr 16, 2024 11:25 AM PREVENTIVE MEDICIN E NURSING NOTE: LOCAL TITLE: CLINICAL REMINDERS/NURSING STANDARD TITLE: PREVENTIVE MEDICINE NURSING NOTE DATE OF NOTE: APR 16, 2024@11:25 ENTRY DATE: APR 16, 2024@11:25:35 AUTHOR: ELLE ALLEN COSIGNER: URGENCY: STATUS: COMPLETED Advance Directive Screen MH AD: Patient does not have a completed advance directive on file at any facility, VA or outside. S/he is not interested in completing one at this time. The patient received education about Advance Directives and written notification of his/her rights. Suicide Screen: C-SSRS Screening [place] Suicide Severity Rating Scale (C-SSRS) screener 1. Over the past month, have you wished you were or wished you could go to sleep and not wake up? No 2. Over the past month, have you had any actual thoughts of killing yourself? No 3. Over the past month, have you been thinking about how you might do this? Response not required due to responses to other questions. 4. Over the past month, have you had these thoughts and had some intention of acting on them? Response not required due to responses to other questions. 5. Over the past month, have you started to work out or worked out the details of how to kill yourself? Response not required due to responses to other questions. 6. If yes, at any time in the past month did you intend to carry out this plan? Response not required due to responses to other questions. 7. In your lifetime, have you ever done anything, started to do anything, or prepared to do anything to end your life (for example, collected pills, obtained a gun, gave away valuables, went to the roof but didn't jump)? No 8. If YES, was this within the past 3 months? Response not required due to responses to other questions. 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 The [place]/caregiver was informed that we will continue to ask this screening question every 5 years. They can contact their provider/healthcare team if they have concerns about exposures and would like to be screened sooner. Printed information was offered and provided if desired. BMI>30/>24.99 High Risk: Patient declines to discuss weight management. Patient declined weight discussion. Discussed revisiting at a future visit. Homelessness/Food Insecurity Screen: In the past 2 months, have you been living in stable housing that you own, rent, or stay in as part of a household? Yes - Living in stable housing. Are you worried or concerned that in the next 2 months you may NOT have stable housing that you own, rent, or stay in as part of a household? No - Not worried about housing near future The [place] reports the following: Within the past 12 months, you worried whether your food would run out before you got money to buy more. Never true Within the past 12 months, the food you bought just didn't last and you didn't have money to get more. Never true Depression Screening: Perform PHQ-2 A PHQ-2 screen was performed. The score was 0 which is a negative screen for depression. Over the past two weeks, how often have you been bothered by the following problems? 1. Little interest or pleasure in doing things Not at all 2. Feeling down, depressed, or hopeless Not at all MST Screening: Patient denies experiencing sexual trauma (MST). Preferred Language: What is your, or your caregiver's preferred language for healthcare? Preferred Language: Kiny[place] PTSD Screening: PC-PTSD-5 A PTSD screening test (PC-PTSD-5) was negative (score=0). IN THE PAST MONTH, have you ever had any experience that was so frightening, horrible or traumatic. For example: A serious accident or fire a physical or sexual assault or abuse An earthquake or flood A war Seeing someone be killed or seriously injured Having a loved one through homicide or suicide 1. Have you ever experienced this kind of event? NO 2. Had nightmares about the event(s) or thought about the event(s) when you did not want to? Response not required due to responses to other questions. 3. Tried hard not to think about the event(s) or went out of your way to avoid situations that reminded you of the event(s)? Response not required due to responses to other questions. 4. Been constantly on guard, watchful, or easily startled? Response not required due to responses to other questions. 5. [place] numb or detached from people, activities, or your surroundings? Response not required due to responses to other questions. 6. [place] guilty or unable to stop blaming yourself or others for the event(s) or any problems the event(s) may have caused? Response not required due to responses to other questions. Tobacco Use Screening: The patient is a former tobacco user. The patient quit five to less than fifteen years ago. Influenza Immunization: Deferral / Refusal The patient declines to receive the recommended dose of seasonal influenza vaccine. Immunization: INFLUENZA, UNSPECIFIED FORMULATION Refusal Reason: PATIENT DECISION Patient refuses all immunization(s) in the FLU group Date Documented: 04/16/24 11:28 Td / Tdap Immunization: The patient declines to receive the recommended dose of Td/Tdap vaccine. Immunization: TD(ADULT) UNSPECIFIED FORMULATION Refusal Reason: PATIENT DECISION Patient refuses all immunization(s) in the Td group Date Documented: 04/16/24 11:28 Alcohol Use Screen (AUDIT-C): Alcohol Screen: SCREEN FOR ALCOHOL (AUDIT-C) An alcohol screening test (AUDIT-C) was negative (score=0). 1. How often did you have a drink containing alcohol in the past year? Consider a drink to be a 12 ounce can or bottle of regular beer, 8 ounces of malt liquor, a 5 ounce glass of table wine, or a 1.5 ounce shot of liquor (like scotch, gin, or vodka). Never 2. How many drinks containing alcohol did you have on a typical day when you were drinking in the past year? Response not required due to responses to other questions. 3. How often did you have six or more drinks on one occasion in the past year? Response not required due to responses to other questions. COVID-19 Immunization: Referred to another clinic for immunization (desired vaccine unavailable at this location) Sexual Orientation: The patient thinks of their sexual orientation as: Straight or Heterosexual RHS Screen: RHS Screen Session Format: Face to Face Environmental Check Upon inquiry, the individual reports that the environment is safe to proceed. Informed Consent to Screen and Document The individual consents to proceed with screening. The individual consents to documentation of responses. PRIMARY SCREEN: In the past 12 months, how often did a current or former intimate partner (e.g., boyfriend, girlfriend, , , sexual partner): 1. Scream or curse at you Never 2. Insult or talk down to you Never 3. Threaten you with harm Never 4. Physically hurt you Never 5. Force or pressure you to have sexual contact against your will, or when you were unable to say no Never ?? The HITS tool (items 1-4 above) is [place] copyright protected by Nishant Jackman MD, and the user has full rights to use it throughout the [place] system. PRIMARY SCREEN RESULT: The Primary Screen is NEGATIVE. The individual answered never to all forms of IPV above (i.e., answered never to all 5 items) The individual accepts education and/or resources: No EDUCATION: The individual indicated readiness to learn. Education offered during this session as noted above. The individual indicated understanding by asking relevant questions and making appropriate comments. No barriers to learning were observed or identified. /clay/ ELLE ALLEN LPN PACT 10 Signed: 04/16/2024 11:29 ELLE ALLEN
== END 2024-08-19 13:22 | disposition home or self-care (01) ==
PROVIDERS: PCP Internal Medicine; Visit Provider Orthopaedic Surgery
DX: M17.11 Unilateral primary osteoarthritis, right knee (principal)
CPT/HCPCS: 20610; 99213

== ENCOUNTER → 2024-08-19 12:44 | Outpatient (BNVA) | payer OTHER, SELFPAY | PROVIDERS: PCP Internal Medicine; Visit Provider Orthopaedic Surgery | DX: M17.11 Unilateral primary osteoarthritis, right knee (principal) | CPT/HCPCS: 20610; 99212; J0665; J1100; J2003 ==

== ENCOUNTER 2024-12-13 14:55 | Outpatient (AMB) | payer SELFPAY ==
--- NOTE | 2024-12-13 14:59 | MHC.PC.OV ---
Vital Signs 12/13/24 15:01 Height 5 ft 10 in Weight 225 lb BMI 32.3 BP 132/78 Blood Pressure Location Lt brachial Position Sitting Pulse 72 Pulse Source Pulse Oximeter Temp 96.9 F Temp Source Temporal Artery Scan Pulse Oximetry (%) 99 Oxygen Delivery Method Room Air Intake Visit Reasons: MEHREEN DR Villasenor Intake Note: Patient is here today for MEHREEN from Dr Villasenor International Trade Manager Required: No Superintendent Tests: Not Required per policy Accompanied by: Self / Same As Patient Allergies diphenhydramine Allergy (Intermediate, Verified 12/13/24 15:31) hives apple [APPLE] Allergy (Mild, Verified 12/13/24 15:31) NECK PAIN COUGH amoxicillin [AMOXICILLIN] Allergy (Unknown, Verified 12/13/24 15:31) HIVES azithromycin [From ZITHROMAX] Allergy (Unknown, Verified 12/13/24 15:31) COLITIS clindamycin [CLINDAMYCIN] Allergy (Unknown, Verified 12/13/24 15:31) GI PROBLEMS lactose [LACTOSE] Allergy (Unknown, Verified 12/13/24 15:31) GI SYMPTOMS, VOMITING, DIFF BREATHING levofloxacin [Levaquin] Allergy (Unknown, Verified 12/13/24 15:31) rash on hand naproxen [NAPROXEN] Allergy (Unknown, Verified 12/13/24 15:31) STOMACH UPSET penicillin V Allergy (Unknown, Verified 12/13/24 15:31) hives Penicillins [PENICILLINS] Allergy (Unknown, Verified 12/13/24 15:31) HIVES Sulfa (Sulfonamide Antibiotics) [SULFA (SULFONAMIDE ANTIBIOTICS)] Allergy (Unknown, Verified 12/13/24 15:31) HIVES aspirin Adverse Reaction (Unknown, Verified 12/13/24 15:31) upset stomach sertraline [Zoloft] Adverse Reaction (Unknown, Verified 12/13/24 15:31) SI thoughts all nsaids Allergy (Unknown, Uncoded 12/13/24 15:31) stomach upset Codeine Phosphate Allergy (Unknown, Uncoded 12/13/24 15:31) hives Medication List - Last Reconciled 12/13/24 by Kalyn Dunn PA-C cholecalciferol (vitamin D3) 50 mcg PO DAILY [Custom Medial Unloading brace, Right knee As directed] methylcellulose (laxative) (Citrucel) 500 mg PO DAILY olopatadine 0.2% 1 drp ophthalmic (eye) DAILY omeprazole 20 mg PO DAILY sennosides (Natural Senna Laxative) 17.2 mg (2 x 8.6 mg) PO BEDTIME Tobacco use date assessed: 12/13/24 Dental Screening Dental Screen Date: 12/13/24 Did you have a dental visit in the last 12 months?: No Did you have a dental problem in the last 6 months where you did not have access to dental care?: No Was dental information given to patient?: Patient declined HPI MEHREEN DR Villasenor HPI Details 34-year-old male with past medical history of obesity last seen 02/2024 coming in for transfer of care. [facility] - ([id number]) Presenting for the transfer of care and management of multiple chronic conditions. He reports a history of GERD, for which omeprazole has been effective; however, he has run out of the medication and other alternatives provided have been ineffective. Despite lactose intolerance, he has not observed reactions to medications possessing lactose. Depression and anxiety have been longstanding, aggravated by daily professional responsibilities, and prior treatment with Zoloft resulted in unfavorable side effects without symptom relief. Daily bilateral hand numbness and tingling, indicative of Carpal Tunnel Syndrome, are more severe on the left, with previous nerve conduction studies consistent with a mild condition. The patient?s right knee has a history of ACL and meniscus surgeries, with persistent osteoarthritis. service from 2010 to 2016 resulted in cervical spine injury, erroneously addressed via physical therapy with persistent symptoms necessitating further evaluation by MRI. He is following with his [facility] doctor for this concern. Musculoskeletal concerns restrict participation in preferred physical activities, perpetuating difficulty in maintaining desired fitness levels. For his neck and radiculopathy patient did complete 4 weeks of physical therapy and has also tried a TENS unit without good relief. [facility] Medical History Enlarged RV (right ventricle) Neck injury Elevated BP without diagnosis of hypertension Surgical History History of tonsillectomy History of anterior cruciate ligament surgery History of knee surgery Family History Mother Hypertension Father Diabetes Hypertension High cholesterol Brother WPW (Ucwlh-Tpmujsmdv-Ozhnw syndrome) Social History Housing: Apartment Alcohol intake: current Alcohol intake frequency: does not drink Patient Tobacco Use Status: Former Tobacco user e-Cigarette/Vaping Use: Never Used Second Hand Smoke Exposure: Yes service: Yes Current occupational status: employed 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 1. Little interest or pleasure in doing things: not at all 2. Feeling down, depressed, or hopeless: not at all 3. Trouble falling or staying asleep, or sleeping too much: nearly every day 4. Feeling tired or having little energy: several days 5. Poor appetite or overeating: not at all 6. Feeling bad about yourself - or that you are a failure or have let yourself or your family down: not at all 7. Trouble concentrating on things, such as reading the newspaper or watching television: several days 8. Moving or speaking so slowly that other people could have noticed. Or the opposite - being so fidgety or restless that you have been moving around a lot more than usual: not at all 9. Thoughts that you would be better off or of hurting yourself in some way: not at all Total score: 5 Depression Screening Interpretation: Positive Depression Screening Done: Yes Source: Developed by Drs. Cuate Luna, La Nena Hairston, Aman Mcgill and colleagues, with an educational priscila from [employer]. Thrive Questionnaire Date Thrive assessed: 12/13/24 I am a: Patient What is your living situation today?: I have a steady place to live Within the past 12 months, did the food you bought not last and you didn't have the money to get more?: Never true Within the past 12 months, did you worry whether your food would run out before you got money to buy more?: Never true Do you have trouble paying for medicines?: I choose not to answer this question Do you have trouble getting transportation to medical appointments?: No Do you have trouble paying your heating and electricity bill?: I choose not to answer this question Do you have trouble taking care of your child, family member or friend?: No Do you have trouble with day-to-day activities such as bathing, preparing meals, shopping, managing finances, etc.?: No Are you currently unemployed and looking for a job?: No Are you interested in more education?: No Please select the resources that you would like help with: None Currently or been in a relationship where the following occur: No concerns reported THRIVE Score: 0 AUDIT C Alcohol Use Questionnaire (AUDIT-C) 1. How often do you have a drink containing alcohol?: Never Total Score: 0 SUDARSHAN-7 AMB Questionnaire SUDARSHAN-7 Date SUDARSHAN - 7 assessed: 12/13/24 Feeling nervous, anxious, or on edge: 3 = Nearly every day Not being able to stop or control worryin = More than half the days Worrying too much about different things: 2 = More than half the days Trouble relaxin = More than half the days Being so restless that it is hard to sit still: 2 = More than half the days Becoming easily annoyed or irritable: 1 = Several days Feeling afraid as if something awful might happen: 1 = Several days Total SUDARSHAN-7 score (0-4 normal; 5-9 mild; 10-14 moderate; 15-21 severe): 13 Source: Developed by Drs. Cuate Luna, La Nena Hairston, Aman Mcgill and colleagues, with an educational priscila from [employer]. SUDARSHAN-7 Assessment Billing SUDARSHAN-7 Assessment Tool: SUDARSHAN-7 Assessment 99600 Review of Systems Const Denies body aches, Denies chills, Denies fever(s), Denies headache(s) and Denies poor appetite Eyes Reports no additional complaints ENT Denies dysphagia, Denies dizziness, Denies headache(s) and Denies odynophagia Card Denies chest pain, Denies edema, Denies lightheadedness and Denies dyspnea Resp Denies cough and Denies dyspnea GI Reports as per HPI, Reports abdominal pain (occasional), Denies constipation, Denies dysphagia, Denies diarrhea, Denies nausea, Denies odynophagia and Denies vomiting Reports no additional complaints Musc Reports as per HPI and Denies abnormal gait Skin/Breast Reports system reviewed and no additional complaints, except as documented Neuro Denies abnormal gait, Denies dizziness and Denies headache(s) Psych Reports no additional complaints Physical exam (Primary Care) Vital Signs: Last Vital Signs Temp 96.9 F 12/13/24 15:01 Pulse 72 12/13/24 15:01 BP 132/78 12/13/24 15:01 Pulse Ox 99 12/13/24 15:01 Oxygen Delivery Method Room Air 12/13/24 15:01 BMI result Body Mass Index 32.3 Tobacco/Smoking Status: Tobacco use Status Tobacco use date assessed 12/13/24 12/13/24 15:06 Patient Tobacco Use Status Former Tobacco user 12/13/24 15:06 e-Cigarette/Vaping Use Never Used 12/13/24 15:06 PHQ-9: PHQ-9 Score PHQ-9: Total score 5 12/13/24 15:06 Depression Screening Interpretation: Positive Thrive Assessment: Date of Thrive Assessment Date Thrive assessed 12/13/24 12/13/24 15:06 Currently or been in a relationship where the following occur: No concerns reported Const General: cooperative, healthy appearing, comfortable and no acute distress Orientation/consciousness: patient oriented x3 HENMT Head: Yes normocephalic Ears: hearing grossly normal bilaterally General nose exam: Normal external nose present Eyes General: appearance normal, both eyes and all related structures Conjunctivae: conjunctivae normal Neck Neck: Yes full ROM and Yes no lymphadenopathy Resp Effort & Inspection: normal respiratory effort Auscultation: clear to auscultation bilaterally, no crackles, no rales, no rhonchi and no wheezes Cardio Rate: regular rate Rhythm: regular rhythm Skin General skin exam: no rashes or lesions noted Neuro General: patient oriented x3 Gait exam (Neuro): Normal gait present Extrem General: Yes normal to inspection, Yes full ROM and No edema Psych Affect: normal affect Attitude: cooperative Insight: Good insight present (Psych) Judgement: Good judgement present (Psych) Coding Level of Care Code Est Pt Level 4 (59594) Diagnoses Anxiety F41.9 Insomnia G47.00 Cervical radicular pain M54.12 Elevated BP without diagnosis of hypertension R03.0 Obesity E66.9 Localized osteoarthritis of right knee M17.11 Multiple food allergies Z91.018 Carpal tunnel syndrome of left wrist G56.02 Carpal tunnel syndrome on right G56.01 GERD (gastroesophageal reflux disease) K21.9 Cardiac murmur R01.1 ADHD F90.9 Additional Codes SUDARSHAN-7 Assessment Billing - SUDARSHAN-7 Assessment Tool: SUDARSHAN-7 Assessment 68304 ([id number]) Assessment & Plan Assessment & Plan (1) Anxiety: Code(s): F41.9 - Anxiety disorder, unspecified Category: Medical Plan: Patient complaining of anxiety and depression plan to start on trazodone 50 mg at bedtime for treatment of both anxiety, depression and insomnia. As patient to take medication daily and did discuss side effects of this medication with the patient. Plan to follow up at next visit to review medication (2) Insomnia: Code(s): G47.00 - Insomnia, unspecified Category: Medical Plan: See above (3) Cervical radicular pain: Code(s): M54.12 - Radiculopathy, cervical region Category: Medical Plan: Patient having cervical radicular pain he was evaluated by [facility] sent to [facility]. He continues to have pain despite 4 weeks of physical therapy and the use of 10s units. He has failed most conservative management. He has a follow up with his [facility] doctor and advised patient if symptoms worsen or persist and not being evaluated by the [facility] we can consider MRI or referral to spinal specialist. (4) Elevated BP without diagnosis of hypertension: Code(s): R03.0 - Elevated blood-pressure reading, without diagnosis of hypertension Category: Medical Plan: Avoid salt intake and encourage healthy diet and regular exercise. (5) Obesity: Code(s): E66.9 - Obesity, unspecified Category: Medical Plan: Healthy diet and regular exercise is encouraged. (6) Localized osteoarthritis of right knee: Code(s): M17.11 - Unilateral primary osteoarthritis, right knee Category: Medical Plan: Patient is currently following with [facility] for this concern. (7) Multiple food allergies: Code(s): Z91.018 - Allergy to other foods Category: Medical Plan: Referral was placed to court bailiff today for further evaluation. (8) Carpal tunnel syndrome of left wrist: Code(s): G56.02 - Carpal tunnel syndrome, left upper limb Category: Medical Plan: Patient complaining of bilateral carpal tunnel he has used wrist splints in the past with good relief but finds them uncomfortable. Patient denies significant impairment in the ability of bilateral hands. He does not have consistent numbness or tingling. Advised patient to use night splints and if symptoms worsen or persist can consider upper extremity EMG and referral to hand Orthopedics (9) Carpal tunnel syndrome on right: Code(s): G56.01 - Carpal tunnel syndrome, right upper limb Category: Medical Plan: See above (10) GERD (gastroesophageal reflux disease): Code(s): K21.9 - Gastro-esophageal reflux disease without esophagitis Category: Medical Plan: Avoid trigger foods such as citrus, tomato products, soda, caffeine, spicy foods and other foods that may be irritating to your stomach. Avoid laying flat 3-4 hours after eating and elevate the head of the bed 30 degrees to prevent acid from moving into the esophagus. Continue on omeprazole Patient feels his symptoms are not well managed he does use omeprazole daily and would like to continue on this current dose. Plan to obtain upper GI series as well (11) Cardiac murmur: Code(s): R01.1 - Cardiac murmur, unspecified Category: Medical Plan: Patient was found to have cardiac murmur he did have a cardiac echocardiogram completed several years ago determined to be a benign murmur (12) ADHD: Code(s): F90.9 - Attention-deficit hyperactivity disorder, unspecified type Category: Medical Plan: Patient was previously being treated for ADHD as a child and declining medication at this time. Plan I have advised continued use of Omeprazole for GERD while scheduling an upper GI series to better assess chronic symptoms. Omeprazole represents the most effective treatment to date. Refills for dicyclomine have been given for IBS management while an allergy referral will address suspected beef and apple allergies. Given anxiety disorder exacerbated by occupational exposure, a trial of trazodone is proposed, with initial mild dosages intending to minimize side effects. Trazodone for insomnia begins with a modest dose, gradually adjusting based on response. Wrist splints are recommended at nighttime for Carpal Tunnel Syndrome, aiming to forestall nerve damage. Consideration of MRI and possible further intervention on unresolved cervical spine issues follow persistence of symptoms post-physical therapy. Antral lab work orders, inclusive of fasting cholesterol, renal, hepatic panels, and testosterone, provide insight into preventive and therapeutic goals. This note was constructed using voice recognition software. While every effort has been made to ensure accuracy and grading clerk, still areas may have been included sometimes these areas may affect the content or meeting of the given symptoms. Total time spent caring for the patient today was 45 minutes. This includes time spent before the visit reviewing the chart, time spent during the visit, and time spent after the visit and documentation. Patient was informed and verbally consented to the use of an ambient scribe for clinic note documentation during this visit. Orders: Orders Complete Blood Count Auto Diff 12/13/24 E66.9 - Obesity, unspecified, Z00.00 - Encounter for general adult medical examination without abnormal findings Vitamin B12 and Folate 12/13/24 E66.9 - Obesity, unspecified, Z00.00 - Encounter for general adult medical examination without abnormal findings Lipid Panel 12/13/24 Z13.220 - Encounter for screening for lipoid disorders [place] upper GI series 12/13/24 K21.9 - Gastro-esophageal reflux disease without esophagitis Comprehensive Met. Panel 12/13/24 E66.9 - Obesity, unspecified, Z00.00 - Encounter for general adult medical examination without abnormal findings TSH reflex Free T4 12/13/24 E66.9 - Obesity, unspecified, Z00.00 - Encounter for general adult medical examination without abnormal findings Free T4 (Free Thyroxine) 12/13/24 E66.9 - Obesity, unspecified, Z00.00 - Encounter for general adult medical examination without abnormal findings Vitamin D 25-OH Total 12/13/24 E66.9 - Obesity, unspecified, Z00.00 - Encounter for general adult medical examination without abnormal findings Testosterone, Total 12/13/24 G47.00 - Insomnia, unspecified Referrals Allergy & Immunology Referral Z91.018 - Allergy to other foods Medications: New levocetirizine (Xyzal) 5 mg PO DAILY 90 tabs 0RF dicyclomine 10 mg PO BID 30 caps 0RF trazodone 50 mg PO BEDTIME 90 tabs 1RF albuterol sulfate 90 mcg/actuation 1 inh inhalation QID PRN 8.5 grams 0RF shortness of breath or wheezing Refilled omeprazole 20 mg PO DAILY 90 tabs 1RF Discontinued sennosides (Natural Senna Laxative) Discontinued Reason: Patient no longer taking 17.2 mg (2 x 8.6 mg) PO BEDTIME 60 tabs 1RF constipation K59.00 - Constipation, unspecified
--- OUTSIDE RECORDS SUMMARY | 2024-12-13 14:59 | XMS_ITS | Encounter Summary ---
Author Name [facility] [place] Organization [facility] [place] Address [address] [place] [id number] Care Team Providers Care Pay Per Click Strategist Name Role Phone MANNY FREEMAN Primary Care Provider Unavailabl e Selected Encounter This section includes the information on record at [place] for the Encounter. Date/Time Encounter Type Encounter Description Reason Provider Source Nov 01, 2024 10:30 AM OFFICE O/P EST MOD 30 MIN PRIMARY CARE/MEDICINE ICD-10-CM M54.2 Cervicalgia MANNY FREEMAN [employer] Encounter Template Text not used by [place] Assessments - Encounter Diagnoses This section includes the primary and secondary diagnoses documented for the Encounter. Date/Time Primary/Secondary Diagnosis Diagnosis Name Provider Source Nov 01, 2024 11:39 AM PRIMARY Cervicalgia MANNY FREEMAN Nov 01, 2024 11:39 AM SECONDARY Gastro-esophageal reflux disease without esophagitis MANNY FREEMAN Nov 01, 2024 11:39 AM SECONDARY Headache, unspecified MANNY FREEMAN Nov 01, 2024 11:39 AM SECONDARY Irritable bowel syndrome, unspecified MANNY FREEMAN [facility] Nov 01, 2024 11:39 AM SECONDARY Obesity, unspecified MANNY FREEMAN [facility] Plan of Treatment: Future Appointments (+ 6 months) and Future Tests (+/- 45 days) The Plan of Treatment section includes future care activities for the patient from all [place] treatmentfacilities. This section includes future appointments and future orders which are active, pending or scheduled. Future Appointments This section includes appointments that were scheduled to occur 6 months from the date of the Encounter, up to a maximum of 20 appointments. The data comes from all [place] treatment facilities. Appointment Date/Time Appointment Type Appointme Facility Name Nov 03, 2024 08:00 AM AMBULATORY - PSYCHIATRY [facility] Nov 08, 2024 01:00 PM AMBULATORY [facility] [place] [facility] Nov 15, 2024 02:00 PM AMBULATORY - REHAB MEDICIN E [facility] Nov 23, 2024 01:00 PM AMBULATORY - REHAB MEDICIN E [facility] November 25, 2024 08:30 AM AMBULATORY - PSYCHIATRY [facility] November 30, 2024 01:00 PM AMBULATORY - REHAB MEDICIN [facility] December 03, 2024 01:00 PM AMBULATORY - NONE [facility] [place] [facility] December 07, 2024 01:00 PM AMBULATORY - REHAB MEDICIN E [facility] December 10, 2024 12:00 PM AMBULATORY - MEDICINE [facility] [place] [facility] December 14, 2024 01:00 PM AMBULATORY - PSYCHIATRY [facility] December 24, 2024 03:00 PM AMBULATORY - REHAB MEDICIN E [facility] Dec 28, 2024 01:00 PM AMBULATORY - PSYCHIATRY [facility] [place] [facility] Jan 04, 2025 01:00 PM AMBULATORY - PS[facility]CHIATRY [facility] [place] [facility] Jan 05, 2025 10:30 AM AMBULATORY - MEDICINE [facility] [place] [facility] Jan 11, 2025 01:00 PM AMBULATORY - PSYCHIATRY [facility] [place] [facility] Jan 17, 2025 01:00 PM AMBULATORY - PSYCHIATRY [facility] [place] [facility] Feb 01, 2025 01:00 PM AMBULATORY - PSYCHIATRY [facility] [place] [facility] Feb 04, 2025 02:30 PM AMBULATORY - SURGERY [facility] [place] [facility] Feb 08, 2025 01:00 PM AMBULATORY - PSYCHIATRY [facility] [place] [facility] Apr 11, 2025 11:00 AM AMBULATORY - MEDICINE [place] [facility] [place] [facility] Active, Pending, and Scheduled Orders This section includes a listing of several types of active, pending, and scheduled orders, including clinic medications orders, diagnostic test orders, procedure orders and consult orders; where the start date of the order is 45 days before the date of the Encounter or 45 days after the date of theEncounter. The data comes from all [place] treatment facilities. Test Date/Time Test Type Test Details Facility Name Nov 01, 2024 12:00 AM Laboratory - Chemistry Order HEPATITIS C ANTIBODY (HCV)-ARC BLOOD (MARBLED-TOP SERUM) SP ONCE [facility] Nov 02, 2024 09:04 AM Consult Order BHIP PSYCHIATRIC MEDICATION/SOPC OUTPT [facility] [employer] Nov 03, 2024 08:54 AM Consult Order COMMUNITY CARE-BH PSYCHOTHERAPY [facility] [employer] [facility] November 25, 2024 10:11 AM Consult Order CBT-INSOMNIA/SPOPC OUTPT [facility] [employer] [facility] December 10, 2024 03:42 PM Consult Order COMMUNITY CARE-ORTHO GENERAL [facility] [employer] [facility] Social History: Smoking Status (Most current) and Tobacco Use (All prior to encounter date) This section includes the most current, and the historical, smoking and tobacco- related health factors from the [place] facility where the Encounter took place. Current Smoking Status This section includes the most current smoking, or tobacco-related health factor, from the [place] facility where the Encounter took place. Date/Time Current Smoking Status Comment Facil ity Apr 16, 2024 11:00 AM VA-TOBACCO FORMER USER [facility] Tobacco Use History This section includes a history of the smoking, or tobacco-related health factors, that were collected on or before the date of the Encounter. The data comes from the [place] facility where the Encounter took place. Date/Time Smoking Status/Tobacco Use Comment F acility Apr 16, 2024 11:00 AM [place]-TOBACCO QUIT 5 TO < 15 YRS [facility] Radiology Reports: +/- 30 days of the encounter Radiology Reports For cases when an order for radiology services may have been completed prior to the date of the Encounter, the report list includes the Radiology Reports that were completed up to 30 days before dateof the Encounter. For cases when an order for radiology services may have been completed after the date of the Encounter, the report list also includes the Radiology Reports that were completed up to30 days after date of the Encounter. The data comes from all [place] treatment facilities. Date/Time Radiology Report Provider Source Nov 17, 2024 01:40 PM OUTSIDE KNEE 2 VIEWS(RIGHT): ESTEPHANIAADAM SUZETTE [id number] -[id number] M Exm Date: NOV 17, 2024@13:40 Req Phys: MANNY FREEMAN Loc: [facility]/OUTSIDE IMAGING NON-CNT (R Img Loc: OUTSIDE GENERAL RADIOLOGY Service: Unknown (Case [id number] COMPLETE) OUTSIDE KNEE 2 VIEWS(RIGHT) (RAD Detailed) CPT:35412 Reason for Study: outside images have been uploaded for continuity of care Clinical History: outside images have been uploaded for continuity of care Report Status: Electronically Filed Date Reported: NOV 17, 2024 Report: THIS EXAM WAS PERFORMED AND INTERPRETED AT AN OUTSIDE HOSPITAL Impression: THIS EXAM WAS PERFORMED AND INTERPRETED AT AN OUTSIDE HOSPITAL Primary Diagnostic Code: VERIFIED BY: / *ELECTRONICALLY FILED* [facility] Nov 01, 2024 01:19 PM SPINE CERVICAL, 4 OR 5 VIEWS: ADAM BEST [id number] -[id number] M Exm Date: NOV 01, 2024@13:19 Req Phys: MANNY FREEMAN Loc: [facility] PACT 10 MD [facility] (Req'g Loc) Img Loc: [facility] 1 Service: [place] [address] (Case [id number] COMPLETE) SPINE CERVICAL, 4 OR 5 VIEWS (RAD Detailed) CPT:08182 Reason for Study: neck pain Clinical History: with left arm radiculopathy Report Status: Verified Date Reported: NOV 01, 2024 Date Verified: NOV 01, 2024 Video Game Engineer E-Sig:/ES/BING WAGNER JR Report: Study: AP, lateral and oblique views of the cervical spine. Comparison: None. Findings: The paraspinal soft tissues appear normal. The bony mineralization is normal. There is straightening of the normal cervical lordosis present which can be seen with patient positioning pain or muscular spasm with no anterolisthesis or retrolisthesis identified. The cervical spine intervertebral discs spaces appear normal. The vertebral body heights are normal. No bony fracture, dislocation or subluxation is identified. No bony neural foraminal impingement is identified on oblique views. If the patient continues to have pain, or an occult fracture and/or injury is suspected, CT or MRI may be helpful. Impression: No acute bony abnormality identified. Primary Diagnostic Code: No immediate attention required Primary Interpreting Staff: BING WAGNER JR, Radiologist (Video Game Engineer) /BING BISWAS JR [facility] Encounter Notes: All associated encounter notes This section contains the clinical notes associated to the Encounter. Date/Time Encounter Note(s) Provider Source Nov 01, 2024 10:39 AM PREVENTIVE MEDICIN E NURSING NOTE: LOCAL TITLE: CLINICAL REMINDERS/NURSING STANDARD TITLE: PREVENTIVE MEDICINE NURSING NOTE DATE OF NOTE: NOV 01, 2024@10:39 ENTRY DATE: NOV 01, 2024@10:39:43 AUTHOR: ELLE ALLEN EXP COSIGNER: URGENCY: STATUS: COMPLETED Pneumococcal Conjugate Vaccine (PCV15/PCV20/PCV21): Refuses PCV vaccine Immunization: PNEUMOCOCCAL CONJUGATE, UNSPECIFIED FORMULATION Refusal Reason: PATIENT DECISION Patient refuses all immunization(s) in the PneumoPCV group Date Documented: 11/01/24 10:39 Influenza Immunization: Deferral / Refusal The patient declines to receive the recommended dose of seasonal influenza vaccine. Immunization: INFLUENZA, UNSPECIFIED FORMULATION Refusal Reason: PATIENT DECISION Patient refuses all immunization(s) in the FLU group Date Documented: 11/01/24 10:40 Td/Tdap Immunization: The patient declines to receive the recommended dose of Td/Tdap vaccine. Immunization: TD(ADULT) UNSPECIFIED FORMULATION Refusal Reason: PATIENT DECISION Patient refuses all immunization(s) in the Td group Date Documented: 11/01/24 10:40 COVID-19 Immunization: Refused Moderna Monovalent COVID-19 vaccine Immunization: COVID-19 (MODERNA), MRNA, LNP-S, PF, 50 MCG/0.5 ML (AGES 12+ YEARS) Refusal Reason: PATIENT DECISION Patient refuses all immunization(s) in the COVID-19 group Date Documented: 11/01/24 10:40 /clay/ ELLE ALLEN LPN PACBailey 10 Signed: 11/01/2024 10:40 ELLE ALLEN Nov 01, 2024 06:02 AM PHYSICIAN NOTE: LOCAL TITLE: MD NOTE STANDARD TITLE: PHYSICIAN NOTE DATE OF NOTE: NOV 01, 2024@06:02 ENTRY DATE: NOV 01, 2024@06:02:58 AUTHOR: MANNY FREEMAN EXP COSIGNER: URGENCY: STATUS: COMPLETED NOTE Has ADDENDA HISTORY OF PRESENT ILLNESS: ADAM BEST is a 34 yo MALE who [facility]. He has maintained a nonVA PCP: Dr Norris Villasenor at [facility] in [place]. However, he wishes to transfer all his care to the [facility] bc he no longer has insurance. NonVA Providers: PCP: Dr Villasenor Orthopedics: Dr Roa Gastroenterology: Dr Preeti Humphries Per triage note 10/05/24: Spoke with the and he stated that he has been dealing with stomach pain, body aches, and migraines for the last 10 years. [place] states he no longer has an outside PCP and is transferring care to the [facility] completely. states he tried everything his old PCP offered to assist with his ailments , but nothing worked. Per triage note 08/17/24: asking for assistance with his injuries for neck, back, shoulders and hips. asking for both Acupuncture and health care administrator. Active problems - Computerized Problem List is the source for the followin. Gastroesophageal reflux disease 2. NonVA Providers 3. Exsmoker 4. Obesity 5. Irritable bowel syndrome 6. Exercise induced asthma The following VA and Non-VA meds were reconciled with patient: Active Outpatient Medications (including Supplies): Start Date Active Non-VA Medications Status Stop Date 1) Non-VA ALBUTEROL 90MCG (CFC-F) 200D ORAL ACTIVE INHL Si PUFFS BY MOUTH EVERY 4 HOURS NEEDED 2) Non-VA DICYCLOMINE HCL 10MG CAP SiMG BY ACTIVE MOUTH ONCE DAILY 3) Non-VA OMEPRAZOLE 20MG EC CAP SiMG BY ACTIVE MOUTH EVERY MORNING 30 MINUTES BEFORE BREAKFAST ALLERGIES: ========= DIPHENHYDRAMINE, APPLES, AMOXICILLIN, AZITHROMYCIN, CLINDAMYCIN, LACTOSE LEVOFLOXACIN, NAPROXEN, PENICILLIN, SULFA DRUGS, ASPIRIN RELATED MEDICATIONS SERTRALINE, NONSTEROIDAL ANTI-INFLAMMATORY, CODEINE PHOSPHATE HISTORY: PERIOD OF SERVICE - OTHER OR NONE UNKNOWN COMBAT SERVICE INDICATED: No 70% Service Connected VITAL SIGNS: Blood Pressure 143/90 (11/01/2024 10:38)Repeat BP: 141/92 Pulse 78 (11/01/2024 10:38) Respiration 18 (11/01/2024 10:38) Pulse Oximetry 98% (11/01/2024 10:38) Temperature 98.6 F [37.0 C] (11/01/2024 10:38) Pain 0 (11/01/2024 10:38) Height 70 in [177.8 cm] (11/01/2024 10:38) Weight 229.2 lb [103.96 kg] (11/01/2024 10:38) BMI BMI: 33.0 REVIEW OF SYSTEMS: CARDIOVASCULAR: No chest pain, no palps RESPIRATORY: No SOB, no wheezing GASTROINTESTINAL: No abd pain, no N/V/D MUSCULOSKELETAL: No joint pain PSYCHIATRIC: No anxiety, no depression NEUROLOGIC: No H/A, no weakness EXAMINATION: GENERAL: WD/WN in NAD HEENT: Moist mucosa NECK: Supple HEART: RRR, S1-S2, no murmurs LUNGS: CTA B/L EXTREMITIES: FROM x 4 NEUROLOGIC: AAO x3, no FF's PSYCHIATRIC: Good eye contact ASSESSMENT/PLAN: 1. Obesity: BMI ~33, advised wt loss and to not eat late at night 2. GERD: will trial famotidine 20mg BID 3. IBS: with diarrhea, suggested adding fiber to his diet 4. Exercise Induced Asthma: on albuterol prn 5. Multiple Joint Pain: suggested turmeric (at least 3000mg/day), tylenol arthritis, and will Rx diclofenac gel QID (has used before without any issues) keep well hydrated 6. Anxiety D/O: will refer to for eval/tx 7. Neck Pain: no trauma, no prior surgery, will order Xray and PT 8. TMJ (per ): he cracks his jaw stating a chiropractor taught him how to do that in the past, however he c/o migraines frequently, advised to stop cracking his jaw, obtain a mouth guard, relaxation techniques discussed, he does clench his teeth from anxiety and stress 9. Elevated BP w/o Dx of HTN: seems to possibly be stress/anxiety induced, discussed relaxation techniques at length FOLLOW UP: 2 mths - AWE - FBW prior - Need prior medical records to review, also to confirm all these allergies he states he has ========= UPCOMING APPOINTMENTS: 04/11/2025 11:00 [facility] PACT 10 MD L[facility] No barriers; Patient understands and agrees to current treatment plan. If pt has any questions, concerns, or changes in current health status he/she will call or come in to the VA. Medication Reconciliation: Outpatient: Has the patient been taking medications as documented in the EMLR? YES: The patient has been taking medications as documented in the EMLR. Essential Medication List for Review used to complete this medication reconciliation. INCLUDED IN THIS LIST: Alphabetical list of active outpatient prescriptions dispensed from this [facility] (local) and dispensed from another [place] or [facility]D facility (remote) as well as [...] FACILITY ALLERGY/ADR -------- [facility] REPT EFF [id number] PENICILLINS CLNCL/[facility] REPT EFF [id number] SULFA DR[facility]GS [facility] SULFA DRUGS Med Recon NoGlossary (Tool #1) INCLUDED IN THIS LIST: Alphabetical list of active outpatient prescriptions dispensed from this VA (local) and dispensed from another [place] or [facility] facility (remote) as well as inpatient orders (local pending and active), local clinic medications, locally documented non-VA medications, and local prescriptions that have or been discontinued in the past 90 days. Non-VA Meds Last Documented On: Apr 16, 2024 NOTE The display of VA prescriptions dispensed from another [place] or DoD facility (remote) is limited to active outpatient prescription entries matched to National Drug File at the originating site and may not include some items such as investigational drugs, compounds, etc. NOT INCLUDED IN THIS LIST: Medications self-entered by the patient into personal health records (i.e. [facility]) are NOT included in this list. Non-VA medications documented outside this [place], remote inpatient orders (regardless of status) and [...] prescribed by Non-VA provider. ------ SUPPLIES ------ Hepatitis C Testing: Patient has given verbal consent for HCV antibody testing. An HCV lab test has been ordered - see orders tab. Lipid Screening: Lipid profile ordered at this encounter. /clay/ MANNY FREEMAN MD Primary Care Physician Signed: 11/01/2024 11:42 11/01/2024 ADDENDUM STATUS: COMPLETED Called and informed of the results of his Xray of his C-Spine performed 11/01/24. Will Rx cyclobenzaprine 5mg TID. Discussed R/B/A effects of med. Physical therapy has been ordered. ===== (Case 72 COMPLETE) SPINE CERVICAL, 4 OR 5 VIEWS Reason for Study: neck pain Clinical History: with left arm radiculopathy Date Verified: NOV 01, 2024 Report: Study: AP, lateral and oblique views of the cervical spine. Comparison: None. Findings: The paraspinal soft tissues appear normal. The bony mineralization is normal. There is straightening of the normal cervical lordosis present which can be seen with patient positioning pain or muscular spasm with no anterolisthesis or retrolisthesis identified. The cervical spine intervertebral discs spaces appear normal. The vertebral body heights are normal. No bony fracture, dislocation or subluxation is identified. No bony neural foraminal impingement is identified on oblique views. If the patient continues to have pain, or an occult fracture and/or injury is suspected, CT or MRI may be helpful. Impression: No acute bony abnormality identified. /es/ MANNY FREEMAN MD Primary Care Physician Signed: 11/01/2024 14:05 12/10/2024 ADDENDUM STATUS: COMPLETED Called and spoke to regarding results of his MRI Right Knee performed 12/03/24. Will refer him back to Dr Shahbaz Roa at [facility]. He has had 2 prior surgeries on his right knee. Had a steroid injection in 07/2024 but was ineffective in alleviating his sxs. Report Status: Verified Date Reported: DECEMBER 03, 2024 Date Verified: DECEMBER 03, 2024 Video Game Engineer E-Sig:/ES/BING WAGNER JR Report: Study: MRI of the right knee. Comparison: Right knee radiographs from November 17, 2024. Technique: Multisequence and multiplanar imaging was performed through the knee without the use of gadolinium contrast agent. Findings: The patient is again status post right ACL reconstruction. The reconstructed graft appears thinned but is overall intact and normal in course. There is near complete maceration and destruction of the medial meniscal body and posterior horn with only a small residual remnant of the posterior horn of the medial meniscus remaining. These findings can be seen secondary to arthritis versus surgical removal/prior meniscectomy. There is mild anterior subluxation of the residual anterior horn of the medial meniscus without meniscal tear identified. There is moderate diffuse overall thinning of the medial compartment femoral tibial cartilage without osteochondral lesion identified. The lateral meniscus is intact and normal. The medial and lateral collateral ligaments are intact and normal. The posterolateral corner of the knee is intact and normal. The posterior cruciate ligament appears intact and normal. The quadriceps and patellar tendons are intact and normal. There is no joint effusion or Talamantes's cyst present. The popliteal fossa appears normal. There is no bone bruising or fracturing. The patellofemoral and lateral compartment tibiofemoral cartilage are normal. Impression: Nonvisualization of the majority of the medial meniscal body and posterior horn, as described above. /es/ MANNY FREEMAN MD Primary Care Physician Signed: 12/10/2024 15:45 MANNY FREEMAN [facility]
--- OUTSIDE RECORDS SUMMARY | 2024-12-13 14:59 | XMS_ITS ---
Author Name [facility] [place] Organization [facility] [place] Address [address] [place] [id number] Care Team Providers Care Hemodialysis Charge Nurse Name Role Phone LYDIA VESNA Primary Care Provider Unavailabl e Selected Encounter This section includes the information on record at [place] for the Encounter. Date/Time Encounter Type Encounter Description Reason Provider Source December 10, 2024 12:00 PM OFFICE O/P NEW LOW 30 MIN OPTOMETRY ICD-10-CM H40.013 Open angle with borderline findings, low risk, bilateral OSHINSKIE,GOVIND CHAVO J IHE Encounter Template Text not used by [place] Assessments - Encounter Diagnoses This section includes the primary and secondary diagnoses documented for the Encounter. Date/Time Primary/Secondary Diagnosis Diagnosis Name Provider Source December 10, 2024 01:09 PM PRIMARY Open angle with borderline findings, low risk, bilateral OSHINSKIE,TAWANDA NARD J [place] [facility] [place] [facility] December 10, 2024 01:09 PM SECONDARY Myopia, bilateral OSHINSKIE,TAWANDA NARD J [facility] [place] [facility] December 10, 2024 01:09 PM SECONDARY Other chronic allergic conjunctivitis OSHINSKIE,TAWANDA NARD J [facility] [place] [facility] December 10, 2024 01:09 PM SECONDARY Regular astigmatism, bilateral OSHINSKIE,TAWANDA NARD J [facility] [place] [facility] Plan of Treatment: Future Appointments (+ 6 months) and Future Tests (+/- 45 days) The Plan of Treatment section includes future care activities for the patient from all [facility] treatment[facility]ilities. This section includes future appointments and future orders which are active, pending or scheduled. Future Appointments This section includes appointments that were scheduled to occur 6 months from the date of the Encounter, up to a maximum of 20 appointments. The data comes from all [place] treatment facilities. Appointment Date/Time Appointment Type Appointme nt Facility Name December 14, 2024 01:00 PM AMBULATORY - PSYCHIATRY [facility] December 24, 2024 03:00 PM AMBULATORY - RE[facility]AB [facility] Dec 28, 2024 01:00 PM AMBULATORY - PS[facility]CHIATRY [facility] [place] [facility] Jan 04, 2025 01:00 PM AMBULATORY - PSYCHIATRY [facility] [place] [facility] Jan 05, 2025 10:30 AM AMBULATORY - MEDICINE [facility] [place] [facility] Jan 11, 2025 01:00 PM AMBULATORY - PSYCHIATRY [facility] [place] [facility] Jan 17, 2025 01:00 PM AMBULATORY - PSYCHIATRY [facility] [place] [facility] Feb 01, 2025 01:00 PM AMBULATORY - PSYCHIATRY [facility] [place] [facility] Feb 04, 2025 02:30 PM AMBULATORY - SURGERY [facility] [place] [facility] Feb 08, 2025 01:00 PM AMBULATORY - PSYCHIATRY [facility] [place] [facility] Apr 11, 2025 11:00 AM AMBULATORY - MEDICINE [facility] [place] [facility] Active, Pending, and Scheduled Orders This section includes a listing of several types of active, pending, and scheduled orders, including clinic medications orders, diagnostic test orders, procedure orders and consult orders; where the start date of the order is 45 days before the date of the Encounter or 45 days after the date of theEncounter. The data comes from all [place] treatment [facility]. Test Date/Time Test Type Test Details Facility Name Nov 01, 2024 12:00 AM Laboratory - Chemistry Order HEPATITIS C ANTIBODY (HCV)-ARC BLOOD (MARBLED-TOP SERUM) SP ONCE [facility] [place] [facility] Nov 02, 2024 09:04 AM Consult Order BHIP PSYCHIATRIC MEDICATION/SOPC OUTPT [facility] Librarian's Choice [place] [facility] [place] [facility] Nov 03, 2024 08:54 AM Consult Order COMMUNITY CARE-BH PSYCHOTHERAPY [facility] November 25, 2024 10:11 AM Consult Order CBT-INSOMNIA/SPOPC OUTPT [facility] December 10, 2024 03:42 PM Consult Order COMMUNITY CARE-ORTHO GENERAL [facility] Jan 01, 2025 12:00 AM Laboratory - Chemistry Order LIPID PANEL FASTING BLOOD (SST-SERUM) [facility] Jan 01, 2025 12:00 AM Laboratory - Chemistry Order LIVER FUNCTION BLOOD (SST-SERUM) [facility] Jan 01, 2025 12:00 AM Laboratory - Chemistry Order BASIC METABOLIC PANEL (fasting) BLOOD (SST-SERUM) [facility] Jan 01, 2025 12:00 AM Laboratory - Chemistry Order TSH BLOOD (SST-SERUM) [facility] Jan 01, 2025 12:00 AM Laboratory - Chemistry Order HEMOGLOBIN A1C PANEL BLOOD (LAV-BLOOD) [facility] Jan 01, 2025 12:00 AM Laboratory - Chemistry Order CBC AND DIFF (AUTO) BLOOD (LAV-BLOOD) [facility] Jan 01, 2025 12:00 AM Laboratory - Chemistry Order HIV 1&2 Ag/Ab SCREEN BLOOD (SST-SERUM) [facility] Jan 01, 2025 12:00 AM Laboratory - Chemistry Order HEPATITIS B SURFACE ANTIGEN (HBsAg)- BLOOD (SST-SERUM) [facility] Jan 01, 2025 12:00 AM Laboratory - Chemistry Order HEPATITIS B SURFACE ANTIBODY (HBsAb)- BLOOD (SST-SERUM) [facility] Jan 01, 2025 12:00 AM Laboratory - Chemistry Order GAMMA-GTP BLOOD (SST-SERUM) [facility] Radiology Reports: +/- 30 days of the [...] the Encounter. The data comes from all [place] treatment facilities. Date/Time Radiology Report Provider Source December 03, 2024 12:54 PM MRI KNEE W/O CONTRAST (RIGHT): ADAM BEST [id number] -1990 M Exm Date: DECEMBER 03, 2024@12:54 Req Phys: VESNA ALEXANDER Loc: [facility] PACT 10 MD LUEVANO (Req'g Loc) Img Loc: [facility] MRI Service: Unknown [place] [address] (Case [id number] COMPLETE) MRI KNEE W/O CONTRAST (RIGHT) (MRI Detailed) CPT:76936 Reason for Study: Right knee injury Clinical History: PLEASE NOTE If patient is claustrophobic consider ordering anti-anxiety medication prior to MRI. Safety Assessment: You must answer ALL questions or this questionnaire is not captured. Ordering provider, phone number and beeper:Dr. Vesna Alexander Weight: 229.2 lb [103.96 kg] (11/01/2024 10:38) Height: 70 in [177.8 cm] (11/01/2024 10:38) Creatinine: CREATININE No data available for: CREATININE URINE BUN: BUN No data available Can Radiology order radiographs on your behalf limited to a body area in question for the specific reason of excluding metallic foreign bodies as needed, to ensure safe performance of the MRI study requested: Yes The Radiologist may determine that the administration of oral and/or IV contrast is/or is not required based on clinical history and renal function. If you would like to specifically discuss the protocol please call Radiology at [facility]. Does the patient have any contraindications to MRI? No - Metal in eyes No - Intracranial aneurysm clip/coil No - Pacemaker No - Implanted electronic device No - Cochlear Implant No - Insulin pumps No - Glucose meters Recent Surgeries: No Anything IN or ON your body you were not born with: No Report Status: Verified Date Reported: DECEMBER 03, 2024 Date Verified: DECEMBER 03, 2024 Academic Support Assistant E-Sig:/ES/BING WAGNER JR Report: Study: MRI of [...] body and posterior horn, as described above. Primary Diagnostic Code: No immediate attention required Primary Interpreting Staff: BING WAGNER JR, Radiologist (Academic Support Assistant) /BING BISWAS JR [facility] Nov 17, 2024 01:40 PM OUTSIDE KNEE 2 VIEWS(RIGHT): ADAM BEST [id number] -1990 M Ex Date: NOV 17, 2024@13:40 Req Phys: VESNA ALEXANDER Loc: [facility]/OUTSIDE IMAGING NON-CNT (R Img Loc: [facility] Service: Unknown (Case [id number] COMPLETE) OUTSIDE KNEE 2 VIEWS(RIGHT) (RAD Detailed) CPT:91306 Reason for Study: outside images have been uploaded for continuity of care Clinical History: outside images have been uploaded for continuity of care Report Status: Electronically Filed Date Reported: NOV 17, 2024 Report: THIS EXAM WAS PERFORMED AND INTERPRETED AT AN OUTSIDE HOSPITAL Impression: THIS EXAM WAS PERFORMED AND INTERPRETED AT AN OUTSIDE HOSPITAL Primary Diagnostic Code: VERIFIED BY: / *ELECTRONICALLY FILED* [facility] Encounter Notes: All associated encounter notes This section contains the clinical notes associated to the Encounter. Date/Time Encounter Note(s) Provider Source December 10, 2024 12:04 PM OPTOMETRY NOTE: LOCAL TITLE: OPTOMETRY NOTE STANDARD TITLE: OPTOMETRY NOTE DATE OF NOTE: DECEMBER 10, 2024@12:04 ENTRY DATE: DECEMBER 10, 2024@12:04:28 AUTHOR: SAPNA JOSÉ COSIGNER: URGENCY: STATUS: COMPLETED 34 yo MALE NEW pt here to establish eye care. Relates that he has igor glaucoma suspect at 2 prior eye exams in the past 3-4 yrs. In both cases the eye doctor referred him to a specialist but he did not go due to having no insurance. Eyes get itchy and watery. Seeing well with current glasses Says he feels eye pressure whenever he yells when at a sporting event. Has longstanding floaters denies glare, redness, flashes, diplopia, new DEE + eye injury( )corneal abrasion related to CL wear denies eye surgery( x ) denies family hx of AMD/glaucoma( )unsure does not want DFE today since has to drive Active Problem Gastroesophageal reflux disease K21 04/16/2024 VESNA ALEXANDER NonVA Providers R69. 04/16/2024 VESNA ALEXANDER Exsmoker R69. 04/16/2024 VESNA ALEXANDER Obesity E66.9 04/16/2024 VESNA ALEXANDER Irritable bowel syndrome K58.9 04/16/2024 VESNA ALEXANDER Exercise induced asthma J45.990 04/16/2024 VESNA ALEXANDER Active Outpatient Medications (including Supplies): Active Outpatient Medications Status = 1) DICLOFENAC NA 1% TOP GEL APPLY 2 GRAMS TOPICALLY FOUR TIMES ACTIVE A DAY FOR OSTEOARTHRITIS - USE DOSING CARD PROVIDED IN BOX Indication: FOR JOINT PAIN 2) FAMOTIDINE 20MG TAB TAKE ONE TABLET BY MOUTH TWICE DAILY ACTIVE FOR STOMACH ACID Indication: FOR GASTROESOPHAGEAL REFLUX DISEASE Active Non-VA Medications Status = 1) Non-VA ALBUTEROL 90MCG (CFC-F) 200D ORAL INHL 2 PUFFS BY ACTIVE MOUTH EVERY 4 HOURS NEEDED 2) Non-VA DICYCLOMINE HCL 10MG CAP 10MG BY MOUTH ONCE DAILY ACTIVE 4 Total Medications allergies: DIPHENHYDRAMINE, APPLES, AMOXICILLIN, AZITHROMYCIN, CLINDAMYCIN, LACTOSE LEVOFLOXACIN, NAPROXEN, PENICILLIN, SULFA DRUGS, ASPIRIN RELATED MEDICATIONS SERTRALINE, NONSTEROIDAL ANTI-INFLAMMATORY, CODEINE PHOSPHATE HEMOGLOBIN A1C TREND No data available [facility] with OD 20/20 OS 20/20 current Rx OD -1.50-3.72i550 OS -2.50-0.59h250 refraction OD -1.25-3.85r582 20/15 OS -2.50-0.40s949 20/15 pupils: PERRL - RAPD OU EOM: full OU Conf: full OU near cover test ortho slit lamp cornea clear OU no K spindle OU no signs of [place] AC D and Q OU lids/lashes clear OU iris no tids OU conj bulbar white OU palpebral clear OU angles gr 4 IOP OD 21 OS 21 time: 12:15 pm undilated exam c/d OD 0.6 OS 0.4 disc color pink OU disc margins distinct ou A 1)glaucoma suspect, low risk -open angle with borderline findings, low risk, bilateral 2) myopia and regular astigmatism 3) allergic conjunctivitis OU P 1) Pt will return in 6 months for VF, OCT and DFE 2) order glasses 3) patanol 0.2% once daily Total time spent reviewing on chart review, reviewing and taking history, performing the examination, evaluating any ancillary testing and counseling patient as well as entering orders for medications or optical devices including medical decision making was 33 minutes 3 minutes for refraction (if applicable) = total of 30 minutes med reconciliation: All Ophthalmic medications were reconciled ( x ) ( ) pt is not taking any ophthalmic medications ( ) the following ophthalmic meds were discontinued: pt deferred receiving list of medications Glaucoma: Patient was educated regarding glaucoma/glaucoma suspect as well as the natural history of this diagnosis including prognosis. Stress importance of compliance and persistency with glaucoma medication when prescribed, timely follow up as well as the role of ancillary testing. Exclusion criteria for ancillary testing include significantly reduced acuity, mental status changes affecting the patient's ability to attend to the test or other physical limitations that would prohibit the patient's ability to participate in testing. EYE: Visual Function Reminder: Normal Vision: 20/25 or better: Unspecified disorder of refraction or accommodation (367.9). Medication Reconciliation: Patient reports taking no medications. Meds were not prescribed, modified, nor influenced the care given at this encounter. /clay/ Sapna José OD [employer] Bus Driver Signed: 12/10/2024 13:10 [facility]É [facility]
--- OUTSIDE RECORDS SUMMARY | 2024-12-13 14:59 | XMS_ITS | Encounter Summary ---
Author Name [facility] [place] Organization [facility] [place] Address [address] [place] [id number] Care Team Providers Care Decorating Instructor Name Role Phone FAMILIA ALEXANDERA Primary Care Provider David edwards Selected Encounter This section includes the information on record at [place] for the Encounter. Date/Time Encounter Type Encounter Description Reason Provider Source November 25, 2024 08:30 AM PSYCH DIAGNOSTIC EVALUATION MENTAL [facility] - IND ICD-10-CM F41.1 Generalized anxiety disorder MALGORZATATHUYI Inocencio Encounter Template Text not used by [place] Assessments - Encounter Diagnoses This section includes the primary and secondary diagnoses documented for the Encounter. Date/Time Primary/Secondary Diagnosis Diagnosis Name Provider Source November 25, 2024 10:58 AM PRIMARY Generalized anxiety disorder MALGORZATASHANKAR LUIS CARLOS November 25, 2024 10:58 AM SECONDARY Panic disorder [episodic paroxysmal anxiety] SHANKAR LYNN [facility] Plan of Treatment: Future Appointments (+ 6 months) and Future Tests (+/- 45 days) The Plan of Treatment section includes future care activities for the patient from all [place] treatmentfacilities. This section includes future appointments and future orders which are active, pending or scheduled. Future Appointments This section includes appointments that were scheduled to occur 6 months from the date of the Encounter, up to a maximum of 20 appointments. The data comes from all [place] treatment facilities. Appointment Date/Time Appointment Type Appointme nt Facility Name November 30, 2024 01:00 PM AMBULATORY - [facility]AB [facility] December 03, 2024 01:00 PM AMBULATORY - NONE [place] [facility] [place] [facility] December 07, 2024 01:00 PM AMBULATORY - REHAB MEDICIN E [facility] December 10, 2024 12:00 PM AMBULATORY - MEDICINE [place] [facility] [place] [facility] December 14, 2024 01:00 PM AMBULATORY - PSYCHIATRY SP [facility] December 24, 2024 03:00 PM AMBULATORY - REHAB MEDICIN E [facility] Dec 28, 2024 01:00 PM AMBULATORY - PSYCHIATRY [facility] [place] [facility] Jan 04, 2025 01:00 PM AMBULATORY - PSYCHIATRY [facility] [place] [facility] Jan 05, 2025 10:30 AM AMBULATORY - MEDICINE [facility] [place] [facility] Jan 11, 2025 01:00 PM AMBULATORY - PSYCHIATRY [facility] [place] [facility] Jan 17, 2025 01:00 PM AMBULATORY - PSYCHIATRY [facility] [place] [facility] Feb 01, 2025 01:00 PM AMBULATORY - PSYCHIATRY [facility] [place] [facility] Feb 04, 2025 02:30 PM AMBULATORY - SURGERY [facility] [place] [facility] Feb 08, 2025 01:00 PM AMBULATORY - PSYCHIATRY [facility] [place] [facility] Apr 11, 2025 11:00 AM AMBULATORY - MEDICINE [facility] [place] [facility] Active, Pending, and Scheduled Orders This section includes a listing of several types of active, pending, and scheduled orders, including clinic medications orders, diagnostic test orders, procedure orders and consult orders; where the start date of the order is 45 days before the date of the Encounter or 45 days after the date of theEncounter. The data comes from all [place] treatment facilities. Test Date/Time Test Type Test Details Facility Name Nov 01, 2024 12:00 AM Laboratory - Chemistry Order HEPATITIS C ANTIBODY (HCV)-ARC BLOOD (MARBLED-TOP SERUM) SP ONCE [facility] [place] [facility] Nov 02, 2024 09:04 AM Consult Order BHIP PSYCHIATRIC MEDICATION/SOPC OUTPT Cons [facility] [place] [facility] Nov 03, 2024 08:54 AM Consult Order COMMUNITY CARE-BH PSYCHOTHERAPY [facility] November 25, 2024 10:11 AM Consult Order CBT-INSOMNIA/SPOPC OUTPT [facility] December 10, 2024 03:42 PM Consult Order COMMUNITY CARE-ORTHO GENERAL Cons [facility] [place] [facility] Jan 01, 2025 12:00 AM Laboratory - Chemistry Order LIPID PANEL FASTING BLOOD (SST-SERUM) [facility] Jan 01, 2025 12:00 AM Laboratory - Chemistry Order LIVER FUNCTION BLOOD (SST-SERUM) [facility] Jan 01, 2025 12:00 AM Laboratory - Chemistry Order BASIC METABOLIC PANEL (fasting) BLOOD (SST-SERUM) [facility] Jan 01, 2025 12:00 AM Laboratory - Chemistry Order TSH BLOOD (SST-SERUM) [facility] Jan 01, 2025 12:00 AM Laboratory - Chemistry Order HEMOGLOBIN A1C PANEL BLOOD (LAV-BLOOD) [facility] Jan 01, 2025 12:00 AM Laboratory - Chemistry Order CBC AND DIFF (AUTO) BLOOD (LAV-BLOOD) [facility] Jan 01, 2025 12:00 AM Laboratory - Chemistry Order HIV 1&2 Ag/Ab SCREEN BLOOD (SST-SERUM) [facility] Jan 01, 2025 12:00 AM Laboratory - Chemistry Order HEPATITIS B SURFACE ANTIGEN (HBsAg)- BLOOD (SST-SERUM) [facility] Jan 01, 2025 12:00 AM Laboratory - Chemistry Order HEPATITIS B SURFACE ANTIBODY (HBsAb)- BLOOD (SST-SERUM) [facility] Jan 01, 2025 12:00 AM Laboratory - Chemistry Order GAMMA-GTP BLOOD (SST-SERUM) [facility] Social History: Smoking Status (Most current) and Tobacco Use (All prior to encounter date) This section includes the most current, and the historical, smoking and tobacco- related health factors from the [place] facility where the Encounter took place. Current Smoking Status This section includes the most current smoking, or tobacco-related health factor, from the [place] facility where the Encounter took place. Date/Time Current Smoking Status Comment Facil ity Apr 16, 2024 11:00 AM [place]-TOBACCO FORMER USER [facility] Tobacco Use History This section includes a history of the smoking, or tobacco-related health factors, that were collected on or before the date of the Encounter. The data comes from the [place] facility where the Encounter took place. Date/Time Smoking Status/Tobacco Use Comment F debbie Apr 16, 2024 11:00 AM [place]-TOBACCO QUIT 5 TO < 15 YRS [facility] Radiology Reports: +/- 30 days of the [...] the Encounter. The data comes from all [place] treatment facilities. Date/Time Radiology Report Provider Source December 03, 2024 12:54 PM MRI KNEE W/O CONTRAST (RIGHT): ADAM BEST [id number] -1990 M Ex Date: DECEMBER 03, 2024@12:54 Req Phys: VESNA ALEXANDER Pat Loc: [facility] PACT 10 MD LUEVANO (Req'g Loc) Im Loc: [facility] MRI Service: [facility] [place] [address] (Case [id number] COMPLETE) MRI KNEE W/O CONTRAST (RIGHT) (MRI Detailed) CPT:56581 Reason for Study: Right knee injury Clinical [...] 03, 2024 Date Verified: DECEMBER 03, 2024 Quality Assurance Supervisor Body E-Sig:/ES/BING WAGNER JR Report: Study: MRI of [...] Primary Interpreting Staff: BING WAGNER JR, Radiologist (Quality Assurance Supervisor Body) /BING BISWAS JR [place] [facility] [place] [facility] Nov 17, 2024 01:40 PM OUTSIDE KNEE 2 VIEWS(RIGHT): ADAM BEST [id number] -1990 M Exm Date: NOV 17, 2024@13:40 Req Phys: VESNA ALEXANDER Loc: [facility]/OUTSIDE IMAGING NON-CNT (R Img Loc: OUTSIDE GENERAL RADIOLOGY Service: Unknown (Case [id number] COMPLETE) OUTSIDE KNEE 2 VIEWS(RIGHT) (RAD Detailed) CPT:12500 Reason for Study: outside images have been uploaded for continuity of care Clinical History: outside images have been uploaded for continuity of care Report Status: Electronically Filed Date Reported: NOV 17, 2024 Report: THIS EXAM WAS PERFORMED AND INTERPRETED AT AN OUTSIDE HOSPITAL Impression: THIS EXAM WAS PERFORMED AND INTERPRETED AT AN OUTSIDE HOSPITAL Primary Diagnostic Code: VERIFIED BY: / *[facility]LECTRONICALLY FILED* [facility] Nov 01, 2024 01:19 PM SPINE CERVICAL, 4 OR 5 VIEWS: ADAM BEST [id number] -1990 M Exm Date: NOV 01, 2024@13:19 Req Phys: VESNA ALEXANDER Loc: [facility] PACT 10 MD LUEVANO (Req'g Loc) Im Loc: [facility] 1 Service: [facility] [place] [address] (Case [id number] COMPLETE) SPINE CERVICAL, 4 OR 5 VIEWS (RAD Detailed) CPT:46522 Reason for Study: neck pain Clinical History: with left arm radiculopathy Report Status: Verified Date Reported: NOV 01, 2024 Date Verified: NOV 01, 2024 Quality Assurance Supervisor Body E-Sig:/ES/BING WAGNER JR Report: Study: AP, lateral [...] Primary Interpreting Staff: BING WAGNER JR, Radiologist (Quality Assurance Supervisor Body) /BING BISWAS JR [place] [facility] [place] [facility] Encounter Notes: All associated encounter notes This section contains the clinical notes associated to the Encounter. Date/Time Encounter Note(s) Provider Source November 30, 2024 08:24 AM MENTAL HEALTH DIAG NOSTIC STUDY NOTE: LOCAL TITLE: MENTAL HEALTH DIAGNOSTIC STUDY STANDARD TITLE: MENTAL HEALTH DIAGNOSTIC STUDY NOTE DATE OF NOTE: NOVEMBER 30, 2024@08:24:56 ENTRY DATE: NOVEMBER 30, 2024@08:24:56 AUTHOR: SHANKAR LYNN COSIGNER: URGENCY: STATUS: COMPLETED Assessments were sent to the [facility] via text/email. These assessments were completed by ADAM BEST on their own device on 11/26/2024 11:41:03 AM. PATIENT HEALTH QUESTIONNAIRE-9 (PHQ-9) The patient reported some symptoms of depression; symptoms are not consistent with a major depressive episode. Patient reported being bothered by the following over the last 2 weeks: 1. Little interest or pleasure: Several Days 2. Feeling down, depressed or hopeless: Several Days 3. Trouble sleeping: Nearly every day 4. Tired, low energy: More than half the days 5. Poor appetite, over-eating: Not at all 6. Feelings of failure, guilt: Several Days 7. Trouble concentrating: Several Days 8. Motor retardation, agitation: Not at all 9. Thoughts better off /hurting self: Not at all PHQ-9 total score = 9 1-4 = minimal symptoms 5-9= mild symptoms 10-14= moderate symptoms 15-19= moderately severe symptoms 20-27= severe depressive symptoms The patient stated that the depressive symptoms made it extremely difficult to work, take care of things at home, or get along with others. GENERAL ANXIETY DISORDER-7 (SUDARSHAN-7) Patient reported being bothered by the following over the last two weeks: 1. Feeling nervous, anxious or on edge: Nearly every day 2. Not being able to stop or control worrying: Nearly every day 3. Worrying too much about different things: Nearly every day 4. Trouble relaxing: Nearly every day 5. Feeling restless (hard to sit still): Nearly every day 6. Becoming easily annoyed or irritable: Several days 7. Afraid as if something awful might happen: More than half the days SUDARSHAN-7 total score = 18 0-4=minimal symptoms 5-9=mild symptoms 10-14=moderate symptoms 15-21=severe symptoms The patient stated that the anxiety symptoms made it very difficult to work, take care of things at home, or get along with others. INSOMNIA SEVERITY INDEX (KYLEIGH) Patient reported the severity of insomnia problems in the last two weeks as follows: 1. Difficulty falling asleep: Very Severe 2. Difficulty staying asleep: Very Severe 3. Problems waking up too early: Very Severe 4. Satisfaction with sleep: Very Dissatisfied 5. Impaired quality of life noticeable to others: Very Much Noticeable 6. Distressed by sleep problems: Very Much Worried 7. Interference with daily functioning: Very Much Interfering KYLEIGH total score = 28 0-7 = No clinically significant insomnia 8-14 = Subthreshold insomnia 15-21 = Clinical insomnia (moderate severity) 22-28 = Clinical insomnia (severe) /clay/ Shankar Lynn PhD LP RUST Coordinator and Staff Psychologist Signed: 11/30/2024 08:34 SHANKAR LYNNFIELD November 25, 2024 08:33 AM MENTAL HEALTH CONS ULT: LOCAL TITLE: CONSULT REPORT/UNIFORM OUTPATIENT MENTAL HEALTH ASS STANDARD TITLE: MENTAL HEALTH CONSULT DATE OF NOTE: NOVEMBER 25, 2024@08:33 ENTRY DATE: NOVEMBER 25, 2024@08:33:11 AUTHOR: SHANKAR LYNN EXP COSIGNER: URGENCY: STATUS: COMPLETED INFORMED CONSENT TO PARTICIPATE IN ASSESSMENT: At beginning of session reviewed rights and limits of confidentiality, mandatory reporting situations, duty to warn and protect, Drake Warning, (if treatment team finds patient to be an acute danger to himself or others, that this information could be relayed to a court of law and presented to a information support project manager), and DOD access for active duty service members. Provided Suicide Prevention Hotline number, and other contact numbers as necessary. Uniform Outpatient Mental Health Assessment I. IDENTIFYING INFORMATION: ADAM BEST May [id number] SERVICE CONNECTED % - 90 MARITAL STATUS - NEVER Referral source: Primary care Present at time of intake: [place] [X] Family member [ ] Supportive person(s) Name: Language Preference:Kyrgyz Language Spoken:Other: Understand divehi II. PRESENTING SITUATION: A. What brings you into Mental Health at this time: Anxiety- certain times throughout the day, i have anxiety attacks. Not brought on by anything in particular, I can just be working and out of nowhere I get hit by a wave of anxiety. I feel like I'm having a heart attack. I'll walk out. I feel like the world is closing in. That's not the only time. I think a lot too and I'll give myself anxiety attack. My heart will start racing. Any type of situation where I have to make a decision. It sucks because I dont know how to control it. I have tried breathing techniques and change my thoughts. Sometimes it works, sometimes it doesn't. I've tried drinks with magnesium and stuff like that and then it happens again. On average 4-5 times a day. Sometimes minutes 10 minutes to 30 minutes. Sometimes I can continue, sometimes exhausted. I'm in school and sometimes I get anxiety so bad I cant focus on my work. With deadlines, I tend to mess up because I have an anxiety attack about that. 10-12 years ago. Used to be less frequent. First time I thought I was having a heart attack and I didn't know what it was. I think I went tot he ER for it. I was given zoloft- made me feel down, I saw weird colors. I'm sick of it and it's getting worse, more frequent, I dont sleep a lot. Impairment: I miss work because of it. I miss out on social things with family and friends. I miss out on early appointments because I don't sleep. [employer] is difficult for me. Flying is difficult. I think of the worst case scenarios. I call my kid a million times when I'm working even though he's 16 years old. I worry a lot. On my days off, I don't leave my house too much. I go to the [employer] and sometimes I'll putthat off because I dont want to leave the house. I do food shopping- I have panic attacks in the super market, several times. I've left my cart, left my gf and son in there. Whenever I have to make a decision, it's very difficult and I tend to lash out. Even what's for dinner, can trigger it. A lot of fear. Worrying about all the things in my life. I think about losing family members, how I can lose them at any time. Think about health, finances, son, work, school, worry about it. Lost bunch of people recently. Sleep- all over the place after 3am. I wake up in a panic. I had a night terrors. I've woken up in my closet too. I don't like touching stuff- I get grossed out. If I can't watch my hands right away. I'm not afraid of getting sick, I just get grossed out. I dont like using public restrooms. I worry I didn't lock the door, I worry I didn't turn off the stove. I need to check. I'll call my dad to check to make sure the stove is off. B. What are some of your goals for treatment: Less anxiety attacks, more positive thoughts, Less lashing out about dumb things, less defensive. C. What are some of your strengths: Caring, tend to by empathetic. I carry a lot of other people's issues. D. What are the obstacles or challenges preventing you from meeting your goals?: My own thought process, self sabotage. Zoloft- very odd colors when taking it and driving at night. III: ASSESSMENT: A. Do you have concerns about past or current mental health symptoms or problems: Yes [X] No [ ] If yes, please describe: 10 year anxiety. Normal teenager. No problems with NAT. Smoke cigarettes for 10 years in 2019. Anxiety started around in the . How do you see these concerns impacting past and current quality of life (School, Work, Family, Housing, Finances, Social life, Legal): School- focus becomes an issue. Deadlines are very stressful and can make me panic. Online classes. Social life- more isolating, skipping things because of anxiety. Work- anxiety attacks Family- irritable and angry, lash out B. Have you previously been involved in Mental Health treatment: Yes [X] No [ ] If yes, please check all that apply and describe: [ ] Hospitalizations (when, where, etc.): [X] Medication trials (what, when, doses, etc.): Zoloft- bad reaction, saw bright colors after taking it, and felt weird. No other medications for MH. Natural stuff- magnesium drinks Sleep aid drinks- HANNAH melatonin. Melatonin- didnt help me sleep and only helped me wake up earlier but I wasn't getting more sleep. It made my migraines worse. CBD and cannabis gave me more anxiety- didn't work. [X] Therapy trials (type, when, etc.): 2017- I just stopped going, it didn't do anything for me. A went for a few months. C. Do you have concerns about current or past substance use: Yes [ ] No [X] If yes, please identify 's primary and secondary substances of choice: IV: PERSONAL HISTORY/INFORMATION: A. Biological/Social History (including: relevant developmental history, family of origin, sexual/physical/emotional traumas, cultural factors, applicable sexual history): Dad is from [place], I'm from [place] born and raised. Both my parents and two brothers were in the house growing up, and cats that I'm allergic to. One older, one younger. Younger brother has anxiety but he connects it to army service. Nothing traumatic or difficult, good childhood. Had friends growing up and still friends with friends. School: Could have done better but dropped out and got GED, never a fan of school to be honest. No problems with learning or focus as a kid. Disciplinary- got suspended on purpose to get out of school. Nothing bad. I wasnt a fan of the work, I felt like i wasn't being challenged. I was always good at test taking. I played sports- baseball and football. Had a girlfriend. 16 year old son from prior relationship. Currently live with brother, and sons transit mixer operator. Girlfriend lives with us too. Passing of family members- cousin 2015, lost both grandparents who I was close to, 2 uncles , 2022- dad's twin's brother was murdered. He had a drinking problem, was paralyzed for a whole year on life support. He was like a second father to me. Role model. My dad's never been the same. I worry constantly about my dad's health and mental health. B. 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 No disciplinary but I would miss drills because of anxiety and I'd have to make them up. I had to switch units and they didn't even have my MOS there, I was alone for hours. Being made fun of for birthmark on my face, it was just annoying. Being hazed a lot when I got to my unit. Made fun of, called radio. C. What provides you with sense of value or quality of life: Family, relationship. D. What are some accomplishments that you feel a sense of pride about: Raising my kid- I did it on my own, with help from my family. I was 18 and his mom was never around. Going back to school- I was scared, it's difficult but I'm doing it. I'm more than half waydone with my degree. E. What brings you enjoyment: Baseball rich but haven't been able to play because of injuries. I can't play physically because of my injuries. I dont think I'll be able to play again, which impacts my mental health. It helps with the anxiety, but I can't do it. Traveling- love to travel. but the anxiety gets in the way, but I just distract myself. F. Are you comfortable with your current living arrangement (Have you ever been homelessness or at risk for homelessness): Rent an apartment. Stable. Rent with my brother. G. What are your social or community Supports, your healthy or positive relationships: Family, friends from childhood. H: What is your educational history or current goals: Business degree, I want to own my own business. Online school. I. 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 Do you have a legal history (incarcerations, probation, parole, divorce, child custody issues): None K. What is your level of yazdanism or spiritual fulfillment: Yazidism, just got son baptised. L. How do you culturally identify? Can you anticipate any particular cultural on treatment? Mosotho M. Is there anybody you would like involved in the planning or delivery of your care: no N. Do you have concerns for your safety or the safety of others (domestic violence, abuse/neglect, etc): no O. Have you ever been in a situation where you felt you were taken advantage of or exploited, particularly by someone in a position of power? . Got the worst jobs. Not sexual. P. 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 PHYSICAL HEALTH SCREENING A. Do you have any past or current medical concerns: Yes [X] No [ ] Active Problem Gastroesophageal reflux disease K21 04/16/2024 VESNA ALEXANDER NonVA Providers R69. 04/16/2024 VESNA ALEXANDER Exsmoker R69. 04/16/2024 VESNA ALEXANDER Obesity E66.9 04/16/2024 VESNA ALEXANDER Irritable bowel syndrome K58.9 04/16/2024 VESNA ALEXANDER Exercise induced asthma J45.990 04/16/2024 VESNA ALEXANDER Other medical problems not listed above: B. Date of last physical exam:[X}Unknown C.Are you experiencing pain: Rating (0-10: 6 Comment on pain rating: Back neck knees hips shoulders, I get migraines. I manage to get exercise but everytime I go to the gym, I get injured. Right now I'm in PT for neck. I need to take it easy for now. D. Nutritional screening - Have you experienced any of the following: Food Allergies? No, describe: Significant (+/- 10lbs) gain or loss in the last three months? No, describe: Decrease in food intake/appetite? No, describe: Notable Dental problems? No, describe: Significant change in eating habits (purging, restricting, etc.)? No, describe: E. How do you see these concerns impacting on past and current quality of life (School, Work, Family, Housing, Finances, Social life, Legal, etc): Active Outpatient Medications (including Supplies): CYCLOBENZAPRINE HCL 5MG TAB TAKE ONE TABLET BY MOUTH THREE ACTIVE TIMES DAILY NEEDED Indication: FOR MUSCLE SPASM DICLOFENAC NA 1% TOP GEL APPLY 2 GRAMS TOPICALLY FOUR ACTIVE TIMES A DAY FOR OSTEOARTHRITIS - USE DOSING CARD PROVIDED IN BOX Indication: FOR JOINT PAIN FAMOTIDINE 20MG TAB TAKE ONE TABLET BY MOUTH TWICE DAILY ACTIVE FOR STOMACH ACID Indication: FOR GASTROESOPHAGEAL REFLUX DISEASE Non-VA ALBUTEROL 90MCG (CFC-F) 200D ORAL INHL 2 PUFFS BY ACTIVE MOUTH EVERY 4 HOURS NEEDED Non-VA DICYCLOMINE HCL 10MG CAP 10MG BY MOUTH ONCE DAILY ACTIVE 5 Total Medications : MENTAL STATUS / SUBJECTIVE COMPLAINTS: (check all that apply): Appearance:Unremarkable, Neatly groomed, Appropriate to season Behavior:Appropriate, Pleasant Mood/Affect:Normal Energy:Lethargic3-4 hours of sleep a night. Nap rarely. Up throughout the night. I wake up constantly. Wake up in a panic. Sometimes a nightmare. Sleep:Sleep onset insomnia, Frequent disruption Orientation: Oriented to person: Yes Oriented to place: Yes Oriented to time: Yes Stream of thought:Normal, No evidence of thought disorder, No overt psychosis, Denies Flashbacks, Denies Auditory/Visual Hallucinations Speech:Normal Insight / Judgment:Normal Other cognitive problems:Cognition intact, Logical and Linear, Memory sufficient for interview Relevant Observations, other notes: Deny SI, HI. No past attempts. I get frustrated but not to that point. 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 He presents for care related to severe anxiety and panic attacks that impact many aspects of his life. He reports an average for 3-4 panic attacks per day, which last between 10 and 30 minutes, and including racing heart, feeling like he is dying, shaking, sweating, feeling like the world is closing in on him, deep dread and fear. They occur without a clear trigger, in many different contexts (work, home, market, sleep, school), and also occur at night during sleep. 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 Anne also reports generalized anxiety about the health of his family, the safety of his 16 year old son, future stressors, finances, schoolwork, etc. He reports he becomes so anxious prior to a deadline for school that he cannot focus or read and is late on assignments. He also reports concerns about things being unclean, checking locks and to make sure the stove is off. Anne also reports insomnia (3-4 hours of sleep per night) as well as chronic pain (pain 6/10 today) from back, knee, shoulders, hips. Anne is hesitant about medications. He trialed zoloft in the past and had strange side effect of seeing vivid colors, especially while driving at night, which was disturbing to him. He has not trialed other medications, including medications for sleep. He has trialed melatonin, magnesium drinks, CDB and THC (worsened anxiety) on his own. Anne does not use substances and denies SI, HI, hallucinations, delusions, brooke. VIII: NEXT STEPS: A: How can we work to meet your goals: Community care for therapy- I will try it and grand traverse back if it's not what I need. Medications- hesitant but want to hear what's available CBT-I- accepted referral CBT-Chronic pain- interested in the future. B: What would like to see happen next: Referrals. C: Recommendations: CBT for panic disorder CBT-chronic pain in the future. Consider medical evaluation of anxiety eg thyroid check [X]Provided psychoeducation on the role of Measurement Based Care (MBC)and administered the following measures: PHQ-9, KYLEIGH, SUDARSHAN-7 [X]Informed Consent for [facility] [place] [facility] ([facility]) Standard Documentation [facility] Clinician Resources Only: E911 (Emergency Call Relay Center): [phone] National Veterans Crisis Line - 988 then press #1. [facility] Suicide Coordinator [phone], Ext. [phone]; Back-up Ext. [phone] [place] Police, GARETH, Tony [phone] Introduction: Visit is being conducted by [facility]. [place] identified with 2 identifiers: [X] Full Name [X] Date of [ ] [place] ID Card Emergency Plan: [place] confirmed and/or provided the following information in case of emergency or technology failure. PATIENT PHONE - PHONE NUMBER [CELLULAR] - Is patient phone number correct, if not, enter below: 's phone number: ADAM BEST [address] [place], [place], [address] [place]'s present location and address for appointment: as above [place]'s emergency contact name and phone number: as in chart [place] reported that location is private and safe: Yes Informed Consent: [place] informed of the risks and benefits of Telehealth video care. [place] has the right to refuse video services. If refuses video visit, a [id number] visit will be scheduled. verbalized consent for this video visit: Yes [place] provided consent for any other persons present for visit: N/A If yes, who and relationship to patient: Secure visit: Visit was locked for security and privacy:Yes Does this visit involve laterality/specific side of body? N/A /clay/ Shankar Lynn PhD LP [facility] Coordinator and Staff Psychologist Signed: 11/25/2024 10:59 SHANKAR LYNN PILGRIM
--- OUTSIDE RECORDS SUMMARY | 2024-12-13 14:59 | XMS_ITS | Encounter Summary ---
Author Name [facility] Organization [facility] Address [address] [place] [id number] Care Team Providers Care Marketing Development Representative Name Role Phone MANNY FREEMAN Primary Care Provider Unavailabl e Selected Encounter This section includes the information on record at [place] for the Encounter. Date/Time Encounter Type Encounter Description Reason Provider Source Apr 16, 2024 11:00 AM OFFICE O/P NEW LOW 30 MIN PRIMARY CARE/MEDICINE ICD-10-CM K21.9 Gastro-esophageal reflux disease without esophagitis MANNY FREEMAN Encounter Template Text not used by [place] Assessments - Encounter Diagnoses This section includes [...] care activities for the patient from all [place] treatmentfacilities. This section includes future appointments and future orders which are active, pending or scheduled. Future Appointments This section includes appointments that were scheduled to occur 6 months from the date of the Encounter, up to a maximum of 20 appointments. The data comes from all [place] treatment facilities. Appointment Date/Time Appointment Type Appointme nt Facility Name Aug 19, 2024 12:45 PM AMBULATORY - MEDICINE [facility] ZANDRA WSANIL RAMIREZ [facility] Aug 30, 2024 11:00 AM [facility]ORY - [facility] Sep 10, 2024 01:00 PM [facility]ATORY - [facility] Social History: Smoking Status (Most current) and Tobacco Use (All prior to encounter date) This section includes the most current, and the historical, smoking and tobacco- related health factors from the [place] facility where the Encounter took place. Current Smoking Status This section includes the most current smoking, or tobacco-related health factor, from the [place] facility where the Encounter took place. Date/Time Current Smoking Status Comment Vishal leach Apr 16, 2024 11:00 AM VA-TOBACCO FORMER USER [place] Tobacco Use History This section includes a history of the smoking, or tobacco-related health factors, that were collected on or before the date of the Encounter. The data comes from the [place] facility where the Encounter took place. Date/Time Smoking Status/Tobacco Use Comment F acility Apr 16, 2024 11:00 AM VA-TOBACCO QUIT 5 TO < 15 YRS [place] Encounter Notes: All associated encounter notes This [...] 33 yo MALE who presents at the [facility] as a new pt visit. No prior medical records available. New pt packet filled out. He maintains a nonVA PCP: Dr Norris Villasenor at [facility] in [place]. 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 IBS: on dicyclomine [...] this VA (local) and dispensed from another [place] or DoD facility (remote) as well as [...] FACILITY ALLERGY/ADR -------- [facility] [place] REPT EFF [id number] [place] [facility] REPT EFF [id number] [facility] [place] [facility] [...] [facility] [place] [facility] Med Recon [facility] (Tool #1) INCLUDED IN THIS LIST: Alphabetical list of active outpatient prescriptions dispensed from this VA (local) and dispensed from another [place] or DoD facility (remote) as well as inpatient orders (local pending and active), local clinic medications, locally documented non-VA medications, and local prescriptions that have or been discontinued in the past 90 days. Non-VA Meds Last Documented On: Apr 16, 2024 NOTE The display of VA prescriptions dispensed from another [place] or [facility] facility (remote) is limited to active outpatient prescription entries matched to National Drug File at the originating site and may not include some items such as investigational drugs, compounds, etc. NOT INCLUDED IN THIS LIST: Medications self-entered by the patient into personal health records (i.e. [employer]) are NOT included in this list. Non-VA medications documented outside this [place], remote inpatient orders (regardless of status) and [...] of his/her rights. Suicide Screen: C-SSRS Screening [employer] Suicide Severity Rating Scale (C-SSRS) screener 1. 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 [place] has no concerns about toxic exposure(s) while serving in the Armed Forces. The [place]/caregiver was informed that we will continue to [...] Not worried about housing near future The [place] reports the following: Within the past 12 [...] caregiver's preferred language for healthcare? Preferred Language: [place] PTSD Screening: PC-PTSD-5 A PTSD screening test [...] due to responses to other questions. 5. [place] numb or detached from people, activities, or your surroundings? Response not required due to responses to other questions. 6. [place] guilty or unable to stop blaming yourself [...] full rights to use it throughout the [place] system. PRIMARY SCREEN RESULT: The Primary Screen [...] PACT 10 Signed: 04/16/2024 11:29 ELLE ALLEN [place]
--- OUTSIDE RECORDS SUMMARY | 2024-12-13 14:59 | XMS_ITS | Continuity of Care Document ---
Author Name [facility] Organization [facility] Care Team Providers Care Hitch Technician Name Role Phone [facility] Unavailable Unavailable Problems Combined list of problems from Department of Defense and Veterans Affairs facilities. It does not include entries that were removed or entered in error. Problem Status Onset Date Problem Type Date of Resolution Comments Source joint pain in the right knee Inactive Condition DoD muscle cramps in the calf Active Condition DoD GASTROENTERITIS Active Condition DoD BRONCHITIS Inactive Condition DoD UPPER RESPIRATORY INFECTION Inactive Condition DoD DISORDERS OF MUSCLE, LIGAMENT, AND FASCIA Active Condition DoD limb pain Active Condition Do[facility] HIP SPRAIN HAMSTRING INSERTION Inactive Condition [facility] ILIOTIBIAL BAND FRICTION SYNDROME Active Condition Do[facility] joint pain, localized in the wrist Active Condition [facility] joint pain, localized in the shoulder Active Condition [facility] Other Physical Therapy Active Condition [facility] Need For Vaccination Hepatitis B Inactive Condition [facility] Need For Vaccination MMR Inactive Condition [facility] visit for: ears / hearing exam Active Condition [facility] visit for: services physical Active Condition [facility] REFRACTIVE ERROR Active Condition [facility] Exercise induced asthma Active Condition [place] Exsmoker Active Condition Apr 16 Entered By: MANNY FREEMAN Comment: Smoked 10 yrs - Quit 2018 [place] Gastroesophageal reflux disease [facility] Irritable bowel syndrome Active Condition [place] NonVA Providers Active Condition Apr 16, 2024 Entered By: MANNY FREEMAN Comment: PCP: Dr Desai 2023 Entered By: MANNY FREEMAN Comment: Orthopedics: Dr Saravia 2023 Entered By: MANNY FREEMAN Comment: Gastroentero logy: Dr Humphries [place] Obesity Active Condition [place] Diagnosis: ICD-10-CM H40.013 Open angle with borderline findings, low risk, bilateral Active Diagnosis [facility] Diagnosis: ICD-10-CM M54.2 Cervicalgia Active Diagnosis [place] Diagnosis: ICD-10-CM Z59.10 Inadequate housing, unspecified Active Diagnosis [facility] Diagnosis: ICD-10-CM F41.1 Generalized anxiety disorder Active Diagnosis [place] Diagnosis: ICD-10-CM Z71.89 Other specified counseling Active Diagnosis [place] Diagnosis: ICD-10-CM M25.569 Pain in unspecified knee Active Diagnosis [place] Diagnosis: ICD-10-CM K21.9 Gastro-esophageal reflux disease without esophagitis Active Diagnosis [place] Medications Combined list of outpatient medications from Department of Defense and Veterans Affairs facilities.Medications provided include 1) outpatient medications from the last 15 months, and 2) patient-reported medications. Medication Details Route Status Patient Instructions Prescription Expires Prescription Number Last Dispense Date Ordering Provider Order Date Order Qty Source ALBUTEROL 90MCG/ACTUA T (CFC-F) INHL,ORAL,8 .5GM DOSE COUNTER INHALE 2 PUFFS BY MOUTH EVERY 4 HOURS NEEDED RESPIR ATORY (INHAL ATION) ACTIVE GRACE FREEMAN SA 2023 [place] CYCLOBENZAP RINE HCL 5MG TAB TAKE ONE TABLET BY MOUTH THREE TIMES DAILY NEEDED FOR MUSCLE SPASM ORAL 12/01/2024 [id number] GRACE FREEMAN SA 2024 30 [place] DICLOFENAC NA 1% GEL,TOP APPLY 2 GRAMS TOPICALL Y FOUR TIMES A DAY FOR JOINT PAIN FOR OSTEOART HRITIS - USE DOSING CARD PROVIDED IN BOX TOPICA L ACTIVE 11/02/2025 [id number] 5 GRACE FREEMAN SA 2024 100 [place] DICYCLOMINE HCL 10MG CAP TAKE 1 CAPSULE BY MOUTH ONCE DAILY ORAL ACTIVE GRACE FREEMAN SA [place] FAMOTIDINE 20MG TAB TAKE ONE TABLET BY MOUTH TWICE DAILY FOR GASTROES OPHAGEAL REFLUX DISEASE FOR STOMACH ACID ORAL ACTIVE 11/02/2025 [id number] 5 GRACE FREEMAN SA 2024 180 [place] OLOPATADINE HCL 0.2% SOLN,OPH INSTILL 1 DROP INTO EACH EYE ONCE DAILY FOR ALLERGIC CONJUNCT IVITIS OPHTHA LMIC ACTIVE 12/11/2025 [id number] 5 SAPNA LOWERY 2024 2.5 [facility] Allergies, Adverse Reactions, Alerts Combined list of allergies from Department of Defense and Veterans Affairs facilities. It does not include entries that were removed or entered in error. Substance Category Reaction Severity Reaction type Status Date Reported Comments Source AMOXICILLIN Propensity to adverse reactions to drug (finding) Urticaria active 4 [facility] APPLES Propensity to adverse reactions to substance (finding) Cough active 4 [facility] ASPIRIN RELATED MEDICATIONS Propensity to adverse reactions to drug (finding) Nausea and vomiting active 4 [facility] AZITHROMYCIN Propensity to adverse reactions to drug (finding) Diarrhea active 4 [facility] CLINDAMYCIN Propensity to adverse reactions to drug (finding) Abdominal pain active 4 [facility] CODEINE PHOSPHATE Propensity to adverse reactions to drug (finding) Urticaria active 4 [facility] DIPHENHYDRAM INE Propensity to adverse reactions to drug (finding) Urticaria active 4 [facility] LACTOSE Propensity to adverse reactions to substance (finding) Dyspnea active 4 [facility] LEVOFLOXACIN Propensity to adverse reactions to drug (finding) Eruption active 4 [facility] NAPROXEN Propensity to adverse reactions to drug (finding) Nausea and vomiting active 4 [facility] NONSTEROIDAL ANTI-INFLAMM ATORY Propensity to adverse reactions to drug (finding) Nausea and vomiting active 4 [facility] PENICILLIN Propensity to adverse reactions to drug (finding) Urticaria active 4 [facility] Penicillins Drug allergy (disorder) Urticaria active 2 [place], [place] SERTRALINE Propensity to adverse reactions to drug (finding) Suicidal thoughts active 4 [facility] SULFA DRUGS Propensity to adverse reactions to drug (finding) active 4 [facility] Sulfa-Drugs Drug allergy (disorder) Urticaria active 2 [facility] [place] Immunizations Combined list of available immunizations from the Department of Defense and Veterans Affairs facilities. Immunization Series Date Given Administered By Site Reaction Lot Number CVX Code Drug Linux Programmer Status Comments Source hepatitis B vaccine, adult dosage 3 2012 [id number] Other (OTH) complet ed hepatitis B vaccine, adult dosage DoD hepatitis A vaccine, adult dosage 3 2012 [id number] 52 Other (OTH) complet ed hepatitis A vaccine, adult dosage DoD HEP A-HEP B 3 2012 104 complet ed HISTORICA L INFORMATI ON - FROM OTHER REGISTRY, [facility] influenza virus vaccine, live, attenuated, for intranasal use 1 2011 [id number] ePantry, [employer]. (CSL) complet ed influenza virus vaccine, live, attenuate d, for intranasa l use [facility] INFLUENZA, UNSPECIFIED FORMULATION 2011 88 complet ed HISTORICA L INFORMATI ON - FROM OTHER REGISTRY, [facility] varicella virus vaccine 2 2011 [id number] Merck (MSD) complet ed varicella virus vaccine [facility] hepatitis A and hepatitis B vaccine 2 2011 [id number] 104 SmithKline (SKB) complet ed hepatitis A and hepatitis B vaccine [facility] HEP A-HEP B 2 2011 104 complet ed HISTORICA L INFORMATI ON - FROM OTHER REGISTRY, [facility] HEP A-HEP B 1 2011 104 complet ed HISTORICA L INFORMATI ON - FROM OTHER REGISTRY, [facility] poliovirus vaccine, inactivated 1 2011 [id number] Sanofi Pasteur (PMC) complet ed polioviru s vaccine, inactivat ed DoD varicella virus vaccine 1 2011 [id number] 21 Merck (MSD) complet ed varicella virus vaccine DoD hepatitis A and hepatitis B vaccine 1 2011 [id number] 104 SmithKline (SKB) complet ed hepatitis A and hepatitis B vaccine [facility] influenza virus vaccine, live, attenuated, for intranasal use 1 2011 [id number] 111 VSoft. (MED) complet ed influenza virus vaccine, live, attenuate d, for intranasa l use DoD meningococcal polysaccharid e (groups A, C, Y and W-135) diphtheria toxoid conjugate vaccine (MCV4P) 1 2011 [id number] 114 Sanofi Pasteur (PMC) complet ed meningoco ccal polysacch aride (groups A, C, Y and W-135) diphtheri a toxoid conjugate vaccine (MCV4P) DoD tetanus toxoid, reduced diphtheria toxoid, and acellular pertu is vaccine, adsorbed 1 2011 [id number] 115 Nduo.cn (SKB) complet ed tetanus toxoid, reduced diphtheri a toxoid, and acellular pertussis vaccine, adsorbed DoD Adenovirus, type 4 and type 7, live, oral 1 2011 [id number] 143 TasteSpace (BRR) complet ed Adenoviru s, type 4 and type 7, live, oral DoD TDAP 2011 115 complet ed HISTORICA L INFORMATI ON - FROM OTHER REGISTRY, [facility] measles, mumps and rubella virus vaccine 1 2011 UNK 03 Unknown (UNK) Not Given measles, mumps and rubella virus vaccine DoD Vital Signs Combined list of inpatient and outpatient Vital Signs from Department of Defense and Veterans Affairs, ranging from 12 months to all on record, depending upon the facility. Vital Sign Value Date Comments Source SYSTOLIC BLOOD PRESSURE 149 11/02/19 25 10:38:56 [facility] [facility] DIASTOLIC BLOOD PRESSURE 94 025 10:38:56 [facility] [facility] PULSE OXIMETRY 98 11/01/2024 10:38:56 [facility] [facility] WEIGHT 229.2 11/01/2024 10:38:56 [facility] BMI 33 kg/m2 11/01/2024 10:38:56 [facility] PAIN 0 11/01/2024 10:38:56 [facility] HEIGHT 70 11/01/2024 10:38:56 [facility] TEMPERATURE 98.6 11/01/2024 10:38:56 [facility] PULSE 78 11/01/2024 10:38:56 [facility] RESPIRATION 18 11/01/2024 10:38:56 [facility] SYSTOLIC BLOOD PRESSURE 138 04/16/20 11:24:29 [facility] DIASTOLIC BLOOD PRESSURE 84 024 11:24:29 [facility] PULSE OXIMETRY 99 04/16/2024 11:24:29 [facility] WEIGHT 217.6 04/16/2024 11:24:29 [facility] BMI 31 kg/m2 04/16/2024 11:24:29 [facility] PAIN 0 04/16/2024 11:24:29 [facility] HEIGHT 70 04/16/2024 11:24:29 [facility] TEMPERATURE 98.7 04/16/2024 11:24:29 [facility] PULSE 62 04/16/2024 11:24:29 [facility] RESPIRATION 16 04/16/2024 11:24:29 [facility] Encounters Combined list of: 1) Encounters from Department of Veterans Affairs facilities going backup to the last 18 months, not all VA inpatient encounters are included; 2) Encounters from the Department of Defense facilities going backup to 280 months. Location Location Details Encounter Type Encounter Number Reason For Visit Attending Provider ADM Date DC Date Status Disposition Source [facility](PES Optometry -Trainee) OUTPATIENT [id number] GLADYS HUNTER 09/06 Released w/o Limitations [facility](P ES Optomet ry-Ronaldo nee) CURLY Ferreira(Hearin g Conservat ion) OUTPATIENT [id number] [facility] IET WILL ROGER 09/12 Released w/o Limitations Samuel Hendrickson ID(Hear ing Conserv ation) Kadeem [facility], ID(OST Clinic) OUTPATIENT [id number] IMM TABATHA GORDON Martinez 11/14 Released w/o Limitations Samuel s [facility], [place](OST Clinic) [facility]([place] [employer] Performan ce) OUTPATIENT [id number] Screeni ng DEO LYNNE 11/27 Released with Work/Duty Limitations [facility](Unique dier Athlete Perform ance) [facility]([place] [employer]form[employer]) OUTPATIENT [id number] Wrist Elbow, Shoulde r pain 01/04 [place] 12/04 Released w/o Limitations [facility](Unique dier Athlete Perform ance) [facility]([address]) OUTPATIENT [id number] kleft knee injury SHAHID HARDEN SVETLANA 12/11 Released with Work/Duty Limitations [facility] Primary Care [place]) [facility]([address]) OUTPATIENT [id number] Remove profile SHAHID HARDEN 12/12 Released w/o Limitations [facility]([address] Care [place]) [facility]([place] [employer]forman [employer]) OUTPATIENT [id number] R leg eval SAIMA ESPINAL 01/20 Released w/o Limitations [facility](Unique dier Athlete Perform ance) [facility]([place] [employer] Performan ce) OUTPATIENT [id number] R leg TDN SAIMA ESPINAL 01/22 Released w/o Limitations [facility](Unique dier Athlete Perform ance) [facility]([place] [employer]form[employer]) OUTPATIENT [id number] Right Leg pain 01/04 DEO LYNNE 01/23 Released with Work/Duty Limitations [facility](Unique dier Athlete Perform ance) [facility] Primary Care [place]) OUTPATIENT [id number] chest ache, cough, headach e, sore throat DANYA ANGULO 01/27 Released w/o Limitations [facility]([address]) [facility]([place] [employer]form[employer]) OUTPATIENT [id number] R Leg pain 01/04 [place] 01/27 Released with Work/Duty Limitations [facility](Unique dier Athlete Perform ance) [facility]([address]) OUTPATIENT [id number] Chest congest ion, cough, sore throat KEVYN LEI 02/02 Released with Work/Duty Limitations [facility]([address]) [facility]([place] [employer]form[employer]) OUTPATIENT [id number] R leg pain 11/04 [facility] 02/03 Released with Work/Duty Limitations [facility](Unique dier Athlete Perform ance) [facility]([address]) OUTPATIENT [id number] Stomach pain, vomitin g, diarrhe a KEVYN LEI 03/02 Sick at Home/Quarter s [facility]([address]) [facility]([address]) OUTPATIENT [id number] right leg pain, knee NATACHA BREEN. 03/17 Released w/o Limitations [facility]([address]) [facility]) OUTPATIENT [id number] Notes Entered by: AMANDA MANE 05 Jan [id number] ------- ------- ------- ------- -- PAIN IN RIGHT KNEE ANGY YANES 01/05 Released with Work/Duty Limitations [facility]) [facility] Outpatient Encounter [id number] 03/09 [facility] En[facility] [id number] 04/05 [facility] Out[facility] Encounter [id number] 04/05 [facility] [place] OFF[place] O/P NEW LOW 30 MIN [id number] 1BY. 48 Diagnos is: ICD-10- CM K21.9 Gastro- esophag eal reflux disease without esophag itis FAMILIA FREEMAN 04/16 [place] [facility] Out[facility] Encounter [id number] 1.06/11 [facility] En[facility] [id number] 08/17 [facility] Out[facility] Encounter [id number] 08/24 [facility] Encounter [id number] 08/24 [facility] [place] PT EVAL LOW COMPLEX 20 MIN [id number] Diagnos is: ICD-10- CM M25.569 Pain in unspeci fied knee ULISES MICHAEL 08/30 [facility] SELF CARE MNGMENT TRAINING [id number] Diagnos is: ICD-10- CM M25.569 Pain in unspeci fied knee ULISES MICHAEL 09/10 [place] [facility] Outpatient Encounter [id number]/05 [facility] [place] O/P EST MOD 30 MIN [id number] Diagnos is: ICD-10- CM M54.2 Cervica lgshelby FAMILIA FREEMAN 11/01 [place] [facility] Outpatient Encounter [id number] 11/02 [facility] En[facility] [id number] 11/02 [facility] [place] PH1 ASSMT&MGMT NQHP 21-30 [id number] Diagnos is: ICD-10- CM Z71.89 Other specifi ed certified travel counselor SOPHIA Sethi 11/03 [place] [facility] Outpatient Encounter [id number] 11/03 [facility] [place] MECHANICAL TRACTION THERAPY [id number] Diagnos is: ICD-10- CM M54.2 Cervica josé miguelshelby ULISES MICHAEL 11/08 [place] [facility] Outpatient Encounter [id number] 1. Shira ALLEN 11/15 [facility] [place] MECHANICAL TRACTION THERAPY [id number] Diagnos is: ICD-10- CM M54.2 Cervica rebeca ULISES MICHAEL 11/15 [place] [facility] Outpatient Encounter [id number] [facility] Out[facility] Encounter [id number] Shira ALLEN 11/17 [facility] Out[facility]counter [id number] 1.11/17 [facility] Out[facility] Encounter [id number]/17 [facility] Outpatient Encounter [id number] 1.11/18 [facility] [place] MECHANICAL TRACTION THERAPY [id number] Diagnos is: ICD-10- CM M54.2 Michelleica ULISES Mckeon 11/23 [place] PSYCH DIAGNOSTIC EVALUATION [id number] Diagnos is: ICD-10- CM F41.1 General ized anxiety disorde r THUY MCGARRY I 11/25 [place] [facility] SELF-HELP/ PEER SVC PER 15MIN [id number] Diagnos is: ICD-10- CM Z59.10 Inadequ ate housing , unspeci DAVE Gill II 11/29 [facility] [place] SELF CARE MNGMENT TRAINING [id number] Diagnos is: ICD-10- CM M54.2 Michelleica ULISES Mckeon 11/30 [place] SELF CARE MNGMENT TRAINING [id number] Diagnos is: ICD-10- CM M54.2 Michelleica ULISES Mckeon 12/07 [place] [facility] OFFICE O/P NEW LOW 30 MIN [id number] Diagnos is: ICD-10- CM H40.013 Open angle with borderl ine finding s, low risk, bilater al OSHINSFABIANSAPNA Painter 12/10 [facility] Procedures Combined list of: 1) Procedures from Department of Veterans Affairs facilities going back up to thelast 18 months, not all [place] non-surgical procedures are included; 2) All procedures from the Department of Defense facilities. Procedure Procedure Type Code Date Perfomer Comments Sourc e DETERMINATION OF REFRACTIVE STATE 2 [facility] EAR MOLD/INSERT, NOT DISPOSABLE, ANY TYPE 2 [facility] HEPATITIS A AND HEPATITIS B VACCINE (HEPA-HEPB), ADULT DOSAGE, FOR INTRAMUSCULAR USE 2 [facility] PATIENT EDUCATION, NOT OTHERWISE CLASSIFIED, NON-PHYSICIAN PROVIDER, GROUP, PER SESSION 2 [facility] THERAPEUTIC PROCEDURE, 1 OR MORE AREAS, EACH 15 MINUTES; THERAPEUTIC EXERCISES TO DEVELOP STRENGTH AND ENDURANCE, RANGE OF MOTION AND FLEXIBILITY 2 [facility] THERAPEUTIC PROCEDURE, 1 OR MORE AREAS, EACH 15 MINUTES; THERAPEUTIC EXERCISES TO DEVELOP STRENGTH AND ENDURANCE, RANGE OF MOTION AND FLEXIBILITY 2 [facility] THERAPEUTIC PROCEDURE, 1 OR MORE AREAS, EACH 15 MINUTES; THERAPEUTIC EXERCISES TO DEVELOP STRENGTH AND ENDURANCE, RANGE OF MOTION AND FLEXIBILITY 2 [facility] PHYSICAL OR MANIPULATIVE THERAPY PERFORMED FOR MAINTENANCE RATHER THAN CONFUCIANISM 2 [facility] PHYSICAL PERFORMANCE TEST OR MEASUREMENT (EG, MUSCULOSKELETAL, FUNCTIONAL CAPACITY), WITH WRITTEN REPORT, EACH 15 MINUTES 2 [facility] APPLICATION OF A MODALITY TO 1 OR MORE AREAS; HOT OR COLD PACKS 2 [facility] ATHLETIC TRAINING EVALUATION 2 [facility] Physical Therapy: ___ Se ion Segments, 15 Minutes Each Physical Therapy: ___ Session Segments, 15 Minutes Each 57558 2 [facility] PT A e ment Kinetic Training PT Assessment Kinetic Training 70971 2 [facility] Physical Therapy: ___ Se ion Segments, 15 Minutes Each Physical Therapy: ___ Session Segments, 15 Minutes Each 41915 2 [facility] PT A e ment Kinetic Training PT Assessment Kinetic Training 57588 2 [facility] Physical Therapy: ___ Se ion Segments, 15 Minutes Each Physical Therapy: ___ Session Segments, 15 Minutes Each [address] [facility] PT A e ment Kinetic Training PT Assessment Kinetic Training 30748 2 [facility] Physical or manipulative therapy performed for maintenance rather than mormonism 2 SAIMA ESPINAL [facility] Physical Medicine Physical Therapy Re-Evaluation Physical Medicine Physical Therapy Re-Evaluation 88675 2 SAIMA ESPINAL [facility] PT A e ment Physical Performance Testing PT Assessment Physical Performance Testing 93821 2 SAIMA ESPINAL [facility] Modalities Cryotherapy Cold Packs Modalities Cryotherapy Cold Packs 39196 2 [place] [facility] Physical Therapy: ___ Se ion Segments, 15 Minutes Each Physical Therapy: ___ Session Segments, 15 Minutes Each [address] [facility] Athletic Training Evaluation Athletic Training Evaluation 20782 2 [facility] Immunization Administration One Vaccine Immunization Administration One Vaccine 94089 2 [facility] Immunization Administration Each Additional Vaccine 2 [facility] Vaccines Viral Varicella (Active) Vaccines Viral Varicella (Active) 95697 2 [facility] Hepatitis A And Hepatitis B (Intramuscular Use) Adult Dosage Hepatitis A And Hepatitis B (Intramuscular Use) Adult Dosage 12979 2 [facility] Audiometry Group Testing Audiometry Group Testing 51151 2 [place] Painter S. [facility] Patient education, not otherwise cla ified, non-physician provider, group, per se ion 2 ROGER, WILL S. [facility] Ear Protector Attenuation Measurements Ear Protector Attenuation Measurements 76805 2 ROGER, WILL S. [facility] Ophthalmological New Patient Start Intermediate Level Care Ophthalmological New Patient Start Intermediate Level Care 48545 2 AILIN TORRES [facility] Fitting Monofocals (Not For Aphakia) [facility] Fitting Monofocals (Not For Aphakia) 90631 2 AILIN TORRES Determination Of Refractive State Determination Of Refractive State 27597 2 AILIN TORRES I [facility] Social History Combined list of available smoking, tobacco, and other social history from Department of Defense and Veterans Affairs facilities. Social History Type Response Date Comment Sour e Tobacco smoking status NHIS [facility]-TOBACCO FORMER USER 024 [place] History of tobacco use VA-TOBACCO QUIT 5 TO < 15 YRS 04/16/2024 [place] This section is an empty social history section. [facility] Plan of Care List of future care activities from [facility] facilities. Additional future care activities may be listed in the Assessment and Plan section. Date/Time Care Activity Care Activity Detail Facili ty 12/14/2024 AMBULATORY - PSYCHIATRY AMBULATORY - PSYC [facility]
--- OUTSIDE RECORDS SUMMARY | 2024-12-13 15:00 | XMS_ITS | Patient Health Record ---
Author Organization [facility] Address [address] [place] [id number] Care Team Providers Care Transplant Immunologist Name Role Phone Norris Villasenor MD Primary Care Provider Cuate Cazares Unavailable [phone] Allergies Allergen (clinical drug ingredient) Drug/Non Drug Allergy documented on EMR Reaction Allergy Type Onset Date Status azithromycin Zithromax Unknown Drug Allergy Acti ve diphenhydramine Benadryl Unknown Drug Allergy A ctive amoxicillin Amoxicillin Unknown Drug Allergy Act dacia apples, dairy,gluten, seasonal allergies (uncoded) Unknown Allergy Active Sulfa Unknown Drug Allergy Active Penicillin Unknown Drug Allergy Active Reason For Referral No Information Medications Medication SIG (Take, Route, Frequency, Duration) Notes Start Date End Date Status Zantac 300 MG 1 Orally BID Act dacia Dicyclomine HCl 10 MG 1-2 capsules Orall y Four times a dayprn abdominal cramps/bloating/disc omfort--may take before meals to try to prevent the symptoms for 30 day(s) 11/28/2016 Active Gas-X Active Multivitamin Active ibuprofen Several times a week Active albuterol Active ZyrTEC Allergy Activ e Social History Tobacco Use: Social History Observation Description Date Details (start date - stop date) Current Smoker NA - NA Tobacco Use/Smoking Question Answer Notes Patient is a current smoker How often do you smoke cigarettes? every day How many cigarettes a day do you smoke? 11-20 How soon after you wake up do you smoke your fir st cigarette? 6-30 minutes Alcohol Screen Question Answer Notes Did you have a drink containing alcohol in the p ast year? No Points 0 Interpretation Negative Section Notes: Smoker; no alcohol Problems Problem Type SNOMED Code ICD Code Onset Dates Problem Status W/U Status Risk Notes Problem 454906268 Gastroesophageal reflux disease, esophagitis presence not specified (K21.9) Active confirmed Problem [id number] Diarrhea, unspecified type (R19.7) Active confirmed Problem 96135150 Irritable bowel syndrome, unspecified type (K58.9) Active confirmed Plan Of Treatment Pending Test Test Name Order Date CELIAC PANEL #10 11/28/2016 Future Test Test Name Order Date FLEXIBLE SIGMOIDOSCOPY, DIAGNOSTIC 11/28 UPPER GI ENDOSCOPY 11/28/2016 Insurance Providers Payer Name Payer Address Payer Phone Subscriber Number Group Number Insured Name Patient Relationship to Insured Coverage Start Date Coverage End Date [facility] [employer] [facility] [address] [address] [place], [place] [id number] ADAM BEST Self - patient is the insured Medical (General) History Medical History History ICD Code Seasonal allergies Asthma Heart murmur-he reports that he takes an tibiotics before procedures Denies MS,DM,CVA,Lung disease,renal dise ase Surgical History Surgery Date(Month/Year) Tonsillectomy Right knee arthroscopy reconstruction, m eniscus repair Cysts removed-- neck , back and scalp
[2024-12-13 15:01] VITALS: BP 132/78; PULSE 72; TEMP 36.1; O2SAT 99; BMI 32.3
== END 2024-12-13 15:49 | disposition home or self-care (01) ==
DX: G47.00 Insomnia, unspecified (principal); F41.9 Anxiety disorder, unspecified; E66.9 Obesity, unspecified; Z68.32 Body mass index [BMI] 32.0-32.9, adult; M54.12 Radiculopathy, cervical region; R03.0 Elevated blood-pressure reading, without diagnosis of hypertension; M17.11 Unilateral primary osteoarthritis, right knee; G56.03 Carpal tunnel syndrome, bilateral upper limbs; Z91.018 Allergy to other foods; K21.9 Gastro-esophageal reflux disease without esophagitis; R01.1 Cardiac murmur, unspecified

== ENCOUNTER → 2024-12-13 14:55 | Outpatient (BNVA) | payer OTHER, SELFPAY | PROVIDERS: PCP Internal Medicine | DX: M54.12 Radiculopathy, cervical region (principal); F41.9 Anxiety disorder, unspecified; G47.00 Insomnia, unspecified; R03.0 Elevated blood-pressure reading, without diagnosis of hypertension; E66.9 Obesity, unspecified; Z68.32 Body mass index [BMI] 32.0-32.9, adult; M17.11 Unilateral primary osteoarthritis, right knee; G56.03 Carpal tunnel syndrome, bilateral upper limbs; K21.9 Gastro-esophageal reflux disease without esophagitis; R01.1 Cardiac murmur, unspecified; F90.9 Attention-deficit hyperactivity disorder, unspecified type; Z91.018 Allergy to other foods | CPT/HCPCS: 96127; 99212 ==

== ENCOUNTER 2024-12-27 11:03 | Outpatient (AMB) | payer OTHER, SELFPAY ==
[2024-12-27 11:11] VITALS: BMI 32.3
--- NOTE | 2024-12-27 11:11 | A.OFFVIS_ITS ---
Vital Signs 12/27/24 11:11 Height 5 ft 10 in Weight 225 lb BMI 32.3 Intake Visit Reasons: OV- Right knee sprain- MRI done Intake Note: Mikal is a 34 year old male who presents today for a follow up of his right knee pain. Hx of Right ACL w/ Meniscus Repair & Right knee . At his last visit he was ordered an unloading brace. Patient reports that on 11/08/23 he was doing laundry when he kneeled to get into the dryer, when he put weight on the right knee his knee cap moved and he felt increased pain. He was instructed to remain NWB. Currently he reports that he is having pain in the lateral and medial aspects of the knee that radiate to the calf. He is taking Ibuprofen, which did not help/ MRI was done at the [facility] in [place] Allergies diphenhydramine Allergy (Intermediate, Verified 12/13/24 15:31) hives apple [APPLE] Allergy (Mild, Verified 12/13/24 15:31) NECK PAIN COUGH amoxicillin [AMOXICILLIN] Allergy (Unknown, Verified 12/13/24 15:31) HIVES azithromycin [From ZITHROMAX] Allergy (Unknown, Verified 12/13/24 15:31) COLITIS clindamycin [CLINDAMYCIN] Allergy (Unknown, Verified 12/13/24 15:31) GI PROBLEMS lactose [LACTOSE] Allergy (Unknown, Verified 12/13/24 15:31) GI SYMPTOMS, VOMITING, DIFF BREATHING levofloxacin [Levaquin] Allergy (Unknown, Verified 12/13/24 15:31) rash on hand naproxen [NAPROXEN] Allergy (Unknown, Verified 12/13/24 15:31) STOMACH UPSET penicillin V Allergy (Unknown, Verified 12/13/24 15:31) hives Penicillins [PENICILLINS] Allergy (Unknown, Verified 12/13/24 15:31) HIVES Sulfa (Sulfonamide Antibiotics) [SULFA (SULFONAMIDE ANTIBIOTICS)] Allergy (Unknown, Verified 12/13/24 15:31) HIVES aspirin Adverse Reaction (Unknown, Verified 12/13/24 15:31) upset stomach sertraline [Zoloft] Adverse Reaction (Unknown, Verified 12/13/24 15:31) SI thoughts all nsaids Allergy (Unknown, Uncoded 12/13/24 15:31) stomach upset Codeine Phosphate Allergy (Unknown, Uncoded 12/13/24 15:31) hives HPI HPI OV- Right knee sprain- MRI done: Details: Mikal is a 34 year old male who presents today for a follow up of his right knee pain. Hx of Right ACL w/ Meniscus Repair & Right knee . At his last visit he was ordered an unloading brace. Patient reports that on 11/08/23 he was doing laundry when he kneeled to get into the dryer, when he put weight on the right knee his knee cap moved and he felt increased pain. He was instructed to remain NWB. Currently he reports that he is having pain in the lateral and medial aspects of the knee that radiate to the calf. He is taking Ibuprofen, which did not help/ MRI was done at [facility] Medical History Enlarged RV (right ventricle) Neck injury Elevated BP without diagnosis of hypertension Surgical History History of tonsillectomy History of anterior cruciate ligament surgery History of knee surgery Family History Mother Hypertension Father Diabetes Hypertension High cholesterol Brother WPW (Wlkaf-Uhohqtbsj-Nfcyr syndrome) Social History Housing: Apartment Alcohol intake: current Alcohol intake frequency: does not drink Patient Tobacco Use Status: Former Tobacco user e-Cigarette/Vaping Use: Never Used Second Hand Smoke Exposure: Yes service: Yes Current occupational status: employed 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 1+ Jan's with negative pivot shift. Stable to varus and valgus stress. No effusion. Tenderness to palpation medial compartment. Results Reviewed Results Reviewed: I personally reviewed the MR images. Of diminutive posterior medial meniscus status post meniscectomy with medial compartment osteoarthritis. ACL graft appears intact. Lateral compartment appears unharmed. Assessment & Plan Assessment & Plan (1) Localized osteoarthritis of right knee: Code(s): M17.11 - Unilateral primary osteoarthritis, right knee Category: Medical Plan: 34-year-old status post ACL reconstruction with medial meniscus repair versus meniscectomy done at outside facility who has medial compartment osteoarthritis. He is extremely young. He had been doing well with an unloading brace but it was wearing it all the time and it fell apart. I would like to order another 1. He has had steroid injections in the past, most recently by me, and these were unhelpful. I think viscosupplementation would be the next step. If that is not helpful we may consider PRP. Coding Level of Care Code Est Pt Level 4 (62784) Diagnoses Localized osteoarthritis of right knee M17.11
== END 2024-12-27 11:49 | disposition home or self-care (01) ==
LOC: HO.HOS 11:05
PROVIDERS: PCP Internal Medicine; Referring Provider Orthopaedic Surgery; Visit Provider Orthopaedic Surgery
DX: M17.11 Unilateral primary osteoarthritis, right knee (principal); S83.511D Sprain of anterior cruciate ligament of right knee, subsequent encounter
CPT/HCPCS: 99214

== ENCOUNTER → 2024-12-27 11:03 | Outpatient (BNVA) | payer OTHER, SELFPAY | PROVIDERS: PCP Internal Medicine; Visit Provider Orthopaedic Surgery | DX: M17.11 Unilateral primary osteoarthritis, right knee (principal); Z98.890 Other specified postprocedural states | CPT/HCPCS: 99212 ==

== ENCOUNTER 2025-03-07 10:51 | Outpatient (AMB) | payer OTHER, SELFPAY ==
--- OUTSIDE RECORDS SUMMARY | 2025-02-15 05:00 | XMS_ITS | Encounter Summary ---
Author Name [facility] [facility] [place] Address [address] [place] [id number] Care Team Providers Care It Risk And Assurance Senior Manager Name Role Phone VESNA ALEXANDER Primary Care Provider Unavailrosy e Selected Encounter This section includes the information on record at [place] for the Encounter. Date/Time Encounter Type Encounter Description Reason Provider Source Feb 15, 2025 09:00 AM PSYTX W PT 45 MINUTES [facility] - IND ICD-10-CM F51.01 Primary insomnia LORNA CORTES Inocencio Encounter Template Text not used by [place] Assessments - Encounter Diagnoses This section includes the primary and secondary diagnoses documented for the Encounter. Date/Time Primary/Secondary Diagnosis Diagnosis Name Provider Source Feb 15, 2025 11:05 AM PRIMARY Primary insomnia LORNA CORTES [facility] Feb 15, 2025 11:05 AM SECONDARY Generalized anxiety disorder LORNA CORTES [facility] Feb 15, 2025 11:05 AM SECONDARY Major depressive disorder, recurrent, moderate LORNA CORTES [facility] Plan of Treatment: Future Appointments (+ 6 months) and Future Tests (+/- 45 days) The Plan of Treatment section includes future care activities for the patient from all [place] treatmentfacilities. This section includes future appointments and future orders which are active, pending or scheduled. Future Appointments This section includes appointments that were scheduled to occur 6 months from the date of the Encounter, up to a maximum of 20 appointments. The data comes from all [place] treatment facilities. Appointment Date/Time Appointment Type Appointme nt Facility Name Mar 01, 2025 10:30 AM AMBULATORY - PSYCHIATRY [facility] Mar 07, 2025 11:00 AM AMBULATORY - MEDICINE [facility] Mar 29, 2025 10:30 AM AMBULATORY - PSYCHIATRY [facility] Jun 16, 2025 09:00 AM [facility] Aug 17, 2025 11:00 AM [place] [facility] Aug 17, 2025 11:30 AM [place] [facility] Active, Pending, and Scheduled Orders This section includes a listing of several types of active, pending, and scheduled orders, including clinic medications orders, diagnostic test orders, procedure orders and consult orders; where the start date of the order is 45 days before the date of the Encounter or 45 days after the date of theEncounter. The data comes from all [place] treatment facilities. 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 Current Smoking Status This section includes the most current smoking, or tobacco-related health factor, from the [place] facility where the Encounter took place. Date/Time Current Smoking Status Comment Vishal ity Apr 16, 2024 11:00 AM [place]-TOBAC[place] FORMER USER [facility] Tobacco Use History This section includes a history of the smoking, or tobacco-related health factors, that were collected on or before the date of the Encounter. The data comes from the [place] facility where the Encounter took place. Date/Time Smoking Status/Tobacco Use Comment F acyanna Apr 16, 2024 11:00 AM [place]-TOBACCO QUIT 5 TO < 15 YRS [facility] Radiology Reports: +/- 30 days of the [...] the Encounter. The data comes from all [place] treatment facilities. Date/Time Radiology Report Provider Source Feb 04, 2025 12:43 PM MRI CERVICAL SPINE WO CONTRAST, CPT 84406: ADAM BEST [phone] -1990 M Exm Date: FEB 04, 2025@12:43 Req Phys: VESNA ALEXANDER Pat Loc: [facility] PACT 10 MD LUEVANO (Req'g Loc) Img Loc: [facility] MRI [facility]: [facility] [place] [address] (Case [id number] COMPLETE) MRI CERVICAL SPINE WO CONTRAST, C(MRI Detailed) CPT:23984 Reason for Study: cervicalgia Clinical History: PLEASE NOTE If patient is claustrophobic consider ordering anti-anxiety medication prior to MRI. Safety Assessment: You must answer ALL questions or this questionnaire is not captured. Ordering provider, phone number and beeper:Vesna Alexander MD [id number] Weight: 226.2 lb [102.60 kg] (01/05/2025 10:38) Height: 70 in [177.8 cm] (01/05/2025 10:38) Creatinine: CREATININE No data available for: CREATININE URINE BUN: BUN Collection DT Specimen Test Name Result Units Ref Range 12/31/2024 12:57 SERUM UREA NITROGEN 16 mg/dL 9 - 21 Can Radiology order radiographs on your behalf [...] with: No Report Status: Verified Date Reported: FEB 09, 2025 Date Verified: FEB 09, 2025 Secondary Connector Armature E-Sig:/ES/OUTSIDE SERVICE RADIOLOGY Report: MRI CERVICAL SPINE WO CONTRAST, CPT 20382 CLINICAL INDICATION: Cervicalgia. TECHNIQUE: Multisequence, multiplanar MRI of the cervical spine was performed without contrast material. The study was protocoled and supervised at the local [place] facility. 148 images were subsequently received by the [place] National Teler[facility] Program (NTP) for interpretation. COMPARISON: 11/01/2024 cervical spine radiographs FINDINGS: The cervical spine demonstrates reversal of the normal cervical lordosis. Vertebral bodies are normal in height. There is an expected marrow signal pattern. A few small disc protrusions as described below. The cervical spinal cord is normal in signal intensity. The craniocervical junction is normal. The included intracranial structures are grossly normal. The paraspinal soft tissues are normal. Evaluation of the individual levels demonstrates: C2-3: No significant spinal canal or neural foraminal stenosis. C3-4: No significant spinal canal or neural foraminal stenosis. C4-5: Small central disc protrusion. No significant spinal canal or neural foraminal stenosis. C5-6: Broad-based posterior disc protrusion extending to the left subarticular zone. Mild effacement of the ventral aspect of the canal with mild spinal canal stenosis and narrowing of the canal diameter to 0.9 cm AP. Mild left and no right neural foraminal stenosis. C6-7: No significant spinal canal or neural foraminal stenosis. C7-T1: No significant spinal canal or neural foraminal stenosis. Impression: C5-C6 disc protrusion, which results in mild C5-C6 spinal canal stenosis and mild left neural foraminal stenosis. READING PHYSICIAN: Matt Albright -[id number] 02/09/2025 10:48 PDT [facility] National Teleradiology Program [phone] (For Medical Practitioner Use Only) Attention Patients / Veterans: If you have questions or concerns about these test results, please contact your ordering provider or primary care team. Primary Diagnostic Code: NO ALERT REQUIRED Primary Interpreting Staff: OUTSIDE SERVICE RADIOLOGY, Staff Physician / RADIOLOGY,OUTSIDE SERVICE [place] [facility] Encounter Notes: All associated encounter notes This section contains the clinical notes associated to the Encounter. Date/Time Encounter Note(s) Provider Source Feb 15, 2025 11:12 AM ADDENDUM: LOCAL TITLE: Addendum STANDARD TITLE: ADDENDUM DATE OF NOTE: FEB 15, 2025@11:12:15 ENTRY DATE: FEB 15, 2025@11:12:16 AUTHOR: LORNA CORTES EXP COSIGNER: URGENCY: STATUS: COMPLETED [place] indicated that he trialed the Alpha-Stim once but the experience increased his anxiety. He stated that he was interested in trialing the device again. Alerting PSS Joel Anne and [employer] for assistance. /es/ LORNA CORTES PSYD Clinical Psychologist Signed: 02/15/2025 11:12 Receipt Acknowledged By: * AWAITING SIGNATURE * DAYANAESAU 02/15/2025 14:40 /clay/ LUCIE Salomon A/C TECHNICIAN == --- Original Document --- 02/15/25 CBT INSOMIA THERAPY NOTE: Cognitive Behavioral Therapy for Insomnia: Final Session Time in session (in minutes): 40 SESSION NUMBER: 6 SESSION FORMAT [id number] session S[facility]ATION [facility] DIAGNOSIS: Primary (focus of treatment): Insomnia Disorder (ICD-10-CM F51.01); Major Depressive Disorder (ICD-10-CM F33.1); Generalized Anxiety Disorder (ICD-10- CM F41.1) ASSESSMENT --Insomnia Severity Index Score: 19 --This score is indicative of a moderate level of insomnia. --The KYLEIGH score represents a reduction in self-reported insomnia severity since last session. Sleep Diary: [place] completed a sleep diary. --Diary variables averages: 17.14 Naps 1:40 Bedtime 1:50 Lights out 80.00 Latency to fall asleep 5.57 # of awakenings 46.00 Minutes awake in middle of night 8:09 Wake time 0.00 minutes awake too early 8:13 out of bed for day 2.00 Quality of sleep OPTIONAL: No Data # of nightmares No Data # of hours of CPAP use/night 6:22 Time in Bed 4:12 Total Sleep Time 4:29 24TST, Biological Need for sleep (TST + Naps) 65.51% Sleep Efficiency 0.90 Lights Out Time Variability (SD) 1.07 Wake Time Variability (SD) Sleep Need Questionnaire Severe level of unmet sleep need (score of 13 or greater) --[place]'s level of adherence since last session was medium to high. ADDITIONAL ASSESSMENT INFORMATION RISK INFORMATION He is considered to be at low risk of harm to self/others at this time. MENTAL STATUS/BEHAVIORAL OBSERVATIONS 1. Appearance (grooming, attire, apparent age) within normal limits: Yes 2. Thought content was organized and goal directed: Yes 3. Speech was coherent and unimpaired: Yes 4. Affect was appropriate and unremarkable: Yes 5. Demeanor was calm, with no signs of agitation or restlessness: Yes 6. Sleep was largely unimpaired and restful: No 7. No evidence of psychosis (hallucinations or delusions): Yes No evidence 8. Mood was normal: Mood was euthymic Other Observations: [place] arrived a minute late to the appointment and was neatly groomed. He was oriented X3, alert, and cooperative. His short- term memory and long-term memory appeared intact. He did not demonstrate any abnormal motor movements, psychomotor agitation, or psychomotor retardation. Insight and judgment were within normal limits. Attention and concentration were within normal limits. SESSION CONTENT [place] completed the final session of Cognitive Behavioral Therapy for insomnia (CBT-I). The following occurred during the session: --Reviewed sleep diary and scoring and addressed any problems completing the sleep diary. Discussed adherence to therapy and its relationship to treatment progress. Problem-solved issues/barriers to implementing treatment to date. was encouraged not to nap during the day (except for safety naps when needed). He was also encouraged to adhere to the BT/WT schedule. Adjusted and prescribed bedtime and rise time in collaboration with the [place] as follows: No change Adjustments were made based on: Sleep diary data Sleep Need Questionnaire Input Developed a continuing care plan and a relapse prevention plan. Provided the [place] with the handout: Action Plan for Addressing Insomnia in the Future. --Provided a blank sleep diary to the [place]. CONTINUING SELF CARE PLAN 's continuing self care plan includes: indicated that he will continue to utilize CBT-I skills. He was informed about the CBT-I Food Mixer Assembler robert, and encouraged to utilize the robert. He and undersigned also discussed other reasons/factors for feeling tired during the day. He reported that he requested a referral for a sleep study to determine if he has sleep apnea, and that he will follow-up with his doctor about the possibility of RLS. He also stated that he will be following up with neurology for his chronic neck pain. He related that he will speak with his medication provider regarding medication for anxiety and nightmares. Undersigned also informed him that she will follow-up with PSS Joel Anne regarding the Alpha-Stim consult. MOTIVATIONAL ENHANCEMENT --Identified short-term goals in several areas of functioning. --Identified the consequences or impact of the target diagnosis/problem (or other symptoms). --Assessed attitude toward therapy. COLLABORATION The degree of collaboration between the [place] and the therapist in the current session was high. Description of collaboration in this session: He was provided with opportunities to ask questions and to provide feedback. REVIEW OF PROGRESS TOWARD TREATMENT GOALS At the outset of treatment, 's stated treatment goal was: more energy; better mental clarity; getting more sleep; being able to fall asleep when I want to. Together, we established the following specific goal(s) for treatment: Assist [place] in utilizing positive coping strategies to improve his sleep hygiene. 's stated treatment goal was not achieved fully as he continues to experience sleep issues. However, he has been positively utilizing CBT-I skills and was encouraged to continue using these skills. Insomnia Severity Index Initial/Final Initial Insomnia Severity Index Score: 25 reported at evaluation session Final Insomnia Severity Index Score: 19 Sleep Diary Review Compared to 's initial sleep diary values, changes in sleep diary values at the completion of treatment reflect: an increase in Sleep Latency of 35 minutes an increase in Number of Awakenings of 4 times a decrease in Total Sleep Time of 49 minutes a decrease in Sleep Efficiency of 14% Overall, the reports that his/her sleep quality is slightly improved. PLAN: TREATMENT COMPLETED is aware of the CBT-I skills that he needs to continue to implement. He reported that he plans to continue practicing the CBT-I skills as well as address the other reasons for feeling tired. He was encouraged to contact undersigned in the future if needed. AGREED WITH THE ABOVE PLAN /es/ LORNA CORTES PSYD Clinical Psychologist Signed: 02/15/2025 11:10 LORNA CORTESFIELD Feb 15, 2025 09:43 AM MENTAL HEALTH NOTE : LOCAL TITLE: CBT INSOMIA THERAPY NOTE STANDARD TITLE: MENTAL HEALTH NOTE DATE OF NOTE: FEB 15, 2025@09:43 ENTRY DATE: FEB 15, 2025@09:43:25 AUTHOR: LORNA CORTES EXP COSIGNER: URGENCY: STATUS: COMPLETED CBT INSOMIA THERAPY NOTE Has ADDENDA Cognitive Behavioral Therapy for Insomnia: Final Session Time in session (in minutes): 40 SESSION NUMBER: 6 SESSION FORMAT [id number] session SESSION LOCATION [facility] DIAGNOSIS: Primary (focus of treatment): Insomnia Disorder (ICD-10-CM F51.01); Major Depressive Disorder (ICD-10-CM F33.1); Generalized Anxiety Disorder (ICD-10- CM F41.1) ASSESSMENT --Insomnia Severity Index Score: 19 --This score is indicative of a moderate level of insomnia. --The KYLEIGH score represents a reduction in self-reported insomnia severity since last session. Sleep Diary: completed a sleep diary. --Diary variables averages: 17.14 Naps 1:40 Bedtime 1:50 Lights out 80.00 Latency to fall asleep 5.57 # of awakenings 46.00 Minutes awake in middle of night 8:09 Wake time 0.00 minutes awake too early 8:13 out of bed for day 2.00 Quality of sleep OPTIONAL: No Data # of nightmares No Data # of hours of CPAP use/night 6:22 Time in Bed 4:12 Total Sleep Time 4:29 24TST, Biological Need for sleep (TST + Naps) 65.51% Sleep Efficiency 0.90 Lights Out Time Variability (SD) 1.07 Wake Time Variability (SD) Sleep Need Questionnaire Severe level of unmet sleep need (score of 13 or greater) --[place]'s level of adherence since last session was medium to high. ADDITIONAL ASSESSMENT INFORMATION RISK INFORMATION He is considered to be at low risk of harm to self/others at this time. MENTAL STATUS/BEHAVIORAL OBSERVATIONS 1. Appearance (grooming, attire, apparent age) within normal limits: Yes 2. Thought content was organized and goal directed: Yes 3. Speech was coherent and unimpaired: Yes 4. Affect was appropriate and unremarkable: Yes 5. Demeanor was calm, with no signs of agitation or restlessness: Yes 6. Sleep was largely unimpaired and restful: No 7. No evidence of psychosis (hallucinations or delusions): Yes No evidence 8. Mood was normal: Mood was euthymic Other Observations: Anne arrived a minute late to the appointment and was neatly groomed. He was oriented X3, alert, and cooperative. His short- term memory and long-term memory appeared intact. He did not demonstrate any abnormal motor movements, psychomotor agitation, or psychomotor retardation. Insight and judgment were within normal limits. Attention and concentration were within normal limits. SESSION CONTENT [place] completed the final session of Cognitive Behavioral Therapy for insomnia (CBT-I). The following occurred during the session: --Reviewed sleep diary and scoring and addressed any problems completing the sleep diary. Discussed adherence to therapy and its relationship to treatment progress. Problem-solved issues/barriers to implementing treatment to date. was encouraged not to nap during the day (except for safety naps when needed). He was also encouraged to adhere to the BT/WT schedule. Adjusted and prescribed bedtime and rise time in collaboration with the as follows: No change Adjustments were made based on: Sleep diary data Sleep Need Questionnaire [place] Input Developed a continuing care plan and a relapse prevention plan. Provided the [place] with the handout: Action Plan for Addressing Insomnia in the Future. --Provided a blank sleep diary to the . CONTINUING SELF CARE PLAN 's continuing self care plan includes: [place] indicated that he will continue to utilize CBT-I skills. He was informed about the CBT-I Food Mixer Assembler robert, and encouraged to utilize the robert. He and undersigned also discussed other reasons/factors for [place] feeling tired during the day. He reported that he requested a referral for a sleep study to determine if he has sleep apnea, and that he will follow-up with his doctor about the possibility of RLS. He also stated that he will be following up with neurology for his chronic neck pain. He related that he will speak with his medication provider regarding medication for anxiety and nightmares. Undersigned also informed him that she will follow-up with PSS Joel Anne regarding the Alpha-Stim consult. MOTIVATIONAL ENHANCEMENT --Identified short-term goals in several areas of functioning. --Identified the consequences or impact of the target diagnosis/problem (or other symptoms). --Assessed attitude toward therapy. COLLABORATION The degree of collaboration between the and the therapist in the current session was high. Description of collaboration in this session: He was provided with opportunities to ask questions and to provide feedback. REVIEW OF PROGRESS TOWARD TREATMENT GOALS At the outset of treatment, [place]'s stated treatment goal was: more energy; better mental clarity; getting more sleep; being able to fall asleep when I want to. Together, we established the following specific goal(s) for treatment: Assist [place] in utilizing positive coping strategies to improve his sleep hygiene. [place]'s stated treatment goal was not achieved fully as he continues to experience sleep issues. However, he has been positively utilizing CBT-I skills and was encouraged to continue using these skills. Insomnia Severity Index Initial/Final Initial Insomnia Severity Index Score: 25 reported at evaluation session Final Insomnia Severity Index Score: 19 Sleep Diary Review Compared to [place]'s initial sleep diary values, changes in sleep diary values at the completion of treatment reflect: an increase in Sleep Latency of 35 minutes an increase in Number of Awakenings of 4 times a decrease in Total Sleep Time of 49 minutes a decrease in Sleep Efficiency of 14% Overall, the reports that his/her sleep quality is slightly improved. PLAN: TREATMENT COMPLETED [place] is aware of the CBT-I skills that he needs to continue to implement. He reported that he plans to continue practicing the CBT-I skills as well as address the other reasons for feeling tired. He was encouraged to contact undersigned in the future if needed. AGREED WITH THE ABOVE PLAN /clay/ LORNA CORTES PSYD Clinical Psychologist Signed: 02/15/2025 11:10 02/15/2025 ADDENDUM STATUS: COMPLETED indicated that he trialed the Alpha-Stim once but the experience increased his anxiety. He stated that he was interested in trialing the device again. Alerting PSS Joel Anne and [employer] [place] for assistance. /clay/ LORNA CORTES PSYD Clinical Psychologist Signed: 02/15/2025 11:12 Receipt Acknowledged By: * AWAITING SIGNATURE * ESAU ANNE * AWAITING SIGNATURE * RANJEET MORENO EILEEN K [place]
--- NOTE | 2025-03-07 09:29 | HO.SPINEOV ---
Intake Visit Reasons: Neck Pain Intake Note: Mr. Messina is here today c/o neck pain[facility] 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 diphenhydramine Allergy (Intermediate, Verified 12/13/24 15:31) hives apple (APPLE) Allergy (Mild, Verified 12/13/24 15:31) NECK PAIN COUGH amoxicillin (AMOXICILLIN) Allergy (Unknown, Verified 12/13/24 15:31) HIVES azithromycin (From ZITHROMAX) Allergy (Unknown, Verified 12/13/24 15:31) COLITIS clindamycin (CLINDAMYCIN) Allergy (Unknown, Verified 12/13/24 15:31) GI PROBLEMS lactose (LACTOSE) Allergy (Unknown, Verified 12/13/24 15:31) GI SYMPTOMS, VOMITING, DIFF BREATHING levofloxacin (Levaquin) Allergy (Unknown, Verified 12/13/24 15:31) rash on hand naproxen (NAPROXEN) Allergy (Unknown, Verified 12/13/24 15:31) STOMACH UPSET penicillin V Allergy (Unknown, Verified 12/13/24 15:31) hives Penicillins (PENICILLINS) Allergy (Unknown, Verified 12/13/24 15:31) HIVES Sulfa (Sulfonamide Antibiotics) (SULFA (SULFONAMIDE ANTIBIOTICS)) Allergy (Unknown, Verified 12/13/24 15:31) HIVES aspirin Adverse Reaction (Unknown, Verified 12/13/24 15:31) upset stomach sertraline (Zoloft) Adverse Reaction (Unknown, Verified 12/13/24 15:31) SI thoughts all nsaids Allergy (Unknown, Uncoded 12/13/24 15:31) stomach upset Codeine Phosphate Allergy (Unknown, Uncoded 12/13/24 15:31) hives Assessment & Plan Assessment & Plan (1) Cervicalgia: Code(s): M54.2 - Cervicalgia Category: Medical Plan Dear Dr. Villasenor, Thank you for referring Mikal to our office today. He is a pleasant 34-year-old male who comes in today for evaluation of neck pain and shooting pains into his left upper extremity. He reports that this has been ongoing for the last few years, and denies any known inciting incident for the pain. When describing the pain he states that it starts in his posterior neck shoots into his left shoulder down the left deltoid and over the dorsal surface of his forearm. In addition to this he occasionally will experience numbness/tingling of his left hand, which he reports is worse overnight. He also states that his left hand/forearm we will start to go numb/tingle when he is driving holding the steering wheel. He was previously evaluated by our colleagues in orthopedics ([id number]) who obtained an EMG for him. He states he never heard anything back after his EMG and thinks it was unremarkable but is not sure. He denies any issues with dexterity, balance, or bowel/bladder. He does report that he will occasionally drop things out of his left hand. He is unable to identify any alleviating/aggravating factors for his pain. He reports that he does not take any [id number] or prescribed pain medication as he suffers from significant stomach issues and reports he cannot tolerate PO medication very well. He has been to physical therapy for this issue, however reports that it was not helpful and only worsened his pain. He has not as of yet attempted cortisone injections. PMH: Exercise-induced asthma, GERD, irritable bowel syndrome, major depressive disorder, panic disorder, obesity. Social hx:[] Medications: Diclofenac gel, duloxetine, famotidine, mirtazapine, cyclobenzaprine, albuterol, dicyclomine. Allergies: Amoxicillin, apples, aspirin, azithromycin, clindamycin, codeine, Benadryl, lactose, levofloxacin, naproxen, all other NSAIDs, penicillins, sertraline, sulfa drugs. Physical exam: The patient has full 5/5 strength in his upper and lower extremities. He ambulates well with a non spastic nonantalgic gait. His reflexes are 2+ intact diffusely. He has no significant sensational deficits on examination. (-) Lang's, (-) clonus, (-) bilateral straight leg raise. Imaging review: EMG completed in June 2023 shows no evidence for cubital / carpal tunnel syndrome. Normal study. Patient was unable to bring MRI to his visit but brought the report and some isolated images. MRI report states he has mild left sided foraminal stenosis at 2 separate levels. The patient will return to the [place] today and obtain a disc to drop off at the office for review. Impression: Mikal is a pleasant 34-year-old male who comes in today for evaluation of neck pain and shooting pain into his left upper extremity. This has been ongoing for the past few years without any known inciting incident. His clinical picture is most consistent with a left-sided cervical radiculopathy, however his symptoms also sound like they could be related to an carpal or cubital tunnel syndrome. Despite this, his EMG done in June of 2023 showed no evidence of cervical radiculopathy, median nerve impingement, or ulnar nerve impingement. I have not as of yet been able to review his MRI imaging, as he did not bring a disc to this visit today. I would like the patient to obtain a disc of his MRI, bring it to the office, and I will review it. I will call him and update him after we review his images. Tentatively I think he would be best served via evaluation by pain management for consideration of injections. We may want to repeat his EMG as well. Thank you for allowing us to care for your patient. The total time spent with this visit with this patient was 45 minutes reviewing history, physical exam, Individual MRI images / report review, EMG review, and implementation of treatment plan or further diagnostic testing Bill Weaver MD,PhD [facility] Coding Level of Care Code New Pt Level 4 (27514) Diagnoses Cervicalgia M54.2
--- OUTSIDE RECORDS SUMMARY | 2025-03-07 11:34 | XMS_ITS | Patient Health Record ---
Author Organization [facility] Address [address] [place] [id number] Care Team Providers Care Sas Clinical Programmer Name Role Phone Norris Villasenor MD Primary Care Provider Cuate Cazares [phone] Allergies Allergen (clinical drug ingredient) Drug/Non Drug Allergy documented on EMR Reaction Allergy Type Onset Date Status Penicillin Unknown Drug Allergy Active Zithromax Unknown Drug Allergy Active diphenhydramine Benadryl Unknown Drug Allergy A ctive amoxicillin Amoxicillin Unknown Drug Allergy Act dacia apples, dairy,gluten, seasonal allergies (uncoded) Unknown Allergy Active Sulfa Unknown Drug Allergy Active Reason For Referral [...] Problem Status W/U Status Risk Notes Problem [id number] Gastroesophageal reflux disease, esophagitis presence not specified (K21.9) Active confirmed Problem [id number] Diarrhea, unspecified type (R19.7) Active confirmed Problem [id number] Irritable bowel syndrome, unspecified type (K58.9) Active confirmed Plan Of Treatment Pending Test Test Name Order Date CELIAC PANEL #10 11/28/2016 Future Test Test Name Order Date FLEXIBLE SIGMOIDOSCOPY, DIAGNOSTIC 11/28 UPPER GI ENDOSCOPY 11/28/2016 Insurance Providers Payer Name Payer Address Payer Phone Subscriber Number Group Number Insured Name Patient Relationship to Insured Coverage Start Date Coverage End Date [facility] [address] [address] [place], [place] [id number] ESTEPHANIA, ADAM Self - patient is the insured Medical (General) History Medical History History ICD Code Seasonal allergies Asthma Heart murmur-he reports that he takes an tibiotics before procedures Denies AR,DM,CVA,Lung disease,renal dise ase Surgical History Surgery Date(Month/Year) Tonsillectomy Right knee arthroscopy reconstruction, m eniscus repair Cysts removed-- neck , back and scalp
== END 2025-03-07 11:23 | disposition home or self-care (01) ==
LOC: HO.HNS 10:52
PROVIDERS: PCP Internal Medicine; Referring Provider Internal Medicine; Visit Provider Physician Assistant
DX: M54.2 Cervicalgia (principal)
CPT/HCPCS: 99204

== ENCOUNTER → 2025-03-07 10:51 | Outpatient (BNVA) | payer OTHER, SELFPAY | PROVIDERS: PCP Internal Medicine; Referring Provider Internal Medicine; Visit Provider Physician Assistant | DX: Z71.2 Person consulting for explanation of examination or test findings (principal); M50.222 Other cervical disc displacement at C5-C6 level | CPT/HCPCS: 99202 ==

== ENCOUNTER 2025-04-07 14:55 | Outpatient (AMB) | payer OTHER, SELFPAY ==
--- NOTE | 2025-04-07 15:00 | A.OFFVIS_ITS ---
Vital Signs 04/07/25 15:01 Height 5 ft 10 in Weight 223 lb BMI 32.0 BP 144/84 H Blood Pressure Location Rt brachial Position Sitting Pulse 76 Pulse Source Pulse Oximeter Pulse Oximetry (%) 100 Oxygen Delivery Method Room Air Intake Visit Reasons: IBS exacerbation. SHANAE 2023. Intake Note: Est pt for mgmt of IBS + GERD. CC: C.O. exacerbation of chronic sx. Pt states that his meds are still helpful and he would be worse without them; however, they do not help as much as they did previously. GERD, epigastric pain, and diarrhea. 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 Accompanied by: Self / Same As Patient Allergies diphenhydramine Allergy (Intermediate, Verified 04/07/25 15:12) hives apple (APPLE) Allergy (Mild, Verified 04/07/25 15:12) NECK PAIN COUGH amoxicillin (AMOXICILLIN) Allergy (Unknown, Verified 04/07/25 15:12) HIVES azithromycin (From ZITHROMAX) Allergy (Unknown, Verified 04/07/25 15:12) COLITIS clindamycin (CLINDAMYCIN) Allergy (Unknown, Verified 04/07/25 15:12) GI PROBLEMS lactose (LACTOSE) Allergy (Unknown, Verified 04/07/25 15:12) GI SYMPTOMS, VOMITING, DIFF BREATHING levofloxacin (Levaquin) Allergy (Unknown, Verified 04/07/25 15:12) rash on hand naproxen (NAPROXEN) Allergy (Unknown, Verified 04/07/25 15:12) STOMACH UPSET penicillin V Allergy (Unknown, Verified 04/07/25 15:12) hives Penicillins (PENICILLINS) Allergy (Unknown, Verified 04/07/25 15:12) HIVES Sulfa (Sulfonamide Antibiotics) (SULFA (SULFONAMIDE ANTIBIOTICS)) Allergy (Unknown, Verified 04/07/25 15:12) HIVES aspirin Adverse Reaction (Unknown, Verified 04/07/25 15:12) upset stomach sertraline (Zoloft) Adverse Reaction (Unknown, Verified 04/07/25 15:12) SI thoughts all nsaids Allergy (Unknown, Uncoded 04/07/25 15:12) stomach upset Codeine Phosphate Allergy (Unknown, Uncoded 04/07/25 15:12) hives HPI HPI IBS exacerbation. [facility] 2023.: Details: LAST VISIT 08/04/2022 GERD (gastroesophageal reflux disease) Postprandial epigastric pain Abdominal bloating Postprandial diarrhea Constipation Plan Will check thyroid study, vitamin B12 and folate, vitamin-D level. Will rule out IBD check CRP fecal calprotectin. Rule out celiac, pancreatic insufficiency and H pylori. Discussed with patient avoiding dietary triggers and late night snacking. Staying upright for minimal 3 hours after meals discussed with patient. Patient continue taking omeprazole daily. Low FODMAP diet discussed with patient. List of food recommended as well as list of food to avoid given to patient. Will start patient on fiber to help him bulk stool and senna to help him eliminate his bowels. Patient was encouraged to increase fluid intake and activity to promote better bowel motility. Patient will return in our office in 5 weeks, sooner on as needed basis. Patient is agreeable to this plan and verbalizes understanding of instructions. He was given the opportunity to ask questions and all questions answered. ? Thank you for allowing me to participate in his care Orders TSH reflex Free T4 08/04/23 K59.00 Vitamin B12 and Folate 08/04/23 R19.7 H pylori Ag Stool 08/04/23 K21.9 Pancreatic Elastase-1 08/04/23 R10.9 Transglutaminase Ab IgG 08/04/23 R10.9 Transglutaminase IgA 08/04/23 R10.9 Vitamin D 25-OH (D2 and D3) 08/04/23 E55.9 C Reactive Protein 08/04/23 K58.9 Calprotectin, Fecal 08/04/23 R15.9 Rast Allergen 08/04/23 K21.9 New methylcellulose (laxative) (Citrucel) 500 mg PO DAILY 30 tabs 2RF K59.00 sennosides (Natural Senna Laxative) 17.2 mg (2 x 8.6 mg) PO BEDTIME 60 tabs 1RF constipation K59.00 TODAY'S VISIT Patient is here today for questions visit. Last seen in July 2023. Patient reports that he has never followed through with follow-up appointment as he is very busy. Patient is working and is going to school part-time. Patient reports taking omeprazole daily, however he continues to have epigastric pain, acid reflux, dyspepsia without dysphagia or odynophagia. Patient reports that he saw his PCP in November and she ordered upper GI series. Patient reports that his insurance did not cover it. Patient reports postprandial epigastric pain, postprandial abdominal bloating and postprandial in stool. Patient reports that he is trying to avoid certain food. Unable to eat beef. Reports abdominal cramping in right lower and left upper quadrant when having a bowel movement. Patient denies melena, hematochezia, unintentional weight loss or ribbon like stools [facility] Medical History Enlarged RV (right ventricle) Neck injury Elevated BP without diagnosis of hypertension Surgical History History of tonsillectomy History of anterior cruciate ligament surgery History of knee surgery Family History Mother Hypertension Father Diabetes Hypertension High cholesterol Brother WPW (Bbyep-Xaytpzxbk-Coniz syndrome) Social History Housing: Apartment Alcohol intake: current Alcohol intake frequency: does not drink Patient Tobacco Use Status: Former Tobacco user e-Cigarette/Vaping Use: Never Used Second Hand Smoke Exposure: Yes Advance Directives: No Advance Directives Information Provided: No service: Yes Current occupational status: employed 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 Current occupational exposures/hazards: No Cognitive needs: No Hearing needs: No Vision needs: Yes (Glasses) Review of Systems Const Denies weight gain and Denies weight loss ENT Reports no additional complaints, Denies dysphagia and Denies odynophagia Card Reports no additional complaints Resp Reports no additional complaints GI Reports abdominal pain, Denies belching, Denies melena, Denies bloating, Reports constipation, Denies dysphagia, Denies excessive flatus, Reports dyspepsia, Reports heartburn, Denies diarrhea, Reports loose stools, Denies nausea, Denies odynophagia and Denies vomiting Reports no additional complaints Musc Reports no additional complaints Neuro Reports no additional complaints Psych Reports no additional complaints Endo Reports no additional complaints Physical Exam Vital Signs: Last Vital Signs Pulse 76 04/07/25 15:01 BP 144/84 H 04/07/25 15:01 Pulse Ox 100 04/07/25 15:01 Oxygen Delivery Method Room Air 04/07/25 15:01 BMI result Body Mass Index 32.0 Const General: healthy appearing, no acute distress and well developed Nutritional Appearance: well nourished Orientation/consciousness: patient oriented x3 Resp Effort & Inspection: normal respiratory effort, able to speak in complete se ntences, no tracheal deviation and symmetric chest movement Auscultation: clear to auscultation bilaterally Cardio Rate: regular rate GI Inspection: Yes normal to inspection and No distended Palpation (GI): Soft to palpation, not firm, nontender and No hepatosplenomegaly present Auscultation: normal bowel sounds General: Yes no CVA tenderness Back/Spine/Pelvis Back: no CVA tenderness Skin General skin exam: elasticity normal, turgor normal and dry skin Neuro General: patient oriented x3 Psych Appearance: grossly normal Mental Status: mental status grossly normal Results Reviewed Results Reviewed: Laboratory Tests 08/04/23 15:59 C-Reactive Protein 0.32 Vitamin B12 509 25-OH Vitamin D Total 15 L Folate 7.3 TSH 0.95 Tiss Transglutamin IgA <1.0 allergen test negative Assessment & Plan Assessment & Plan (1) Gastroesophageal reflux disease: Code(s): K21.9 - Gastro-esophageal reflux disease without esophagitis Qualifiers: Esophagitis presence: esophagitis presence not specified Qualified Code(s): K21.9 - Gastro-esophageal reflux disease without esophagitis (2) Postprandial epigastric pain: Code(s): R10.13 - Epigastric pain (3) Abdominal bloating: Code(s): R14.0 - Abdominal distension (gaseous) (4) Postprandial diarrhea: Code(s): K52.9 - Noninfective gastroenteritis and colitis, unspecified (5) Constipation: Code(s): K59.00 - Constipation, unspecified Qualifiers: Constipation type: slow transit constipation Qualified Code(s): K59.01 - Slow transit constipation Plan Will change PPI treatment to Nexium. Patient can take famotidine at bedtime. Patient was encouraged to avoid dietary triggers. Eat smaller meals more often. Stay upright after meals for minimum 3 hours. Will send him for upper GI with barium swallow to check for reflux. He will take senna daily to help him eliminate bowels better. Increase fluid intake and activity to promote better bowel motility. Follow-up in 4 months, sooner on as needed basis. He is agreeable to this plan and verbalizes understanding of instructions. He was given the opportunity to ask questions and all questions answered. Thank you for allowing me to participate in his care Orders: Orders FL upper GI w air w Ba Swallow 04/07/25 K21.9 - Gastro-esophageal reflux disease without esophagitis Medications: New esomeprazole magnesium (Nexium) 40 mg PO DAILY 90 caps 3RF K21.9 - Gastro- esophageal reflux disease without esophagitis sennosides (Natural Senna Laxative) 17.2 mg (2 x 8.6 mg) PO BEDTIME 60 tabs 1RF constipation K59.00 - Constipation, unspecified famotidine (Pepcid) 20 mg PO BEDTIME 90 tabs 3RF K21.9 - Gastro-esophageal reflux disease without esophagitis Discontinued omeprazole Discontinued Reason: Doctor's Order 20 mg PO DAILY 90 tabs 1RF Coding Level of Care Code Est Pt Level 4 (85709) Complex EM visit Add On G2211 Diagnoses Gastroesophageal reflux disease, unspecified whether esophagitis present K21.9 Esophagitis presence: esophagitis presence not specified Postprandial epigastric pain R10.13 Abdominal bloating R14.0 Postprandial diarrhea K52.9 Slow transit constipation K59.01 Constipation type: slow transit constipation Time Spent (min) 40 Comment 25 minutes spent with patient and additional 15 minutes spent reviewing his records
[2025-04-07 15:01] VITALS: BP 144/84; PULSE 76; O2SAT 100; BMI 32.0
--- OUTSIDE RECORDS SUMMARY | 2025-04-07 18:23 | XMS_ITS | Patient Health Record ---
Author Organization [facility] Address [address] [place] [id number] Care Team Providers Care Special Events Manager Name Role Phone Norris Villasenor MD Primary Care Provider Cuate Cazares Unavailable [phone] Allergies Allergen (clinical drug ingredient) Drug/Non Drug Allergy documented on EMR Reaction Allergy Type Onset Date Status Penicillin Unknown Drug Allergy Active azithromycin Zithromax Unknown Drug Allergy Acti ve [...] Problem Status W/U Status Risk Notes Problem 307123254 Gastroesophageal reflux disease, esophagitis presence not specified (K21.9) Active confirmed Problem 06672503 Diarrhea, unspecified type (R19.7) Active confirmed Problem 64587717 Irritable bowel syndrome, unspecified type (K58.9) Active confirmed Plan Of Treatment Pending Test Test Name Order Date CELIAC PANEL #10 11/28/2016 Future Test Test Name Order Date FLEXIBLE SIGMOIDOSCOPY, DIAGNOSTIC 11/28 UPPER GI ENDOSCOPY 11/28/2016 Insurance Providers Payer Name Payer Address Payer Phone Subscriber Number Group Number Insured Name Patient Relationship to Insured Coverage Start Date Coverage End Date [facility] [employer] [facility] [address] [address] [place], [place] [id number] ADAM BEST Self - patient is the insured Medical (General) History Medical History History ICD Code Seasonal allergies Asthma Heart murmur-he reports that he takes an tibiotics before procedures Denies AL,DM,CVA,Lung disease,renal dise ase Surgical History Surgery Date(Month/Year) Tonsillectomy Right knee arthroscopy reconstruction, m eniscus repair Cysts removed-- neck , back and scalp
== END 2025-04-07 15:28 | disposition home or self-care (01) ==
LOC: HO.HGI 14:55
PROVIDERS: Visit Provider Nurse Practitioner Family
DX: K21.9 Gastro-esophageal reflux disease without esophagitis (principal); R10.13 Epigastric pain; R14.0 Abdominal distension (gaseous); K52.9 Noninfective gastroenteritis and colitis, unspecified; K59.01 Slow transit constipation
CPT/HCPCS: 99214; G2211

== ENCOUNTER → 2025-04-07 14:55 | Outpatient (BNVA) | payer OTHER, SELFPAY | PROVIDERS: Visit Provider Nurse Practitioner Family | DX: K21.9 Gastro-esophageal reflux disease without esophagitis (principal); R10.13 Epigastric pain; R14.0 Abdominal distension (gaseous); K52.9 Noninfective gastroenteritis and colitis, unspecified; K59.01 Slow transit constipation | CPT/HCPCS: 99212 ==

== ENCOUNTER 2025-05-03 15:10 | Emergency (ER) | payer OTHER, SELFPAY ==
--- OUTSIDE RECORDS SUMMARY | 2025-05-03 17:30 | XMS_ITS | Encounter Summary ---
Author Organization [facility] Address [address] [place] [address] Care Team Providers Care Workforce Consultant Name Role Phone Physician, Pcp Unknown Primary Care Provider Jessica vailable Reason for Visit * Reason Comments Abdominal Pain Encounter Details Date Type Department Care Team (Late st Contact Info) Description 05/03/2025 5:30 PM EDT - Present Emergency [facility] Emergency [address] [place] [id number] Tio Gilliland MD [address] [place] [address] Social History Tobacco Use Types Packs/Day Years Used Date Smoking Tobacco: Never Smokeless Tobacco: Never Tobacco Cessation:Counseling Given: Not Answered Alcohol Use Standard Drinks/Week Comments Never 0 (1 standard drink = 0.6 oz pur e alcohol) Sex and Gender Information Value Date Recorded Sex Assigned at Not on file Legal Sex Male 8:24 PM EST Gender Identity Not on file Sexual Orientation Not on file documented as of this encounter Last Filed Vital Signs Vital Sign Reading Time Taken Comments Blood Pressure 136/86 05/03/2025 3:32 PM EDT Pulse 78 05/03/2025 3:32 PM EDT Temperature 36.7 C (98.1 F) 05/03/2025 3:32 PM EDT Respiratory Rate 16 05/03/2025 3:32 PM EDT Oxygen Saturation 100% 05/03/2025 3:32 PM EDT Inhaled Oxygen Concentration - - Weight 99.8 kg (220 lb) 05/03/2025 3:32 PM EDT Height 177.8 cm (5' 10 ) 05/03/2025 3:32 PM EDT Body Mass Index 31.57 05/03/2025 3:32 PM EDT documented in this encounter Functional Status * Calculated C-SSRS Risk Score (Lifetime/Recent) Answer Date of Assessment Author No Risk Indicated 05/03/2025 3:34 PM EDT Lily Talamantes RN * [place] Suicide Severity Rating Scale (Screener/Recent Self-Report) Question Answer Date of Assessment Author 1. Wish to be (Past 1 Month) No 025 3:34 PM EDT Lily Talamantes, RN 2. Non-Specific Active Suici maryana Thoughts (Past 1 Month) No 05/03/2025 3:34 PM EDT Lily Talamantes, RN 6. Suicidal Behavior (Lifetime) No 3:34 PM EDT Lily Talamantes RN documented as of this encounter Progress Notes * Neri Joe RN - 05/03/2025 3:30 PM EDT Pt presents for abdominal pain since Friday, vomiting. Reports having several abdominal issues but this is different, gets pain in his chest when he eats. Takes antacid medications at home but not helping. Ambulatory, a/ox3 documented in this encounter Plan of Treatment Pending Results Name Type Priority Associated Diagnoses Date /Time US Abdomen Limited Imaging STAT 2024 6:19 PM EDT Scheduled Orders Name Type Priority Associated Diagnoses Orde r Schedule US Abdomen Limited Imaging STAT Once f or 1 Occurrences starting 05/03/2025 until 05/03/2025 documented as of this encounter Procedures * The patient is currently admitted. The information in this section might not be complete until the patient is discharged. Procedure Name Priority Date/Time Associated Diagnosis Comments CBC WITH AUTO DIFFERENTIAL STAT 05/03/2025 4:35 PM EDT CBC AND DIFFERENTIAL STAT 05/03/2025 4:35 PM EDT LIPASE STAT 05/03/2025 4:35 PM EDT COMPREHENSIVE METABOLIC PANEL STAT 05/03/2025 4:35 PM EDT documented in this encounter Results * (ABNORMAL) CBC auto differential (05/03/2025 4:35 PM EDT) [facility] WBC 7.3 4.8 - 10.8 K/mcL LAB HEMETOLOGY METHOD 05/03/2025 4:46 PM EDT [facility] RBC 5.50 4.50 - 5.50 M/mcL LAB HEMETOLOGY METHOD 05/03/2025 4:46 PM EDT [facility] Hemoglobin 15.1 13.5 - 17.5 g/dL LAB HEMETOLOGY METHOD 05/03/2025 4:46 PM EDT [facility] Hematocrit 45.9 42.0 - 54.0 % LAB HEMETOLOGY METHOD 05/03/2025 4:[facility] MCV 83.6 79.0 - 98.0 FL LAB HEMETOLOGY METHOD 05/03/2025 4:46 PM [facility] MCH 27.5 27.0 - 32.0 pcg LAB HEMETOLOGY METHOD 05/03/2025 4:46 PM [facility] MCHC 32.9 32.0 - 37.0 g/dL LAB HEMETOLOGY METHOD 05/03/2025 4:46 PM [facility] RDW 11.9 11.0 - 15.0 % LAB HEMETOLOGY METHOD 05/03/2025 4:46 PM [facility] Platelets 333 130 - 400 K/mcL LAB HEMETOLOGY METHOD 05/03/2025 4:46 PM [facility] MPV 10.6 7.0 - 11.0 FL LAB HEMETOLOGY METHOD 05/03/2025 4:46 PM [facility] NRBC 0.0 <1.0 % LAB HEMETOLOGY METHOD 05/03/2025 4:46 PM [facility] NRBC Absolute 0.00 <0.10 K/mcL LAB HEMETOLOGY METHOD 05/03/2025 4:46 PM EDT [facility] Neutrophils Relative 63.8 % LAB HEMETOLOGY METHOD 05/03/2025 4:46 PM [facility] Lymphocytes Relative 25.6 % LAB HEMETOLOGY METHOD 05/03/2025 4:46 PM [facility] Monocytes Relative 9.0 % LAB HEMETOLOGY METHOD 05/03/2025 4:46 PM [facility] Eosinophils Relative 0.7 % LAB HEMETOLOGY METHOD 05/03/2025 4:46 PM [facility] Basophils Relative 0.4 % LAB HEMETOLOGY METHOD 05/03/2025 4:46 PM [facility] Immature Granulocytes Relative 0.5 % LAB HEMETOLOGY METHOD 05/03/2025 4:46 PM [facility] Neutrophils Absolute 4.66 1.50 - 7.00 K/mcL LAB HEMETOLOGY METHOD 05/03/2025 4:46 PM [facility] Lymphocytes Absolute 1.87 1.00 - 5.00 K/mcL LAB HEMETOLOGY METHOD 05/03/2025 4:46 PM [facility] Monocytes Absolute 0.66 0.20 - 1.00 K/mcL LAB HEMETOLOGY METHOD 05/03/2025 4:46 PM [facility] Eosinophils Absolute 0.05 0.00 - 0.50 K/mcL LAB HEMETOLOGY METHOD 05/03/2025 4:46 PM [facility] Basophils Absolute 0.03 0.00 - 0.20 K/mcL LAB HEMETOLOGY METHOD 05/03/2025 4:46 PM [facility] Immature Granulocytes Absolute 0.04(H) 0.00 - 0.03 K/mcL LAB HEMETOLOGY METHOD 05/03/2025 4:46 PM [facility] Blood Venous blood specimen / Unknown Venipuncture / Unknown 05/03/2025 4:35 PM EDT 05/03/2025 4:40 PM EDT Jose CURRY LAB BLOOD ORDERABLES Jaylene l Result Performing Organization Address City/[facility]/ZIP Co de Phone Number [facility] [address] [place] [address], [place] [phone] * Lipase (05/03/2025 4:35 PM EDT) Lipase 22 13 - 75 unit/L LAB CHEMISTRY METHOD 05/03/2025 5:29 PM EDT [facility] Blood Venous blood specimen / Unknown Venipuncture / Unknown 05/03/2025 4:35 PM EDT 05/03/2025 4:40 PM EDT Jose CURRY LAB BLOOD ORDERABLES Jaylene l Result Performing Organization Address City/[facility]/ZIP Co de Phone Number [facility] [address] [place] [address], [place] [phone] * (ABNORMAL) Comprehensive metabolic panel (05/03/2025 4:35 PM EDT) Sodium 135 133 - 145 mmol/L LAB CHEMISTRY METHOD 05/03/2025 5:29 PM EDT [facility] Potassium 4.5 3.5 - 5.5 mmol/L LAB CHEMISTRY METHOD 05/03/2025 5:29 PM EDT [facility] Chloride 102 96 - 110 mmol/L LAB CHEMISTRY METHOD 05/03/2025 5:29 PM EDT [facility] CO2 27 21 - 32 mmol/L LAB CHEMISTRY METHOD 05/03/2025 5:29 PM EDT [facility] Anion Gap 6 3 - 11 LAB CHEMISTRY METHOD 05/03/2025 5:29 PM [facility] Glucose 107(H) 70 - 100 mg/dL LAB CHEMISTRY METHOD 05/03/2025 5:29 PM [facility] BUN 13 5 - 25 mg/dL LAB CHEMISTRY METHOD 05/03/2025 5:29 PM [facility] Creatinine 1.09 0.70 - 1.30 mg/dL LAB CHEMISTRY METHOD 05/03/2025 5:29 PM [facility] eGFR 91 >=60 mL/min/1. 73m2 LAB CHEMISTRY METHOD 05/03/2025 5:29 PM [facility] Comment:Calculation based on the Chronic Kidney Disease Epidemiology Collaboration (CKD-EPI) equation refit without adjustment for race. BUN/Creatinine Ratio 11.9 LAB CHEMISTRY METHOD 05/03/2025 5:29 PM [facility] Calcium 9.7 8.5 - 10.5 mg/dL LAB CHEMISTRY METHOD 05/03/2025 5:29 PM [facility] AST (SGOT) 17 10 - 42 unit/L LAB CHEMISTRY METHOD 05/03/2025 5:29 PM [facility] ALT (SGPT) 40 10 - 60 unit/L LAB CHEMISTRY METHOD 05/03/2025 5:29 PM [facility] Alkaline Phosphatase 100 42 - 121 unit/L LAB CHEMISTRY METHOD 05/03/2025 5:29 PM [facility] Total Protein 8.0 6.0 - 8.0 g/dL LAB CHEMISTRY METHOD 05/03/2025 5:29 PM [facility] Albumin 4.5 3.2 - 5.0 g/dL LAB CHEMISTRY METHOD 05/03/2025 5:29 PM [facility] Total Bilirubin 0.7 0.0 - 1.4 mg/dL LAB CHEMISTRY METHOD 05/03/2025 5:29 PM [facility] Blood Venous blood specimen / Unknown Venipuncture / Unknown 05/03/2025 4:35 PM EDT 05/03/2025 4:40 PM EDT us Jose CURRY LAB BLOOD ORDERABLES Jaylene farr Result [facility] [address] [place] [address], documented in this encounter Visit Diagnoses Not on filedocumented in this encounter Administered Medications Inactive Administered Medications - up to 3 most recent administrations Medication Order MAR Action Action Date Dose Rate Site aluminum-magnesium hydroxide-simethicone (MAALOX) 200-200-20 mg/5 mL suspension 30 mL 30 mL, oral, Once, On Fri05/03/25 at 1733, For 1 dose Given 05/03/2025 5:37 PM EDT 30 mL lidocaine (XYLOCAINE) 2 % mouth solution 15 mL 15 mL, Mouth/Throat, Once, On Fri05/03/25 at 1733, For 1 dose Given 05/03/2025 5:37 PM EDT 15 mL ondansetron ODT (ZOFRAN-ODT) disintegrating tablet 4 mg 4 mg, oral, Once, On Fri05/03/25 at 1733, For 1 dose Given 05/03/2025 5:37 PM EDT 4 mg documented in this encounter Active and Recently Administered Medications Times are shown in EDT. Scheduled Medication Order 05/01/2025 05/02/2025 05/03/2025 aluminum-magnesium hydroxide-simethicone (MAALOX) 200-200-20 mg/5 mL suspension 30 mL (COMPLETED) 30 mL, oral, Once, On Fri05/03/25 at 1733, For 1 dose 1736 (Given - Provid er: Meryl Maravilla RN) lidocaine (XYLOCAINE) 2 % mouth solution 15 mL (COMPLETED) 15 mL, Mouth/Throat, Once, On Fri05/03/25 at 1733, For 1 dose 1736 (Given - Provid er: Meryl Maravilla RN) ondansetron ODT (ZOFRAN-ODT) disintegrating tablet 4 mg (COMPLETED) 4 mg, oral, Once, On Fri05/03/25 at 1733, For 1 dose 1737 (Given - Provid er: Meryl Maravilla RN) documented in this encounter Orders Diet Count Last Ordered Date First Orde red Date ADULT NPO DIET 1 05/03/2025 documented in this encounter Care Teams Workforce Consultant Relationship Specialty Start Date End Date Physician, Pcp Unknown PCP - General 05/03/25 documented as of this encounter
--- OUTSIDE RECORDS SUMMARY | 2025-05-03 18:48 | XMS_ITS | Clinical Summary ---
Author Organization [facility] Address [address] [place] [address] Phone Care Team Providers Care Vocational Director Name Role Phone Physician, Pcp Unknown Primary Care Provider Jessica vailable Allergies Active Allergy Reactions Criticality Noted Date Comments Amoxicillin 05/03/2025 Azithromycin 05/03/2025 Penicillin V 05/03/2025 Sulfa (Sulfonamide Antibiotics) 01/2025 Medications No known medications Encounters Date Type Department Care Team Description 05/03/2025 5:30 PM EDT - Present Emergency [facility] Emergency [address] [place] [address] Tio Gilliland MD from Last 3 Months Social History Tobacco Use Types Packs/Day Years [...] on file Sexual Orientation Not on file Obstetrics History Last Filed Vital Signs Vital Sign Reading [...] Mass Index 31.57 05/03/2025 3:32 PM EDT Plan of Treatment Health Maintenance Due Date Last Done Comments Hepatitis B Vaccines (1 of 3 - 19+ 3-dose series) 2008 HPV Vaccines (1 - 3-dose SCD M series) 2016 Cholesterol Screening (Lipid Panel) 08/22/2023 HIV Screening 08/22/2023 Hepatitis C Screening 08/22/2023 Social Influencers of Health Screening 08/22/2023 Depression Screening 07/28/2024 COVID-19 Vaccine (1 - 2023-2 5 season) 2025 Influenza Vaccine (#1) 2025 DTaP,Tdap,and Td Vaccines (2 - Td or Tdap) 03/08/2034 03/08/2024 RSV Immunization Adult Patie nts (1 - 1-dose 75+ series) 2064 HIB Vaccines Aged Out No longer eligi ble based on patient's age to complete this topic Hepatitis A Vaccines Aged Out No long er eligible based on patient's age to complete this topic IPV Vaccines Aged Out No longer eligi ble based on patient's age to complete this topic MMR Vaccines Aged Out No longer eligi ble based on patient's age to complete this topic Meningococcal ACWY Vaccine Aged Out N o longer eligible based on patient's age to complete this topic Meningococcal B Vaccine Aged Out No l onger eligible based on patient's age to complete this topic Pneumococcal Vaccine: Pediat rics (0 to 5 Years) and At-Risk Patients (6 to 49 Years) Aged Out No longer eligi ble based on patient's age to complete this topic RSV Immunization Patients Un bradly 20 months Aged Out No longer eligible b ased on patient's age to complete this topic Varicella Vaccines Aged Out No longer eligible based on patient's age to complete this topic Procedures * The patient is currently admitted. The information in this section might not be complete until the patient is discharged. Procedure Name Priority Date/Time Associated Diagnosis Comments CBC WITH AUTO DIFFERENTIAL STAT 05/03/2025 4:35 PM EDT LIPASE STAT 05/03/2025 4:35 PM EDT COMPREHENSIVE METABOLIC PANEL STAT 05/03/2025 4:35 PM EDT CBC AND DIFFERENTIAL STAT 05/03/2025 4:35 PM EDT from Last 3 Months Results * (ABNORMAL) CBC auto differential (05/03/2025 4:35 PM EDT) [facility] WBC 7.3 4.8 - 10.8 K/mcL LAB HEMETOLOGY METHOD 05/03/2025 4:46 PM EDT [facility] RBC 5.50 4.50 - 5.50 M/mcL LAB HEMETOLOGY METHOD 05/03/2025 4:46 PM EDT [facility] Hemoglobin 15.1 13.5 - 17.5 g/dL LAB HEMETOLOGY METHOD 05/03/2025 4:46 PM EDT [facility] Hematocrit 45.9 42.0 - 54.0 % LAB HEMETOLOGY METHOD 05/03/2025 4:46 PM EDT [facility] MCV 83.6 79.0 - 98.0 FL LAB HEMETOLOGY METHOD 05/03/2025 4:46 PM EDT [facility] MCH 27.5 27.0 - 32.0 pcg LAB HEMETOLOGY METHOD 05/03/2025 4:46 PM [facility] MCHC 32.9 32.0 - 37.0 g/dL LAB HEMETOLOGY METHOD 05/03/2025 4:46 PM EDT [facility] RDW 11.9 11.0 - 15.0 % LAB HEMETOLOGY METHOD 05/03/2025 4:46 PM [facility] Platelets 333 130 - 400 K/mcL LAB HEMETOLOGY METHOD 05/03/2025 4:46 PM EDT [facility] MPV 10.6 7.0 - 11.0 FL LAB HEMETOLOGY METHOD 05/03/2025 4:46 PM EDT [facility] NRBC 0.0 <1.0 % LAB HEMETOLOGY METHOD 05/03/2025 4:46 PM [facility] NRBC Absolute 0.00 <0.10 K/mcL LAB HEMETOLOGY METHOD 05/03/2025 4:46 PM [facility] Neutrophils Relative 63.8 % LAB HEMETOLOGY METHOD 05/03/2025 4:46 PM [facility] Lymphocytes Relative 25.6 % LAB HEMETOLOGY METHOD 05/03/2025 4:46 PM [facility] Monocytes Relative 9.0 % LAB HEMETOLOGY METHOD 05/03/2025 4:46 PM [facility] Eosinophils Relative 0.7 % LAB HEMETOLOGY METHOD 05/03/2025 4:46 PM [facility] Basophils Relative 0.4 % LAB HEMETOLOGY METHOD 05/03/2025 4:46 PM [facility] Immature Granulocytes Relative 0.5 % LAB HEMETOLOGY METHOD 05/03/2025 4:46 PM [facility] Neutrophils Absolute 4.66 1.50 - 7.00 K/mcL LAB HEMETOLOGY METHOD 05/03/2025 4:46 PM [facility] Lymphocytes Absolute 1.87 1.00 - 5.00 K/mcL LAB HEMETOLOGY METHOD 05/03/2025 4:46 PM [facility] Monocytes Absolute 0.66 0.20 - 1.00 K/mcL LAB HEMETOLOGY METHOD 05/03/2025 4:46 PM [facility] Eosinophils Absolute 0.05 0.00 - 0.50 K/mcL LAB HEMETOLOGY METHOD 05/03/2025 4:46 PM [facility] Basophils Absolute 0.03 0.00 - 0.20 K/mcL LAB HEMETOLOGY METHOD 05/03/2025 4:46 PM EDT [facility] Immature Granulocytes Absolute 0.04(H) 0.00 - 0.03 K/mcL LAB HEMETOLOGY METHOD 05/03/2025 4:46 PM EDT [facility] Blood Venous blood specimen / Unknown Venipuncture / Unknown 05/03/2025 4:35 PM EDT 05/03/2025 4:40 PM EDT [facility]LO[facility] ORDERABLES Jaylene l Result Performing Organization Address City/[facility]/ZIP Co de Phone Number [facility] [address] [place] [address], [place] [phone] * Lipase (05/03/2025 4:35 PM EDT) Lipase 22 13 - 75 unit/L LAB CHEMISTRY METHOD 05/03/2025 5:29 PM EDT [facility] Blood Venous blood specimen / Unknown Venipuncture / Unknown 05/03/2025 4:35 PM EDT 05/03/2025 4:40 PM [facility]T [facility] BLOOD ORDERABLES Jaylene l Result Performing Organization Address City/[facility]/ZIP Co de Phone Number [facility] [address] [place] [address], [place] [phone] * (ABNORMAL) Comprehensive metabolic panel (05/03/2025 4:35 PM EDT) Sodium 135 133 - 145 mmol/L LAB CHEMISTRY METHOD 05/03/2025 5:29 PM EDT [facility] Potassium 4.5 3.5 - 5.5 mmol/L LAB CHEMISTRY METHOD 05/03/2025 5:29 PM EDT [facility] Chloride 102 96 - 110 mmol/L LAB CHEMISTRY METHOD 05/03/2025 5:29 PM EDT [facility] CO2 27 21 - 32 mmol/L LAB CHEMISTRY METHOD 05/03/2025 5:29 PM [facility] Anion Gap 6 3 - 11 LAB CHEMISTRY METHOD 05/03/2025 5:29 PM [facility] Glucose 107(H) 70 - 100 mg/dL LAB CHEMISTRY METHOD 05/03/2025 5:29 PM [facility] BUN 13 5 - 25 mg/dL LAB CHEMISTRY METHOD 05/03/2025 5:29 PM [facility] Creatinine 1.09 0.70 - 1.30 mg/dL LAB CHEMISTRY METHOD 05/03/2025 5:29 PM [facility] eGFR 91 >=60 mL/min/1. 73m2 LAB CHEMISTRY METHOD 05/03/2025 5:29 PM [facility] Comment:Calculation based on the Chronic Kidney Disease Epidemiology Collaboration (CKD-EPI) equation refit without adjustment for race. BUN/Creatinine Ratio 11.9 LAB CHEMISTRY METHOD 05/03/2025 5:29 PM [facility] Calcium 9.7 8.5 - 10.5 mg/dL LAB CHEMISTRY METHOD 05/03/2025 5:29 PM [facility] AST (SGOT) 17 10 - 42 unit/L LAB CHEMISTRY METHOD 05/03/2025 5:29 PM [facility] ALT (SGPT) 40 10 - 60 unit/L LAB CHEMISTRY METHOD 05/03/2025 5:29 PM [facility] Alkaline Phosphatase 100 42 - 121 unit/L LAB CHEMISTRY METHOD 05/03/2025 5:29 PM [facility] Total Protein 8.0 6.0 - 8.0 g/dL LAB CHEMISTRY METHOD 05/03/2025 5:29 PM [facility] Albumin 4.5 3.2 - 5.0 g/dL LAB CHEMISTRY METHOD 05/03/2025 5:29 PM [facility] Total Bilirubin 0.7 0.0 - 1.4 mg/dL LAB CHEMISTRY METHOD 05/03/2025 5:29 PM EDT [facility] Blood Venous blood specimen / Unknown Venipuncture / Unknown 05/03/2025 4:35 PM EDT 05/03/2025 4:40 PM EDT us Jose CURRY LAB BLOOD ORDERABLES Jaylene l Result [facility] ([facility]) [facility] [address] [place] [address], from Last 3 Months Insurance [place] [id number] [facility] Care Teams Vocational Director Relationship Specialty Start Date End Date Physician, Pcp Unknown PCP - General 05/03/25
== END 2025-05-03 16:11 | disposition left against medical advice (07) ==
PROVIDERS: Emergency Provider Emergency Medicine
DX: R10.10 Upper abdominal pain, unspecified (principal); Z53.21 Procedure and treatment not carried out due to patient leaving prior to being seen by health care provider

== ENCOUNTER 2025-07-11 15:34 | Outpatient (AMB) | payer OTHER, SELFPAY ==
--- NOTE | 2025-07-11 15:38 | A.OFFVIS_ITS ---
Vital Signs 3 07/11/25 15:43 Height 5 ft 10 in Weight 215 lb BMI 30.8 BP 148/82 H Blood Pressure Location Lt brachial Position Sitting Pulse 77 Pulse Source Pulse Oximeter Pulse Oximetry (%) 100 Oxygen Delivery Method Room Air Intake Visit Reasons: LEFT NECK PAIN Intake Note: Pain today 02/03 Implementation Advisor Required: No Allergies diphenhydramine Allergy (Intermediate, Verified 07/11/25 15:43) hives apple (APPLE) Allergy (Mild, Verified 07/11/25 15:43) NECK PAIN COUGH amoxicillin (AMOXICILLIN) Allergy (Unknown, Verified 07/11/25 15:43) HIVES azithromycin (From ZITHROMAX) Allergy (Unknown, Verified 07/11/25 15:43) COLITIS clindamycin (CLINDAMYCIN) Allergy (Unknown, Verified 07/11/25 15:43) GI PROBLEMS lactose (LACTOSE) Allergy (Unknown, Verified 07/11/25 15:43) GI SYMPTOMS, VOMITING, DIFF BREATHING levofloxacin (Levaquin) Allergy (Unknown, Verified 07/11/25 15:43) rash on hand naproxen (NAPROXEN) Allergy (Unknown, Verified 07/11/25 15:43) STOMACH UPSET penicillin V Allergy (Unknown, Verified 07/11/25 15:43) hives Penicillins (PENICILLINS) Allergy (Unknown, Verified 07/11/25 15:43) HIVES Sulfa (Sulfonamide Antibiotics) (SULFA (SULFONAMIDE ANTIBIOTICS)) Allergy (Unknown, Verified 07/11/25 15:43) HIVES aspirin Adverse Reaction (Unknown, Verified 07/11/25 15:43) upset stomach sertraline (Zoloft) Adverse Reaction (Unknown, Verified 07/11/25 15:43) SI thoughts all nsaids Allergy (Unknown, Uncoded 04/07/25 15:12) stomach upset Codeine Phosphate Allergy (Unknown, Uncoded 04/07/25 15:12) hives HPI Comments Details: The patient is a 35-year-old male presenting for an initial evaluation of left- sided cervical radiculopathy. He reports the onset of neck pain around during service, which started insidiously and has progressively worsened. The pain is bilateral but predominantly on the left side and is described as aching, tight, stiff, throbbing, shooting, stabbing, sharp, cramping, burning, and tingling radiating down the left arm with associated numbness in the fingers. The pain is rated up to 10/10 in severity and is worse in the morning, at night, and with cold weather changes and certain movements, including looking up and to the left. It affects his sleep, daily activities, and ability to work, and he often turns his whole body to avoid neck rotation. The patient also reports associated headaches, jaw pain from TMJ, and pain at the left AC joint. Previous diagnostic workup includes a cervical MRI performed months ago which was reviewed by neurosurgery and showed a posterior disc bulge at C5-C6 with very mild ventral cord effacement and mild foraminal stenosis at two levels, for which he was not deemed a surgical candidate. He also had a cervical x-ray in March of this year and a normal EMG for carpal tunnel a long time ago. Past treatments include physical therapy this year, which provided temporary relief with traction, and use of a TENS unit. He has not tried healthcare administrative assistant, massage, or acupuncture. He has had injections in his back and knee which were not helpful, and no prior neck injections. He generally avoids oral medications like Tylenol or ibuprofen due to stomach upset, though he has used patches. He previously tried a low dose of cyclobenzaprine (Flexeril) but found it caused too much sedation and was not helpful. Relevant medical history includes low back pain with two disc bulges, hypertension, lactose intolerance causing vomiting, and a history of a heart murmur and enlarged ventricle, the latter of which was thought to be post-COVID and has since resolved. He denies smoking, alcohol, and marijuana use, and reports caffeine intake but not coffee. Pain Description - Onset and Timing: Began around ; pain is constant and worse in the morning and at night. - Quality and Character: Aching, tight, stiff, burning, throbbing, shooting, stabbing, sharp, cramping, and tingling. - Location and Radiation: Pain is in the neck, predominantly on the left side, and radiates down the left arm. - Severity: Rated up to 10/10. - Exacerbating Factors: Cold weather, movements such as looking up and to the left, heavy lifting, pushing, and pulling. - Relieving Factors: Traction during physical therapy provided temporary relief. - Interference with Function: Affects sleep, daily activities, and work; he has to turn his whole body rather than just his neck. - Associated Symptoms: Numbness in the fingers of the left hand, headaches, and jaw pain. Pain Management - Affect: The patient reports his pain affects his sleep, daily activities, and ability to work. - Analgesia: The patient does not take oral medications like ibuprofen due to stomach upset, but sometimes uses patches. - He reports pain levels up to 10/10. - Adverse Effects: He reports stomach pain with NSAIDs and significant sedation with a prior low-dose muscle relaxant (cyclobenzaprine). - Activities of Daily Living: The pain is functionally limiting, causing him to turn his whole body to look [id number]. - Aberrant Drug-Related Behaviors: No aberrant behaviors were reported or observed; he states he does not take any medication for the pain. [facility] Medical History Enlarged RV (right ventricle) Neck injury Elevated BP without diagnosis of hypertension Surgical History History of tonsillectomy History of anterior cruciate ligament surgery History of knee surgery Family History Mother Hypertension Father Diabetes Hypertension High cholesterol Brother WPW (Tixpf-Xtvfooetk-Wrfxs syndrome) Social History Housing: Apartment Alcohol intake: current Alcohol intake frequency: does not drink Patient Tobacco Use Status: Former Tobacco user e-Cigarette/Vaping Use: Never Used Second Hand Smoke Exposure: Yes service: Yes Current occupational status: employed 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 - Denies visual changes or dizziness. - Gastrointestinal: Reports vomiting with lactose intake and stomach pain with NSAIDs. - Musculoskeletal: Reports constant neck pain, worse on the left. - Reports pain in the left shoulder, low back pain, and muscle spasms in the neck seen on a prior x-ray. - Neurological: Reports numbness and tingling down the left arm to all fingers. Const All systems reviewed & are unremarkable except as noted in HPI and below Physical Exam Vital Signs: Last Vital Signs Pulse 77 07/11/25 15:43 BP 148/82 H 07/11/25 15:43 Pulse Ox 100 07/11/25 15:43 Oxygen Delivery Method Room Air 07/11/25 15:43 BMI result Body Mass Index 30.8 General: Appears afebrile. Alert and oriented. Mood and affect appropriate. Follows and participates in conversation appropriately. Respiratory effort is unlabored. No cough. No nasal discharge. Able to transition from sit to stand unassisted. Ambulates with bilaterally normal heel strike and toe off. Neck Other: Patient with decreased cervical ROM in all planes/especially with right lateral rotation. Reports increased pain with cervical flexion. Spurling compression test equivocal. Elvey's tension test positive on the left, with radiation of pain from neck to wrist and fingers. Lhermitte's test was negative. DTR intact, +2 and symmetrical. Patient demonstrated 5/5 motor strength of bilateral upper extremities. 2 + radial pulses. Significant tightness throughout left upper trapezius as well as TTP throughout bilateral upper trapezius muscles. Mild paravertebral tenderness over facet joint on affected side and left AC joint area. Neck: Yes normal visual inspection, Yes no lymphadenopathy, Yes supple, No anterior neck swelling, No torticollis, Yes no JVD, No prominent supraclavicular fat pad and Yes prominent dorsocervical fat pad Back/Spine/Pelvis Cervical Spine: No Lhermitte's sign positive, cervical muscular tenderness, pain with cervical ROM, No Cervical spine scars present, Cervical spine tenderness (mild on the left mid cervical) and No step off deformity Thoracic/Lumbar Spine: thoracic and lumbar spine normal to inspection, No Thoracic/lumbar spine scar(s), Lasegue's sign negative, straight leg raise negative bilaterally, pain with thoraco-lumbar ROM, thoraco-lumbar ROM limited, No thoracic spinal tenderness and No lumbar spinal tenderness Results Reviewed Results Reviewed: CERVICAL SPINE. LUMBAR SPINE. 12/21/21 CLINICAL INFORMATION: Neck pain and low back pain. COMPARISON: None TECHNIQUE: Lumbar spine 3 views. Cervical spine 3 views. FINDINGS: Lumbar spine: There is normal lumbar lordosis. The vertebral heights, alignment and disc heights are normal. No visible acute fracture, dislocation or lytic process seen. The paravertebral soft tissues are normal. The SI joints are normal. Soft tissues are normal. IMPRESSION: Unremarkable lumbar spine exam. Assessment & Plan Assessment & Plan (1) Left shoulder pain: Code(s): M25.512 - Pain in left shoulder Category: Medical (2) Cervical radicular pain: Code(s): M54.12 - Radiculopathy, cervical region Category: Medical (3) Cervicalgia: Code(s): M54.2 - Cervicalgia Category: Medical (4) Muscle spasms of neck: Code(s): M62.838 - Other muscle spasm Category: Medical (5) Cervical spondylosis: Code(s): M47.812 - Spondylosis without myelopathy or radiculopathy, cervical region Category: Medical (6) Herniation of cervical intervertebral disc with radiculopathy: Code(s): M50.10 - Cervical disc disorder with radiculopathy, unspecified cervical region Category: Medical Plan The patient will obtain and provide a [facility]. An order for a left shoulder X-ray will be placed to rule out shoulder pathology as a contributor to his symptoms. The plan is to proceed with a left parasagittal C5-C6 epidural steroid injection with local anesthetic under fluoroscopy guidance. Expectations, risks and benefits were reviewed. Patient is aware he will be contacted to schedule this procedure. For medication management, a prescription for methocarbamol will be sent, as it is a muscle relaxant that does not contain lactose and is less likely to cause the drowsiness he experienced with cyclobenzaprine. A referral will be submitted for specialist-guided massage therapy. The patient's comorbid low back pain will be addressed at a future appointment after managing the cervical spine issues. All questions and concerns have been answered and patient agreed with the treatment plan. Follow up after injection and sooner as needed. Patient was informed and verbally consented to the use of an ambient scribe for clinic note documentation during this visit. Orders: Orders 2 XR shoulder LT min 2V 07/11/25 M25.512 - Pain in left shoulder Referrals 2 Massage Therapy Referral M47.812 - Spondylosis without myelopathy or radiculopathy, cervical region, M54.12 - Radiculopathy, cervical region, M54.2 - Cervicalgia, M62.838 - Other muscle spasm Medications: New 2 methocarbamol 750 mg PO BID PRN 60 tabs 0RF muscle spasm 30 days M47.812 - Spondylosis without myelopathy or radiculopathy, cervical region, M54.12 - Radiculopathy, cervical region, M62.838 - Other muscle spasm Coding Level of Care Code New Pt Level 4 (84788) Diagnoses Left shoulder pain M25.512 Cervical radicular pain M54.12 Cervicalgia M54.2 Muscle spasms of neck M62.838 Cervical spondylosis M47.812 Herniation of cervical intervertebral disc with radiculopathy M50.10
[2025-07-11 15:43] VITALS: BP 148/82; PULSE 77; O2SAT 100; BMI 30.8
--- OUTSIDE RECORDS SUMMARY | 2025-07-11 22:02 | XMS_ITS | Patient Health Record ---
Author Organization [facility] Address [address] [place] [id number] Care Team Providers Care Manufacturing Scheduler Name Role Phone Norris Villasenor MD Primary Care Provider Cuate Cazares [phone] Allergies Allergen (clinical drug ingredient) Drug/Non Drug Allergy documented on EMR Reaction Allergy Type Onset Date Status apples, dairy,gluten, seasonal allergies (uncoded) Unknown Allergy Active amoxicillin Amoxicillin Unknown Drug Allergy Act dacia diphenhydramine Benadryl Unknown Drug Allergy A ctive azithromycin Zithromax Unknown Drug Allergy Acti ve Penicillin Unknown Drug Allergy Active Sulfa Unknown Drug Allergy Active Reason For Referral No Information Medications Medication SIG (Take, Route, Frequency, Duration) Notes Start Date End Date Status Zantac 300 MG Tablet 1 Orally BID Active Dicyclomine HCl 10 MG Capsule 1-2 capsules Orally Four times a dayprn abdominal cramps/bloating/disc omfort--may take before meals to try to prevent the symptoms; Duration: 30 day(s) 11/28/2016 Active Gas-X Active Multivitamin Active ibuprofen Several times a week Active albuterol Active ZyrTEC Allergy Activ e Social History Tobacco Use: Social History Observation Description Date Details (start date - stop date) Current Smoker NA - NA Social History Drugs/Alcohol: Social Info Question Answer Notes Alcohol Screen Did you have a drink containing alcohol in the past year? No Points 0 Interpretation Negative Tobacco Use: Social Info Question Answer Notes Tobacco Use/Smoking Patient is a current smoker How often do you smoke cigarettes? every day How many cigarettes a day do you smoke? 11-20 How soon after you wake up do you smoke your first cigarette? 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: Smoker; no alcohol Problems Problem Type SNOMED Code ICD Code Onset Dates Problem Status W/U Status Risk Notes Problem Gastroesophageal reflux disease (512419118) Gastroesophageal reflux disease, esophagitis presence not specified (K21.9) Active confirmed Problem Diarrhea (33596725) Diarrhea, unspecified type (R19.7) Active confirmed Problem Irritable bowel syndrome (23662508) Irritable bowel syndrome, unspecified type (K58.9) Active confirmed Plan Of Treatment Pending Test Test Name Order Date CELIAC PANEL #10 11/28/2016 Future Test Test Name Order Date FLEXIBLE SIGMOIDOSCOPY, DIAGNOSTIC 11/28 UPPER GI ENDOSCOPY 11/28/2016 Insurance Providers Payer Name Payer Address Payer Phone Subscriber Number Group Number Insured Name Patient Relationship to Insured Coverage Start Date Coverage End Date [facility] [address] [address] [place], [place] [id number] [phone] [id number] ADAM BEST Self - patient is the insured Medical (General) History Medical History History ICD Code Seasonal allergies Asthma Heart murmur-he reports that he takes an tibiotics before procedures Denies ND,DM,CVA,Lung disease,renal dise ase Surgical History Surgery Date(Month/Year) Tonsillectomy Right knee arthroscopy reconstruction, m eniscus repair Cysts removed-- neck , back and scalp
--- OUTSIDE RECORDS SUMMARY | 2025-07-11 22:02 | XMS_ITS | Clinical Summary ---
Author Organization [facility] Address [address] [place] [address] Phone Care Team Providers Care Computer Specialist Name Role Phone Physician, Pcp Unknown Primary Care Provider Jessica vailable Allergies Active Allergy Reactions Criticality Noted Date Comments Amoxicillin 05/03/2025 Azithromycin 05/03/2025 Penicillin V 05/03/2025 Sulfa (Sulfonamide Antibiotics) 01/2025 Medications sucralfate (CARAFATE) 1 gram tablet Take 1 tablet (1 g total) by mouth 4 (four) times a day (before meals and nightly). 120 each 11 05/03/2025 Active Encounters Date Type Department Care Team Description 05/03/2025 5:30 PM EDT - 05/03/2025 7:08 PM EDT Emergency [facility] Emergency [address] [place] [address] Tio Gilliland MD Abdominal pain, epigastric (Primary Dx); Hepatic steatosis Discharge Disposition: Home or Self Care from Last 3 Months Social History Tobacco [...] on file Sexual Orientation Not on file Last Filed Vital Signs Vital Sign Reading [...] Health Maintenance Due Date Last Done Comments IPV Vaccines (2 of 3 - Adult catch-up series) 10/04/2011 09/06/2011 HPV Vaccines (1 - 3-dose SCDM series) 2016 Cholesterol Screening (Lipid Panel) 08/22/2023 HIV Screening 08/22/2023 Hepatitis C Screening 08/22/2023 Social Influencers of Health Screening 08/22/2023 Depression Screening 07/28/2024 COVID-19 Vaccine ( - season) 2025 Influenza Vaccine (#1) 2025 05/10/2012, 2011 DTaP,Tdap,and Td Vaccines (3 - Td or Tdap) 03/08/2034 03/08/2024, 09/06/2011 RSV Immunization Adult Patients (1 - 1-dose 75+ series) 2064 Meningococcal ACWY Vaccine Aged Out 09/06/2011 N o longer eligible based on patient's age to complete this topic Varicella Vaccines Aged Out 11/15/2011, 09/06/2011 No longer eligible based on patient's age to complete this topic Hepatitis A Vaccines Aged Out 08/01/2012, 08/01/2012, 11/15/2011, Additional history exists No longer eligible based on patient's age to complete this topic Hepatitis B Vaccines Completed 08/01/2012, 08/01/2012, 11/15/2011, Additional history exists HIB Vaccines Aged Out No longer eligi ble based on patient's age to complete this topic MMR Vaccines Aged Out No longer eligi ble based on patient's age to complete this topic Meningococcal B Vaccine Aged Out No l onger eligible based on patient's age to complete this topic Pneumococcal Vaccine: Pediatrics (0 to 5 Years) and At-Risk Patients (6 to 49 Years) Aged Out No longer eligible based on patient's age to complete this topic RSV Immunization Patients Under 20 months Aged Out No longer eligible based on patient's age to complete this topic Procedures Procedure Name Priority Date/Time Associated Diagnosis Comments US ABDOMEN LIMITED STAT 05/03/2025 6: 19 PM EDT CBC WITH AUTO DIFFERENTIAL STAT 05/03/2025 4:35 PM EDT LIPASE STAT 05/03/2025 4:35 PM EDT COMPREHENSIVE METABOLIC PANEL STAT 05/03/2025 4:35 PM EDT CBC AND DIFFERENTIAL STAT 05/03/2025 4:35 PM EDT from Last 3 Months Results * US Abdomen Limited (05/03/2025 6:19 PM EDT) Anatomical Region Laterality Modality Body Ultrasound 05/03/2025 6:52 PM EDT Impressions 05/03/2025 6:52 PM EDT 1. No acute process. 2. Hepatic steatosis. This document has been electronically signed by: Sameer Garnica MD on 05/03/2025 18:52:50 Narrative 05/03/2025 6:52 PM EDT INDICATION: upper abd pain, nausea, reported hx of gallstones US abdomen limited Comparison: None provided Findings: The visualized pancreas is normal. The aorta and inferior vena cava are normal caliber. The liver is normal in size and demonstrates increased echotexture with relative sparing adjacent to the gallbladder fossa consistent with fatty sparing. There is no intrahepatic bile duct dilatation. The common duct is 2 mm in diameter. The gallbladder is normal. There is no sonographic Gee sign. The main portal vein is antegrade. The right kidney is 11.1 cm in length. No ascites. Procedure Note Sameer Garnica MD - 05/03/2025 INDICATION: upper abd pain, nausea, reported hx of gallstones US abdomen limited Comparison: None provided Findings: The visualized pancreas is normal. The aorta and inferior vena cava are normal caliber. The liver is normal in size and demonstrates increased echotexture with relative sparing adjacent to the gallbladder fossa consistent with fatty sparing. There is no intrahepatic bile duct dilatation. The common duct is 2 mm in diameter. The gallbladder is normal. There is no sonographic Gee sign. The main portal vein is antegrade. The right kidney is 11.1 cm in length. No ascites. IMPRESSION: 1. No acute process. 2. Hepatic steatosis. This document has been electronically signed by: Sameer Garnica MD on 05/03/2025 18:52:50 us Tio Gilliland MD IMG US PROCEDURES Final Resu lt * (ABNORMAL) CBC auto differential (05/03/2025 4:35 PM EDT) WBC 7.3 4.8 - 10.8 K/mcL LAB HEMETOLOGY METHOD 05/03/2025 4:46 PM EDT [facility] RBC 5.50 4.50 - 5.50 M/mcL LAB HEMETOLOGY METHOD 05/03/2025 4:46 PM EDT [facility] Hemoglobin 15.1 13.5 - 17.5 g/dL LAB HEMETOLOGY METHOD 05/03/2025 4:46 PM EDT [facility] Hematocrit 45.9 42.0 - 54.0 % LAB HEMETOLOGY METHOD 05/03/2025 4:46 PM EDT [facility] MCV 83.6 79.0 - 98.0 FL LAB HEMETOLOGY METHOD 05/03/2025 4:46 PM EDT [facility] MCH 27.5 27.0 - 32.0 pcg LAB HEMETOLOGY METHOD 05/03/2025 4:46 PM EDT [facility] MCHC 32.9 32.0 - 37.0 g/dL LAB HEMETOLOGY METHOD 05/03/2025 4:46 PM EDT [facility] RDW 11.9 11.0 - 15.0 % LAB HEMETOLOGY METHOD 05/03/2025 4:46 PM [facility] Platelets 333 130 - 400 K/mcL LAB HEMETOLOGY METHOD 05/03/2025 4:46 PM [facility] MPV 10.6 7.0 - 11.0 FL LAB HEMETOLOGY METHOD 05/03/2025 4:46 PM [facility] NRBC 0.0 <1.0 % LAB HEMETOLOGY METHOD 05/03/2025 4:46 PM [facility] NRBC Absolute 0.00 <0.10 K/mcL LAB HEMETOLOGY METHOD 05/03/2025 4:46 PM [facility] Neutrophils Relative 63.8 % LAB HEMETOLOGY METHOD 05/03/2025 4:46 PM [facility] Lymphocytes Relative 25.6 % LAB HEMETOLOGY METHOD 05/03/2025 4:46 PM [facility] Monocytes Relative 9.0 % LAB HEMETOLOGY METHOD 05/03/2025 4:46 PM [facility] Eosinophils Relative 0.7 % LAB HEMETOLOGY METHOD 05/03/2025 4:46 PM [facility] Basophils Relative 0.4 % LAB HEMETOLOGY METHOD 05/03/2025 4:46 PM [facility] Immature Granulocytes Relative 0.5 % LAB HEMETOLOGY METHOD 05/03/2025 4:46 PM [facility] Neutrophils Absolute 4.66 1.50 - 7.00 K/mcL LAB HEMETOLOGY METHOD 05/03/2025 4:46 PM [facility] Lymphocytes Absolute 1.87 1.00 - 5.00 K/mcL LAB HEMETOLOGY METHOD 05/03/2025 4:46 PM [facility] Monocytes Absolute 0.66 0.20 - 1.00 K/mcL LAB HEMETOLOGY METHOD 05/03/2025 4:46 PM EDT [facility] Eosinophils Absolute 0.05 0.00 - 0.50 K/[facility] LAB HEMETOLOGY METHOD 05/03/2025 4:46 PM EDT [facility] Basophils Absolute 0.03 0.00 - 0.20 K/[facility] LAB HEMETOLOGY METHOD 05/03/2025 4:46 PM EDT [facility] Immature Granulocytes Absolute 0.04(H) 0.00 - 0.03 K/[facility] LAB HEMETOLOGY METHOD 05/03/2025 4:46 PM EDT [facility] Blood Venous blood specimen / Unknown Venipuncture / Unknown 05/03/2025 4:35 PM EDT 05/03/2025 4:40 PM EDT Jose Abernathy AR LAB BLOOD ORDERABLES Jaylene l Result Performing Organization Address City/[facility]/ZIP Co de Phone Number [facility] [address] [place] [address], [place] [phone] * Lipase (05/03/2025 4:35 PM EDT) Pathologist [facility] Lipase 22 13 - 75 unit/L LAB CHEMISTRY METHOD 05/03/2025 5:29 PM EDT [facility] Blood Venous blood specimen / Unknown Venipuncture / Unknown 05/03/2025 4:35 PM EDT 05/03/2025 4:40 PM EDT Josevani Ashley Michela PA LAB BLOOD ORDERABLES Jaylene l Result [facility] [address] [place] [address], [place] [phone] * (ABNORMAL) Comprehensive metabolic panel (05/03/2025 4:35 PM EDT) Pathologist [facility] Sodium 135 133 - 145 mmol/L LAB CHEMISTRY METHOD 05/03/2025 5:29 PM [facility] Potassium 4.5 3.5 - 5.5 mmol/L LAB CHEMISTRY METHOD 05/03/2025 5:29 PM [facility] Chloride 102 96 - 110 mmol/L LAB CHEMISTRY METHOD 05/03/2025 5:29 PM [facility] CO2 27 21 - 32 mmol/L LAB CHEMISTRY METHOD 05/03/2025 5:29 PM [facility] Anion Gap 6 3 - 11 LAB CHEMISTRY METHOD 05/03/2025 5:29 PM [facility] Glucose 107(H) 70 - 100 mg/dL LAB CHEMISTRY METHOD 05/03/2025 5:29 PM [facility] BUN 13 5 - 25 mg/dL LAB CHEMISTRY METHOD 05/03/2025 5:29 PM [facility] Creatinine 1.09 0.70 - 1.30 mg/dL LAB CHEMISTRY METHOD 05/03/2025 5:29 PM [facility] eGFR 91 >=60 mL/min/1. 73m2 LAB CHEMISTRY METHOD 05/03/2025 5:29 PM [facility] Comment:Calculation based on the Chronic Kidney Disease Epidemiology Collaboration (CKD-EPI) equation refit without adjustment for race. BUN/Creatinine Ratio 11.9 LAB CHEMISTRY METHOD 05/03/2025 5:29 PM [facility] Calcium 9.7 8.5 - 10.5 mg/dL LAB CHEMISTRY METHOD 05/03/2025 5:29 PM [facility] AST (SGOT) 17 10 - 42 unit/L LAB CHEMISTRY METHOD 05/03/2025 5:29 PM [facility] ALT (SGPT) 40 10 - 60 unit/L LAB CHEMISTRY METHOD 05/03/2025 5:29 PM [facility] Alkaline Phosphatase 100 42 - 121 unit/L LAB CHEMISTRY METHOD 05/03/2025 5:29 PM EDT [facility] Total Protein 8.0 6.0 - 8.0 g/dL LAB CHEMISTRY METHOD 05/03/2025 5:29 PM EDT [facility] Albumin 4.5 3.2 - 5.0 g/dL LAB CHEMISTRY METHOD 05/03/2025 5:29 PM EDT [facility] Total Bilirubin 0.7 0.0 - 1.4 mg/dL LAB CHEMISTRY METHOD 05/03/2025 5:29 PM EDT [facility] Blood Venous blood specimen / Unknown Venipuncture / Unknown 05/03/2025 4:35 PM EDT 05/03/2025 4:40 PM EDT us Jose CURRY LAB BLOOD ORDERABLES Jaylene l Result [facility] [address] [place] [address], from Last 3 Months Insurance [facility] Care Teams Computer Specialist Relationship Specialty Start Date End Date Physician, Pcp Unknown PCP - General 05/03/25
== END 2025-07-11 16:12 | disposition home or self-care (01) ==
LOC: HO.PMC 15:35
PROVIDERS: Visit Provider Nurse Practitioner Family
DX: M25.512 Pain in left shoulder (principal); M54.12 Radiculopathy, cervical region; M54.2 Cervicalgia; M62.838 Other muscle spasm; M47.812 Spondylosis without myelopathy or radiculopathy, cervical region; M50.10 Cervical disc disorder with radiculopathy, unspecified cervical region
CPT/HCPCS: 99204

== ENCOUNTER → 2025-07-11 15:34 | Outpatient (BNVA) | payer OTHER, SELFPAY | PROVIDERS: Visit Provider Nurse Practitioner Family | DX: M47.22 Other spondylosis with radiculopathy, cervical region (principal); M25.512 Pain in left shoulder; M62.838 Other muscle spasm | CPT/HCPCS: 99202 ==